=== PATIENT | male | born 1945 | race Caucasian/White ===

== ENCOUNTER 2019-09-22 06:47 | Observation (INO) | payer OTHER, SELFPAY ==
[2019-09-22] VITALS (19 sets, daily range): BP systolic 114–197; BP diastolic 66–91; PULSE 44–94; RESP 12–21; TEMP 36.5–37.1; O2SAT 14–96; BMI 40.8; BMI 39.4
--- NOTE | 2019-09-22 06:52 | CT_ITS ---
We are attempting to reach an attending provider to discuss findings. An addendum with communication details will be sent when the communication is complete. STUDY: CT BRAIN WITHOUT CONTRAST REASON FOR EXAM: Male, 74 years old. Neurological deficit, slurred speech and facial droop. RADIATION DOSAGE (If Supplied By Facility): CTDIvol = ( 44.99 ) mGy, DLP = ( 846.73 ) mGycm TECHNIQUE: Transaxial CT imaging of the brain was performed without administration of intravenous contrast material. Individualized dose optimization techniques were used for this CT. COMPARISON: No relevant priors. FINDINGS: Normal soft tissue structures. Normal calvarium. There is mild cerebral atrophy with widening of the extra-axial spaces and ventricular dilatation. Normal white matter tracts of the cerebral hemispheres. Normal basal ganglia and thalami. Normal brainstem. Normal cerebellum. There is no intracranial hemorrhage. There are no findings of an acute ischemic infarction. There is mild mucosal thickening involving the ethmoidal cells and left frontal sinus consistent with sequela of sinusitis. CT/Brain/Head without Contrast IMPRESSION: Mild generalized brain atrophy along with microangiopathic white matter disease. No acute intracranial hemorrhage or space-occupying lesion. Electronically Signed: Swati Rand MD at 7:12 EST , Service support ,
--- NOTE | 2019-09-22 06:52 | RAD_ITS ---
STUDY: X-RAY CHEST REASON FOR EXAM: Male, 74 years old. Arrhythmia. TECHNIQUE: Single AP portable view of the chest. COMPARISON: None. FINDINGS: EKG electrodes are seen. The lungs are clear and expanded. There is no demonstrated pleural abnormality. There is moderate cardiac enlargement. Normal mediastinum and george. Normal visualized pulmonary arteries. There is atherosclerotic tortuosity of the aortic arch and descending thoracic aorta. There are diffuse degenerative changes of the visualized thoracic spine. There is degenerative osteoarthritis of the bilateral shoulders. There is no demonstrated abnormality of the visualized soft tissue structures of the upper abdomen. RAD/Chest 1 View IMPRESSION: Moderate cardiomegaly. Electronically Signed: Nicola Tarango, at 8:03 EST , Service support ,
--- NOTE | 2019-09-22 06:52 | EKG12_ITS ---
Test Reason : CVA Blood Pressure : / mmHG Vent. Rate : 048 BPM Atrial Rate : 048 BPM P-R Int : 180 ms QRS Dur : 092 ms QT Int : 482 ms P-R-T Axes : 034 -28 013 degrees QTc Int : 430 ms Sinus bradycardia Low voltage QRS Possible Inferior infarct , age undetermined Abnormal ECG Confirmed by CECIL SMITH, FABIOLA ([id number]), video editor LORRIE MALONE ([id number]) on 09/26/2019 9:15:05 AM Referred By: EDUAR Confirmed By:MODE JACOB MD
--- NOTE | 2019-09-22 06:54 | ED.DCSUM_ITS ---
History of Present Illness Chief Complaint: Neuro S/Sx Informant: Family, Chief Cardiopulmonary Technologist Onset: Today Context: - - wake up Timing: Continuous Quality and Location: Slurred Speech, Expressive Aphasia Narrative: Patient is a 74-year-old [employer] male with no known medical history presenting with speech changes. Per EMS report, patient went to bed at 10 PM and was fine. When he woke up this morning his speech was slurred and he had a hard time communicating. EMS was also concerned that he was drooling out of the right side of his mouth. Fingerstick blood glucose was normal. Patient denies any t rauma or falls. He is not on any anticoagulation or any medications besides herbal supplements. He denies any pain or any other complaints at this time. Prior similar symptoms: No Recent Illness/Hospitalization: No Past Medical History - Allergies and Home Meds Allergies/Adverse Reactions: Allergies No Known Allergies Allergy (Verified 09/22/19 06:51) Primary Care Physician: Chris Santana DO [Primary Care Provider] - Past Medical History: None Surgical History: noncontributory Lives: With Family Alcohol: None Drugs: None Review of Systems General: Denies: Chills, Fever, Sweats Eyes: Denies: Visual changes - bilaterally, Diplopia Cardiovascular: Denies: Chest pain, Palpitations Respiratory: Denies: Dyspnea, Cough Gastrointestinal: Denies: Abdominal pain, Nausea, Vomiting Genitourinary: Denies: Dysuria, Hematuria, Frequency Musculoskeletal: Denies: Back pain, Extremity Pain Skin: Denies: Rash, Wounds Neurological: Reports: - - Unable to speak. Denies: Headache, Weakness, Numbness STROKE Vital Signs/Narrative: Vital Signs Temp Pulse Resp BP Pulse Ox 09/22/19 06:48 97.7 F L 50 L 18 193/89 H 93 Inital Vital Signs reviewed: Yes - NIHSS Initial 1a Level of Consciousness: 0 1b LOC Questions (Score 2 if aphasic/stupor): 2 1c LOC Commands (Only score 1st attempt): 0 2 Best Gaze (If aphasic, use reflexive mvmts.): 0 3 Visual: 0 4 Facial Palsy: 0 5 Motor Arm Right (UN = amputation/fusion): 0 5 Motor Arm Left: 0 6 Motor Leg Right: 0 6 Motor Leg Left: 0 7 Limb ataxia (Only + if out of proportion): 0 8 Sensory (Aphasia/stupor=0 or 1, coma=2): 0 9 Best Language: 2 10 Dysarthria (mute, coma=2, intubated=UN): 2 11 Extinction and Inattention (only scored if +): 0 Total Score: 6 General: Well nourished, Well developed Head: Normocephalic, Atraumatic Eyes: Perrl, EOMI ENT: Moist mucous membranes, No rhinorrhea Neck: Supple, Nontender Cardiovascular: Regular rate, Regular rhythm, No murmurs Respiratory: No distress, CTA bilaterally, Chest nontender Abdomen: Soft, Nontender, Nondistended, Normal bowel sounds Back: Nontender, Normal Inspection Extremities: Nontender, No edema Skin: Normal color, No rash Neurological: Alert, Oriented x3, Cranial nerves II-XII grossly intact, Normal Strength, Normal Sensation. Negative for: Parasthesia, Left side facial droop, Right side facial droop Psychological: Normal affect Diagnostic/Tx/Re-eval - Rhythm Strip Rhythm Strip: Sinus bradycardia Ectopy: None - EKG Initial EKG Interpretation: Sinus Bradycardia, - - This bradycardia at a rate of 48 IA interval 180 QRS 92 QT/QTc 482/430 Left axis deviation Normal ST segments - Medical Decision Making Stroke Team Activated: Yes Reviewed Inclusion/Exclusion criteria: Yes Was Patient considered for Endovascular Intervention?: Yes IV Alteplase (t-PA) Administered: No Patient is evaluated for what appears to be a wake-up stroke. Patient is an NIH of 6. He has no other complaints. Patient is hypertensive and mildly bradycardic but he is alert and following commands easily. Stat head CT shows no acute intracranial process. Tele-stroke evaluated patient and recommends transfer for potential thrombectomy. CT of the head and neck is obtained to see if that is a viable option. Patient was signed out to oncoming physician for final disposition and reviewing the results. Anticipate admission. If CTA of the head and neck shows a large vessel occlusion, patient will be transferred to [facility] or [facility] for thrombectomy. ED Disposition - Plan for ED Patient: Diagnosis: Expressive aphasia Referrals: Chris Santana DO [Primary Care Provider] -
--- NOTE | 2019-09-22 06:56 | ED.RN ---
[facility] EMERGENCY LINE CONTACT AT THIS TIME
[2019-09-22 07:18] LABS: Absolute Lymphocyte Count 1.41 X10^3/uL (0.83-4.51); Absolute Neutrophil Count 1.8 X10^3/uL (2.0-7.7); Basophil# 0.01 X10^3/uL; Basophil% 0.2 % (0-1); Eosinophil# 0.04 X10^3/uL; Hematocrit 40.2 % (40-54); Hemoglobin 12.9 g/dL (13.0-16.5); Lymphocyte # 1.41 X10^3/ul (4.0); Lymphocyte % 34.9 % (19-41); Mean Corp Hgb Conc 32.1 g/dL (32-36); Mean Corpuscular Hgb 32.7 pg (27.0-32.0); Mean Corpuscular Volume 101.8 fL (80-94); Monocyte% 17.3 % (0-10); NRBC Flagged by Analyzer 0 % (0-5); Neutrophil % 44.6 % (47-70); Platelet Count 119 K/mm3 (150-450); RBC Distribution Width CV 12.4 % (11.6-14.6); RBC Distribution Width SD 46.4 fl (35.1-43.9); Red Blood Count 3.95 M/mm3 (4.6-6.2)
--- NOTE | 2019-09-22 07:18 | CT_ITS ---
HISTORY: CVA APHASIA STARTED THIS AM TECHNIQUE: CT angiogram of the brain was performed with IV contrast. CT angiogram images of the neck were obtained with IV contrast. 3D reconstructions were reviewed to aid in vascular evaluation. NASCET criteria using the distal internal carotid arteries were used for evaluation of stenoses. A radiation dose optimization technique was used for this scan. IV Contrast dosage and agent: 100 ml [id number] Number of images including paperwork: [id number] COMPARISON: Noncontrast CT 09/22/2019 CTA neck: FINDINGS: AORTIC ARCH AND BRANCHES: No dissection. RIGHT CAROTID ARTERIES: No occlusion, significant stenosis or dissection. Mild atherosclerotic plaque at the bifurcation. LEFT CAROTID ARTERIES: No occlusion, significant stenosis or dissection. Mild to moderate atherosclerotic plaque at the bifurcation. RIGHT VERTEBRAL ARTERY: Diminutive, ends in PICA. No occlusion, significant stenosis or dissection. LEFT VERTEBRAL ARTERY: No occlusion, significant stenosis or dissection. NECK SOFT TISSUES: Unremarkable. LUNG APICES: Unremarkable. BONES: Unremarkable. IMPRESSION: No significant stenosis of either internal carotid artery. CTA head: FINDINGS: INTERNAL CAROTID ARTERIES: No significant stenosis of the intracranial segments. ANTERIOR CEREBRAL ARTERIES: No significant stenosis of the visualized segments. 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 MIDDLE CEREBRAL ARTERIES: No significant stenosis of the visualized segments. VERTEBRAL ARTERIES: Diminutive on the right, ends in PICA. No significant stenosis of the intradural/visualized segments on the left. BASILAR ARTERY: No significant stenosis. POSTERIOR CEREBRAL ARTERIES: No significant stenosis of the visualized segments. POSTERIOR COMMUNICATING ARTERIES: Visualized on the right No evidence of or vascular malformation. CT/CTA Head AND Neck W/ Contrast IMPRESSION: No arterial occlusion or vascular malformation. Anterior communicating artery aneurysm. Individualized dose optimization techniques were used for this CT. at 0756 Reported and signed by: Pricila Dill MD N.B. : The above information has been verbally conveyed by Pricila Dill MD to Dr. Javier on 09/22/2019 07:56:17 (ET). Electronically Signed: Pricila Dill MD at 7:56 EST Tel , Service support ,
--- NOTE | 2019-09-22 07:20 | ED.RN ---
DISCUSSION WITH PATIENT AND FAMILY AT THIS TIME ABOUT CARE OF PLAN FOR PATIENT. [facility] NEUROLOGIST WOULD LIKE PATIENT TRANSFERRED AT THIS TIME FOR FURTHER TREATMENT. DISCUSSION MADE TO COMPLETE CTA OF HEAD AND NECK AND DECIDED ON TREATMENT PLAN FAMILY DECIDING WHETHER TO BE TRANSFERRED TO [facility] FOR [facility]
[2019-09-22 07:22] LABS: Anion Gap 4 (5-15); BUN 24 mg/dL (7-18); BUN/Creat Ratio 19.7 RATIO (10-20); Chloride 108 mmol/L (98-107); Creatinine, Serum 1.22 mg/dL (0.70-1.30); EST Glomerular Filtration Rate 61 mL/min (>60); Est Glom Filt Rate - Afr Amer 74 mL/min (>60); Estimated Creatinine Clearance 51.51 ml/min; Glucose 97 mg/dL (74-106); Potassium 4.2 mmol/L (3.5-5.1); Sodium Level 140 mmol/L (136-145)
--- NOTE | 2019-09-22 07:23 | ED.RN ---
PATIENT TO CT FOR CTA AT THIS TIME
[2019-09-22 07:25] LABS: International Normalized Ratio 1.1; Prothrombin Time (Protime)PT. 14.2 SECONDS (11.7-14.9)
[2019-09-22 07:26] LABS: Partial Thromboplast Time 29.7 Seconds (24.1-36.2)
--- NOTE | 2019-09-22 07:57 | ED.RN ---
[facility] PAGED FOR DR WITT TO SPEAK TO [facility] NEUROLOGIST
--- NOTE | 2019-09-22 08:40 | HP.PCM_ITS ---
History of Present Illness Date of Admission: 09/22/19 Chief Complaint: slurred speech The patient is a 74 year old M with significant past medical history. He was admitted through the ED on 09/22/2019 with complaint of slurred speech. His last known well was approximately 5:30 AM this morning. He woke up and said he was able to see if you would normally but then suddenly started having slurring of speech. He was unable to communicate effectively with his family as he could not express what he wanted to say and had to write down everything he wanted to say. He denied any headache, blurred vision, mouth droop, focal weakness, numbness or tingling. He is never had symptoms like these before. Review of systems was otherwise negative. In the ED, vitals were significant for heart rate of 44 and blood pressure 146/77 was otherwise unremarkable. Chemistry was unremarkable and CBC was significant for hemoglobin of 12.9 and MCV of 101.8 but was otherwise unremarkable. Initial troponin was negative and lipid panel was also unremarkable. Brain CT showed mild generalized brain atrophy with microangiopathic white matter with no acute intracranial process. CTA of the head and neck showed no arterial occlusion or vascular malformation and an anterior communicating artery aneurysm. [] Past Medical History Allergies No Known Allergies Allergy (Verified 09/22/19 06:51) Home Medications: Ambulatory Orders Medication Instructions Recorded NK 09/22/19 Surgical History: noncontributory Psychiatric History: No pertinent psych hx Lives: With Family Smoking Status: Never smoker Alcohol: None Drugs: None - *Family History Paternal History Items: Heart Disease Review of Systems Constitutional: Denies: Chills, Fever, Malaise, Weakness, Weight Change Eyes: Denies: Blurred vision, Double vision HEENT: Denies: Dysphasia, Head Aches, Sinus Congestion, Sinus Drainage Cardiovascular: Denies: Chest Pain, Chest Pressure, Palpitations Respiratory: Denies: Cough, Shortness of Breath, Shortness of breath at rest, Shortness of breath upon exertion, Sputum production Gastrointestinal: Denies: Abdominal Pain, Nausea, Vomiting Genitourinary: Denies: Dysuria Musculoskeletal: Denies: Joint Pain, Joint Tenderness Skin: Denies: Rash, Wounds Neurological: Reports: Change in Speech, Slurred speech. Denies: Double vision, Focal weakness, Headaches, Incoordination, Numbness, Tingling, Tremor Psychiatric: Denies: Anxiety, Depression, Homicidal Ideations, Suicidal Ideations Hematologic/ Lymphatic: Denies: Easy Bruising, Easy Bleeding VTE Information - Inpt Only VTE Present on Admission: No VTE Pharm Prophylaxis ordered?: Yes Patient Problems: Active and Suspected Problems Expressive aphasia (Acute) Stroke (Acute) - Physical Exam Vitals/I&O's: Vital Signs Temp Pulse Resp BP Pulse Ox 97.8 F 46 L 15 184/82 H 96 09/22/19 08:00 09/22/19 08:00 09/22/19 08:00 09/22/19 08:00 09/22/19 08:00 Oxygen Delivery Method Room Air Weight: 276 lb 10.882 oz Body Mass Index (BMI) 40.8 Finger Stick Blood Glucose 108 General: Alert, Oriented x3, Cooperative, No apparent distress HEENT: Atraumatic, PERRLA, EOMI, Normocephalic Oral: Moist Mucosa Neck: Supple, No JVD, Negative Carotid Bruits Lungs: Clear to auscultation, Normal air movement Cardiovascular: Regular rate, No murmurs Abdomen: Bowel Sounds Present, Soft, Non Tender Extremities: No edema, Capillary Refill Less than 3 Seconds Skin: No rashes, No breakdown Musculoskeletal: No Tenderness to Palpation of Joints or Extremities Lymphatic: No Cervical, Supraclavicular, or Inguinal Adenopathy Neurological: Cranial nerves II-XII grossly intact, Motor Exam 5/5 strength throughout, Slurred Speech, Muscle tone normal, Sensory exam intact to light touch and pain, Coordination normal Psych/Mental Status: Normal Affect, Appropriate, Alert and oriented to time, place, person, mood and affect Laboratory Results 09/22/19 06:55: PT Cancelled, INR Cancelled, APTT Cancelled 09/22/19 06:55: Sodium 140, Potassium 4.2, Chloride 108 H, Carbon Dioxide 28.0, Anion Gap 4 L, BUN 24 H, Creatinine 1.22, Estim Creat Clear Calc 51.51, Est GFR (MDRD) Af Amer 74, Est GFR (MDRD) Non-Af 61, BUN/Creatinine Ratio 19.7, Glucose 97, Calcium 9.0, Troponin I < 0.015 09/22/19 07:05: WBC 4.0 L, RBC 3.95 L, Hgb 12.9 L, Hct 40.2, MCV 101.8 H, MCH 32.7 H, MCHC 32.1, RDW Std Deviation 46.4 H, RDW Coeff of Alonso 12.4, Plt Count 119 L, MPV 11.0, Immature Gran % (Auto) 2.000 H, Neut % (Auto) 44.6 L, Lymph % (Auto) 34.9, [place] % (Auto) 17.3 H, Eos % (Auto) 1.0, Baso % (Auto) 0.2, Absolute Neuts (auto) 1.8 L, Absolute Lymphs (auto) 1.41, Nucleated RBC % 0 09/22/19 07:05: PT 14.2, INR 1.1, APTT 29.[address] 09/22/19 06:52 IMPRESSION: Mild generalized brain atrophy along with microangiopathic white matter disease. No acute intracranial hemorrhage or space-occupying lesion. Electronically Signed: Swati Rand MD at 7:12 EST , Service support , ADDENDUM: 09/22/19 0722 IMPRESSION: Mild generalized brain atrophy along with microangiopathic white matter disease. No acute intracranial hemorrhage or space-occupying lesion. N.B. : The above information has been verbally conveyed by Swati Rand MD to Dr Johanny MD, on 09/22/2019 07:15:34 (ET). Electronically Signed: Swati Rand MD at 7:12 EST , Service support , Chest X-Ray 09/22/19 06:52 IMPRESSION: Moderate cardiomegaly. Electronically Signed: Nicola Tarango, at 8:03 EST , Service support , Head/Neck CTA 09/22/19 07:18 IMPRESSION: No arterial occlusion or vascular malformation. Anterior communicating artery aneurysm. Individualized dose optimization techniques were used for this CT. at 0756 Reported and signed by: Pricila Dill MD N.B. : The above information has been verbally conveyed by Pricila Dill MD to Dr. Javier on 09/22/2019 07:56:17 (ET). Electronically Signed: Pricila Dill MD at 7:56 EST Tel , Service support , ADDENDUM: 09/22/19 0803 IMPRESSION: No arterial occlusion or vascular malformation. Anterior communicating artery aneurysm. Individualized dose optimization techniques were used for this CT. at 0756 Reported and signed by: Pricila Dill MD N.B. : The above information has been verbally conveyed by Pricila Dill MD to Dr. Javier on 09/22/2019 07:56:17 (ET). Electronically Signed: Pricila Dill MD at 7:56 EST Tel , Service support , Brain MRI 09/22/19 11:16 IMPRESSION: Involutional changes of the brain, as described above. Focal gliosis of the cortex of the left parietal lobe likely from prior infarct. No restricted diffusion on the ADC map to suggest acute infarct. Electronically Signed: Benji Noble MD at 13:01 EST Tel , Service support , Assessment/Plan All Active Problems Expressive aphasia (Acute) Stroke (Acute) 74 y/o male admitted with a complaint of slurred speech 1. Acute expressive aphasia due to acute ischemic CVA * admit to PCU with telemetry * NIHSS on admission on floor was 3, but it was 6 in ED, [facility] telestroke consult was done and patient was deemed not meeting criteria for tPA. * CT brain was negative for any acute intracranial process * CTA head/neck: no evidence of arterial occlusion or vascular malformation and an anterior communicating artery aneurysm * lipid panel is WNL * EKG showed no acute ST changes * check A1C * Po aspirin 81mg daily * MRI of brain ordered: showed involutional changes of brain with focal gliosis of corerx of left parietal lobe likely from prior infarct; no evidence of acute infarct. However, per discussion with neurology, he thinks this is an acute CVA * 2D echo * 30 day event recorder upon discharge * consult neurology * PT/OT consult * 2. Bradycardia: HR was 50 on admission, and has gone as low as 44. Will check TSH. Echo pending. If it persists, will get cardiology consult. DVT prophylaxis: lovenox Code Visit OBSV E&M: 53665 Initial observation care L2
--- NOTE | 2019-09-22 11:16 | ECHOCS_ITS ---
Reason For Study: TIA/CVA Procedure This was a 2D Doppler, Color Flow transthoracic echocardiogram. The study was technically difficult. The study was technically limited. Due to body habitus. Contrast injection was performed. Exam performed portable in patient room. Left Ventricle Mild concentric left ventricular hypertrophy. The estimated ejection fraction is 65 %. Stage 1 diastolic dysfunction. No regional wall motion abnormalities noted. Right Ventricle Normal size and thickness. Normal systolic function. Atria Normal left atrium. Normal right atrium. Normal atrial septum. Mitral Valve The mitral valve is structurally normal. No prolapse or stenosis seen. Tricuspid Valve Normal tricuspid valve. Unable to estimate RV systolic pressure due to insufficient tricuspid regurgitant envelope. Aortic Valve Normal aortic valve. Trisinus/trileaflet aortic valve. Pulmonic Valve Normal pulmonic valve. Great Vessels Normal aortic root. Normal arch. Normal inferior vena cava. Inferior vena cava collapse with sniff. Pericardium/Pleural No pericardial effusion. Medication Diluted definity 7.0ml given slow IV push to enhance endocardial definition. MMode/2D Measurements & Calculations LVIDd: 5.4 cm IVSd: 1.3 cm Ao root diam: 3.2 cm LVIDs: 3.4 cm LVPWd: 1.5 cm FS: 38.1 % LA dimension(2D): 4.5 cm Time Measurements MV dec time: 0.29 sec Doppler Measurements & Calculations MV E max jalen: 42.5 cm/sec Ao V2 max: 142.8 cm/sec LV V1 max: 107.4 cm/sec MV A max jalen: 67.3 cm/sec Ao max P.2 mmHg LV V1 max P.6 mmHg MV E/A: 0.63 PA V2 max: 110.3 cm/sec Interpretation Summary Mild concentric left ventricular hypertrophy. The estimated ejection fraction is 65 %. Stage 1 diastolic dysfunction. Unable to estimate RV systolic pressure due to insufficient tricuspid regurgitant envelope. The study was technically difficult. Contrast injection was performed. There is no comparison study available. Ordering Physician: Katy Thomas Referring Physician: Chris Santana Performed By: Lawanda Michael RDCS, RVT
--- NOTE | 2019-09-22 11:16 | MRI_ITS ---
STUDY: MRI BRAIN WITHOUT CONTRAST REASON FOR EXAM: Male, 74 years old. Slurred speech TECHNIQUE: Standardized multiplanar fat and water weighted pulse sequences were obtained. COMPARISON: CT 09/22/2019 FINDINGS: There is mild cerebral atrophy with widening of the extra-axial spaces and ventricular dilatation. There are a limited number of small white matter hyperintensities, distributed throughout the deep white matter tracts of the cerebral hemispheres, consistent with mild chronic white matter ischemic changes. Focal hyperintensity of the cortex of the left parietal lobe consistent with gliosis from a prior infarct. There is no evidence for recent intracranial ischemia or other cause of cytotoxic edema on diffusion weighted imaging (DWI). Normal T2* images of the brain without demonstrated susceptibility artifact. There is no demonstrated hemosiderin stain. Normal bilateral basal ganglia. Normal thalami. There is no extra-axial fluid accumulation. Normal flow voids within the major intracranial circulation suggesting patency by spin echo criteria. There is enlargement of the sella turcica with increased CSF within the sella and flattening of the pituitary gland consistent with an empty sellar syndrome. Normal infundibular stalk, hypothalamus, and optic chiasm. Normal tectal plate and pineal gland. Normal midbrain, jose and medulla. 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 Normal basal cisterns. Normal bilateral temporal bones. Normal bilateral internal auditory canals. No demonstrated orbital abnormality, within the constraints of a routine brain study. Normal visualized paranasal sinuses. Normal calvarium and skull base. Normal visualized soft tissue structures. Normal visualized upper cervical spine. MRI/Brain without Contrast IMPRESSION: Involutional changes of the brain, as described above. Focal gliosis of the cortex of the left parietal lobe likely from prior infarct. No restricted diffusion on the ADC map to suggest acute infarct. Electronically Signed: Benji Noble MD at 13:01 EST Tel , Service support ,
[2019-09-22 12:03] LABS: Cholesterol 189 mg/dL (200); High Density Lipoprotein 57 mg/dL; Triglycerides 74 mg/dL; Very Low Density Lipoprotein 15 mg/dL (5-40)
--- NOTE | 2019-09-22 14:07 | PCM.CONS.GEN ---
Problem List (1) Stroke Status: Acute (2) Expressive aphasia Status: Acute Reason for Consult Date of Consultation: 09/22/19 Reason for Consultation: Stroke History of Present Illness: The patient is a 74 year old M with no significant past medical history admitted with expressive aphasia. Per patient was normal when he went to sleep last night 09/21/2019 and then when he woke up this morning, initially she felt that he could speak a sentence but later started having slurred speech and speech disturbances. On admission [facility] telemetry stroke was consulted by [facility] ED, NIHSS was 7 per documentation and since the time of onset was not clear, it was considered to be a wake-up stroke and patient was considered out of the TPA window and not a TPA candidate. I was consulted for possible stroke this afternoon 09/22/2019 and I saw the patient around 2 PM, patient continued to have expressive aphasia, NIHSS stroke scale was 2. and daughter at bedside, per he still continues to work, does not drive, denies any falls, does not use any cane or walker to ambulate, does not need any assistance with this ADLs. Per he does not take any medications at baseline. CT head reported nothing acute. MRI brain on my review of images does show acute left MCA stroke but per radiology report focal gliosis in the cortex of the left parietal lobe likely from prior infarct and no restricted diffusion on ADC map to suggest acute infarct but again on my review there seems to be a clear restriction diffusion on the ADC map in the left MCA distribution. CTA head/neck did not show any hemodynamically significant stenosis or occlusion. [] Past Medical History Allergies No Known Allergies Allergy (Verified 09/22/19 06:51) Home Medications: Ambulatory Orders Medication Instructions Recorded NK 09/22/19 Surgical History: noncontributory Psychiatric History: No pertinent psych hx Lives: With Family Smoking Status: Never smoker Alcohol: None Drugs: None - *Family History Paternal History Items: Heart Disease Review of Systems Constitutional: Reports: - - Complete ROS negative except as documented in HPI Patient Problems: Active and Suspected Problems Expressive aphasia (Acute) Stroke (Acute) - Physical Exam Vitals/I&O's: Vital Signs Temp Pulse Resp BP Pulse Ox 98.4 F 44 L 18 146/77 H 96 09/22/19 10:25 09/22/19 10:41 09/22/19 10:25 09/22/19 10:25 09/22/19 10:25 Oxygen Delivery Method Room Air Weight: 121 kg Body Mass Index (BMI) 39.4 Finger Stick Blood Glucose 108 Intake and Output for Last 24 Hours 09/20/19 09/21/19 09/22/19 23:59 23:59 23:59 Intake Total 60 / 60 Balance 60 / 60 General: Alert HEENT: Normocephalic Neck: Supple Lungs: Normal air movement Cardiovascular: Normal S1, Normal S2 Abdomen: Bowel Sounds Present Extremities: No cyanosis Neurological: - - Conscious, alert, AOA x3, CN II to XII grossly intact, power 5/5 both upper and lower extremities, plantars right mute, left flexor, no pronator drift, no sensory loss, no cerebellar signs, gait deferred, reflexes + B/L B/S/T/K/A, No NR, fundus not visualized, expressive aphasia present, NIHSS 2 at present, mRS 0 at baseline Psych/Mental Status: Normal Affect Laboratory Results 09/22/19 06:55: PT Cancelled, INR Cancelled, APTT Cancelled 09/22/19 06:55: Sodium 140, Potassium 4.2, Chloride 108 H, Carbon Dioxide 28.0, Anion Gap 4 L, BUN 24 H, Creatinine 1.22, Estim Creat Clear Calc 51.51, Est GFR (MDRD) Af Amer 74, Est GFR (MDRD) Non-Af 61, BUN/Creatinine Ratio 19.7, Glucose 97, Calcium 9.0, Troponin I < 0.015 09/22/19 07:05: WBC 4.0 L, RBC 3.95 L, Hgb 12.9 L, Hct 40.2, MCV 101.8 H, MCH 32.7 H, MCHC 32.1, RDW Std Deviation 46.4 H, RDW Coeff of Alonso 12.4, Plt Count 119 L, MPV 11.0, Immature Gran % (Auto) 2.000 H, Neut % (Auto) 44.6 L, Lymph % (Auto) 34.9, Cecil % (Auto) 17.3 H, Eos % (Auto) 1.0, Baso % (Auto) 0.2, Absolute Neuts (auto) 1.8 L, Absolute Lymphs (auto) 1.41, Nucleated RBC % 0 09/22/19 07:05: PT 14.2, INR 1.1, APTT 29.7 09/22/19 11:30: Troponin I < 0.015, Triglycerides 74, Cholesterol 189, LDL Cholesterol 117, VLDL Cholesterol 15, HDL Cholesterol 57 09/22/19 11:30: Hemoglobin A1c 6.0 Current Medications Aspirin (Aspirin, Baby) 81 mg PO DAILY@0800 SELINA Atorvastatin Calcium (Lipitor) 80 mg PO QHS [facility] Dextrose (D50w Syringe) 0 gm IV X1 PRN; Protocol PRN Reason: Hypoglycemia Enoxaparin Sodium (Lovenox) 40 mg SC DAILY@1000 SELINA Glucagon () 1 mg IM .X1 PRN PRN Reason: Hypoglycemia Sodium Chloride () 250 mls @ 15 mls/hr IV .[id number] PRN PRN Reason: Saline Flush Sodium Chloride () 10 - 40 ml IV UD PRN PRN Reason: SALINE FLUSH Assessment/Plan All Active Problems Expressive aphasia (Acute) Stroke (Acute) The patient is a 74 year old M with no significant past medical history admitted with expressive aphasia. Per patient was normal when he went to sleep last night 09/21/2019 and then when he woke up this morning, initially she felt that he could speak a sentence but later started having slurred speech and speech disturbances. On admission [facility] telemetry stroke was consulted by [facility] ED, NIHSS was 7 per documentation and since the time of onset was not clear, it was considered to be a wake-up stroke and patient was considered out of the TPA window and not a TPA candidate. I was consulted for possible stroke this afternoon 09/22/2019 and I saw the patient around 2 PM, patient continued to have expressive aphasia, NIHSS stroke scale was 2. and daughter at bedside, per he still continues to work, does not drive, denies any falls, does not use any cane or walker to ambulate, does not need any assistance with this ADLs. Per he does not take any medications at baseline. CT head reported nothing acute. MRI brain on my review of images does show acute left MCA stroke but per radiology report focal gliosis in the cortex of the left parietal lobe likely from prior infarct and no restricted diffusion on ADC map to suggest acute infarct but again on my review there seems to be a clear restriction diffusion on the ADC map in the left MCA distribution. 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 Impression Acute Left MCA stroke AComm Aneurysm Plan -Aspirin 81 mg p.o. once daily. Bleeding risk discussed in detail with the patient. NIHSS 7 on admission. -Lipitor 40 mg PO q hs -MRI brain images reviewed-on my review of images does show acute left MCA stroke but per radiology report focal gliosis in the cortex of the left parietal lobe likely from prior infarct and no restricted diffusion on ADC map to suggest acute infarct but again on my review there seems to be a clear restriction diffusion on the ADC map in the left MCA distribution. 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 -Neurosurgery consult for aneurysm -HbA1c 6, LDL 117 -TTE-p -30-day event recorder on discharge -Stroke risk factors discussed and stroke education provided -Permissive HTN for 24 hrs -exterminator termite goal BP < 130/80 mmHg, goal LDL < 70 and goal Hba1c < 7% -PT/OT/ST -GI/DVT prophylaxis -Fall precautions -Further medical management per hospitalist team -Please call with questions if any -Follow-up with neurology in 4 weeks -Thank you for allowing us to participate in patient's care and management This note has been generated using [employer] dictation software. It may contain incorrect words, spellings and punctuation that were not noted in the review of the note prior to signing Code Visit Inpatient E&M: 38779 Init Hosp L3
[2019-09-22 18:14] LABS: Thyroid Stim Hormone (TSH) 1.25 uIU/mL (0.358-3.74)
[2019-09-22] MEDS: Atorvastatin Calcium 80 MG Tablet PO (22:18)
[2019-09-23] VITALS (8 sets, daily range): BP systolic 123–132; BP diastolic 68–74; PULSE 47–52; RESP 16; TEMP 36.4–37.1; O2SAT 92–93; BMI 39.4
[2019-09-23 06:35] LABS: Absolute Lymphocyte Count 1.31 X10^3/uL (0.83-4.51); Absolute Neutrophil Count 1.9 X10^3/uL (2.0-7.7); Basophil# 0.01 X10^3/uL; Basophil% 0.2 % (0-1); Eosinophil# 0.04 X10^3/uL; Hematocrit 38.5 % (40-54); Hemoglobin 12.4 g/dL (13.0-16.5); Lymphocyte # 1.31 X10^3/ul (4.0); Mean Corp Hgb Conc 32.2 g/dL (32-36); Mean Corpuscular Hgb 32.5 pg (27.0-32.0); Monocyte# 0.77 X10^3/uL; Monocyte% 18.8 % (0-10); NRBC Flagged by Analyzer 0 % (0-5); Neutrophil # 1.91 X10^3/uL (2.7-7.7); Neutrophil % 46.8 % (47-70); Platelet Count 122 K/mm3 (150-450); RBC Distribution Width CV 12.6 % (11.6-14.6); RBC Distribution Width SD 47.5 fl (35.1-43.9); Red Blood Count 3.81 M/mm3 (4.6-6.2); White Blood Count 4.1 K/mm3 (4.4-11.0)
[2019-09-23 06:49] LABS: Anion Gap 5 (5-15); BUN 20 mg/dL (7-18); BUN/Creat Ratio 16.1 RATIO (10-20); Calcium,Total 8.6 mg/dL (8.5-10.1); Chloride 105 mmol/L (98-107); Creatinine, Serum 1.24 mg/dL (0.70-1.30); EST Glomerular Filtration Rate 60 mL/min (>60); Est Glom Filt Rate - Afr Amer 73 mL/min (>60); Estimated Creatinine Clearance 50.68 ml/min; Glucose 106 mg/dL (74-106); Potassium 4.2 mmol/L (3.5-5.1); Sodium Level 140 mmol/L (136-145)
[2019-09-23] MEDS: Aspirin 81 MG TAB.CHEW PO (09:59)
[2019-09-23] MEDS: Enoxaparin 40 MG/0.4 ML Syringe SC (09:59)
--- NOTE | 2019-09-23 11:37 | DCINST_ITS ---
- Discharge Diagnoses Current Active Problems: Current Active and Chronic Problems Expressive aphasia (Acute) Stroke (Acute) You will use the following diet at home:: Cardiac Your food should be the consistency of: Regular Your liquids should be the consistency of: Regular/Thin Discharge Activity: Return to Normal Activity Call your doctor if you observe: Numbness or Tingling, - - worsening speech Instructions: Stroke and Heart Disease Additional Instructions: to have speech therapy on outpatient basis Allergies/Adverse Reactions: Allergies No Known Allergies Allergy (Verified 09/22/19 06:51) Medications to take at Discharge Aspirin [Aspirin, Baby] 81 mg PO DAILY@0800 #30 tab.chew 09/23/19 Atorvastatin Calcium 40 mg PO QHS #30 tab 09/23/19 Lisinopril [Zestril] 10 mg PO DAILY #30 tab 09/23/19 The following prescriptions were given: Aspirin [Aspirin, Baby] 81 mg PO DAILY@0800 #30 tab.chew Transmission Status: Received by [facility] Atorvastatin Calcium 40 mg PO QHS #30 tab Transmission Status: Pending to [facility] Lisinopril [Zestril] 10 mg PO DAILY #30 tab Transmission Status: Received by [facility] Orders to be completed after discharge: 30-Day Event Recorder [[facility]] Time Frame: 09/23/19, Location: None Selected Primary Care Physician: Chris Santana DO [Primary Care Provider] - Please follow up with your Primary Care Physician in: one week Test Results: Test results from this visit will be discussed in further detail at your follow- up appointment, if applicable. Please Follow Up With: Rubina Vargas MD When: 1-2 weeks Proposed Discharge Date: 09/23/19
--- NOTE | 2019-09-23 11:41 | PCM.DC.SUM ---
Discharge Date and Diagnosis - Problem List Patient Problems: Active and Suspected Problems Expressive aphasia (Acute) Stroke (Acute) Date of Admission: 09/22/19 Date of Discharge: 09/23/19 - Primary Discharge Diagnosis Active and Suspected Problems Expressive aphasia (Acute) Stroke (Acute) Hospital Course and Treatment Imaging Results: Diagnostic Data Brain CT 09/22/19 06:52 IMPRESSION: Mild generalized brain atrophy along with microangiopathic white matter disease. No acute intracranial hemorrhage or space-occupying lesion. Electronically Signed: Swati Rand MD at 7:12 EST , Service support , ADDENDUM: 09/22/19 0722 IMPRESSION: Mild generalized brain atrophy along with microangiopathic white matter disease. No acute intracranial hemorrhage or space-occupying lesion. N.B. : The above information has been verbally conveyed by Swati Rand MD to Dr Johanny MD, on 09/22/2019 07:15:34 (ET). Electronically Signed: Swati Rand MD at 7:12 EST , Service support , Chest X-Ray 09/22/19 06:52 IMPRESSION: Moderate cardiomegaly. Electronically Signed: Nicola Tarango, at 8:03 EST , Service support , Head/Neck CTA 09/22/19 07:18 IMPRESSION: No arterial occlusion or vascular malformation. Anterior communicating artery aneurysm. Individualized dose optimization techniques were used for this CT. at 0756 Reported and signed by: Pricila Dill MD N.B. : The above information has been verbally conveyed by Pricila Dill MD to Dr. Javier on 09/22/2019 07:56:17 (ET). Electronically Signed: Pricila Dill MD at 7:56 EST Tel , Service support , ADDENDUM: 09/22/19 0803 IMPRESSION: No arterial occlusion or vascular malformation. Anterior communicating artery aneurysm. Individualized dose optimization techniques were used for this CT. at 0756 Reported and signed by: Pricila Dill MD N.B. : The above information has been verbally conveyed by Pricila Dill MD to Dr. Javier on 09/22/2019 07:56:17 (ET). Electronically Signed: Pricila Dill MD at 7:56 EST Tel , Service support , Brain MRI 09/22/19 11:16 IMPRESSION: Involutional changes of the brain, as described above. Focal gliosis of the cortex of the left parietal lobe likely from prior infarct. No restricted diffusion on the ADC map to suggest acute infarct. Electronically Signed: Benji Noble MD at 13:01 EST Tel , Service support , neurology- Dr Vargas Operations: None Procedures: 2-D Echocardiogram Summary of Care Provided: The patient is a 74 year old M with significant past medical history. He was admitted through the ED on 09/22/2019 with complaint of slurred speech. His last known well was approximately 5:30 AM this morning. He woke up and said he was able to see if you would normally but then suddenly started having slurring of speech. He was unable to communicate effectively with his family as he could not express what he wanted to say and had to write down everything he wanted to say. He denied any headache, blurred vision, mouth droop, focal weakness, numbness or tingling. He is never had symptoms like these before. Review of systems was otherwise negative. In the ED, vitals were significant for heart rate of 44 and blood pressure 146/77 was otherwise unremarkable. Chemistry was unremarkable and CBC was significant for hemoglobin of 12.9 and MCV of 101.8 but was otherwise unremarkable. Initial troponin was negative and lipid panel was also unremarkable. Brain CT showed mild generalized brain atrophy with microangiopathic white matter with no acute intracranial process. CTA of the head and neck showed no arterial occlusion or vascular malformation and an anterior communicating artery aneurysm. NIH stroke scale in the ED was 7 by the time of review was 3. Patient was discussed by ED doctor with [facility] tele-stroke unit and he was deemed not appropriate for TPA therapy. He was admitted and managed for expressive aphasia, likely due to acute CVA. He had MRI of the brain which showed involutional changes of the brain with focal gliosis of cortex of left parietal lobe likely from prior infarct and no evidence of acute infarct. However neurology is reviewed this and believe that it actually was an acute infarct. Patient was therefore managed for acute CVA. 2D echo done showed EF of 65% with stage I diastolic dysfunction and no regional wall motion abnormalities noted. He was started on aspirin and high intensity atorvastatin. Lipid panel done showed elevated LDL of 117. Of note, during admission, patient was also noted to be bradycardic with heart rate going down into the 40s. However according to patient and his , he had had bradycardia ever since they got with heart rate been as low as 40 and he had been followed up by his PCP and worked up but no cause was found. On day of discharge, patient speech had improved and was much clearer there was still a bit slurred. He was discharged home to have outpatient speech therapy and to also have a 30-day event recorder. 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 He is follow-up with his primary care doctor and neurology. Prior to discharge. Family was by his bedside. He feels much better and had no complaints. Review of systems otherwise negative. Labs and vitals reviewed. Medication reviewed and reconciled. o/e: Vital Signs Height 5 ft 9 in Weight: 266 lb 12.149 oz Weight in Pounds 266.8 lbs Pulse Ox 92 Temperature 98.7 F Pulse Rate 51 Respiratory Rate 16 Blood Pressure 123/74 Blood Pressure Position Semi-Fowlers General: Alert, Oriented x3, Cooperative, No apparent distress HEENT: Atraumatic, PERRLA, EOMI, Normocephalic Oral: Moist Mucosa Neck: Supple, No JVD, Negative Carotid Bruits Lungs: Clear to auscultation, Normal air movement Cardiovascular: Regular rate, No murmurs Abdomen: Bowel Sounds Present, Soft, Non Tender Extremities: No edema, Capillary Refill Less than 3 Seconds Skin: No rashes, No breakdown Musculoskeletal: No Tenderness to Palpation of Joints or Extremities Lymphatic: No Cervical, Supraclavicular, or Inguinal Adenopathy Neurological: Cranial nerves II-XII grossly intact, Motor Exam 5/5 strength throughout, Slurred Speech has improved; Muscle tone normal, Sensory exam intact to light touch and pain, Coordination normal Psych/Mental Status: Normal Affect, Appropriate, Alert and oriented to time, place, person, mood and affect Of note, patient was also started on PO lisinopril 10mg daily o/a of elevated blood pressure on admission; BP was in the 190s systolic on admission. He is to follow up with PCP for adjustment of BP med dosage as needed. Patient Problems: Active and Suspected Problems Expressive aphasia (Acute) Stroke (Acute) - Physical Exam Vitals/I&O's: Vital Signs Temp Pulse Resp BP Pulse Ox 98.7 F 51 L 16 123/74 H 92 09/23/19 09:59 09/23/19 10:59 09/23/19 09:59 09/23/19 09:59 09/23/19 09:59 Oxygen Delivery Method Room Air Weight: 266 lb 12.149 oz Body Mass Index (BMI) 39.4 Finger Stick Blood Glucose 108 Intake and Output for Last 24 Hours 09/21/19 09/22/19 09/23/19 23:59 23:59 23:59 Intake Total 660 / 660 100 / 100 Balance 660 / 660 100 / 100 Laboratory Results 09/22/19 11:30: Troponin I < 0.015, Triglycerides 74, Cholesterol 189, LDL Cholesterol 117, VLDL Cholesterol 15, HDL Cholesterol 57 09/22/19 11:30: Hemoglobin A1c 6.0 09/22/19 11:30: TSH 1.25 09/23/19 05:55: WBC 4.1 L, RBC 3.81 L, Hgb 12.4 L, Hct 38.5 L, MCV 101.0 H, MCH 32.5 H, MCHC 32.2, RDW Std Deviation 47.5 H, RDW Coeff of Alonso 12.6, Plt Count 122 L, MPV 11.0, Immature Gran % (Auto) 1.200 H, Neut % (Auto) 46.8 L, Lymph % (Auto) 32.0, Rush % (Auto) 18.8 H, Eos % (Auto) 1.0, Baso % (Auto) 0.2, Absolute Neuts (auto) 1.9 L, Absolute Lymphs (auto) 1.31, Nucleated RBC % 0 09/23/19 05:55: Sodium 140, Potassium 4.2, Chloride 105, Carbon Dioxide 30.0, Anion Gap 5, BUN 20 H, Creatinine 1.24, Estim Creat Clear Calc 50.68, Est GFR (MDRD) Af Amer 73, Est GFR (MDRD) Non-Af 60, BUN/Creatinine Ratio 16.1, Glucose 106, Calcium 8.6 Current Medications Aspirin (Aspirin, Baby) 81 mg PO DAILY@0800 [facility] Last Admin: 09/23/19 09:59 Dose: 81 mg Documented by: Atorvastatin Calcium (Lipitor) 80 mg PO QHS [facility] Last Admin: 09/22/19 22:18 Dose: 80 mg Documented by: Dextrose (D50w Syringe) 0 gm IV X1 PRN; Protocol PRN Reason: Hypoglycemia Enoxaparin Sodium (Lovenox) 40 mg SC DAILY@1000 [facility] Last Admin: 09/23/19 09:59 Dose: 40 mg Documented by: Glucagon () 1 mg IM .X1 PRN PRN Reason: Hypoglycemia Sodium Chloride () 250 mls @ 15 mls/hr IV .[id number] PRN PRN Reason: Saline Flush Lisinopril (Zestril) 10 mg PO DAILY [facility] Sodium Chloride () 10 - 40 ml IV UD PRN PRN Reason: SALINE FLUSH Discharge Diet: Low fat/ Low Cholesterol Discharge Activity: Return to Normal Activity Call your doctor if you observe: Numbness or Tingling, - - worsening speech Home Medications: Medications to take at Discharge Aspirin [Aspirin, Baby] 81 mg PO DAILY@0800 #30 tab.chew 09/23/19 Atorvastatin Calcium 40 mg PO QHS #30 tab 09/23/19 Lisinopril [Zestril] 10 mg PO DAILY #30 tab 09/23/19 Following Prescrptions Were Given to Patient: Aspirin [Aspirin, Baby] 81 mg PO DAILY@0800 #30 tab.chew Transmission Status: Received by [facility] Atorvastatin Calcium 40 mg PO QHS #30 tab Transmission Status: Received by [facility] Lisinopril [Zestril] 10 mg PO DAILY #30 tab Transmission Status: Received by [facility] Other Amb Orders: 30-Day Event Recorder [[facility]] Time Frame: 09/23/19, Location: None Selected Primary Care Physician: Chris Santana DO [Primary Care Provider] - Please follow up with your Primary Care Physician in: one week Please Follow Up With: Rubina Vargas MD When: 1-2 weeks Patient Instructions: Stroke and Heart Disease Disposition: Home Minutes spent on discharge:: 35 Patient Condition:: Stable Medical Necessity - Tobacco Use Smoking Status: Never smoker Meaningful Use Info Meaningful Use Diagnoses (Choose all that apply): None applicable Code Visit OBSV E&M: 65224 Observation care discharge
--- NOTE | 2019-09-23 13:05 | PN.NEURO_ITS ---
Patient Problems: Active and Suspected Problems Expressive aphasia (Acute) Stroke (Acute) Subjective: No issues overnight. Case discussed with the nursing staff. Per patient does snore at night and may have intermittent apneic episodes. Also has morbid obesity. - Physical Exam Vitals/I&O's: Vital Signs Temp Pulse Resp BP Pulse Ox 98.7 F 51 L 16 123/74 H 92 09/23/19 09:59 09/23/19 10:59 09/23/19 09:59 09/23/19 09:59 09/23/19 09:59 Oxygen Delivery Method Room Air Weight: 121 kg Body Mass Index (BMI) 39.4 Finger Stick Blood Glucose 108 Intake and Output for Last 24 Hours 09/21/19 09/22/19 09/23/19 23:59 23:59 23:59 Intake Total 660 / 660 100 / 100 Balance 660 / 660 100 / 100 General: Alert HEENT: Normocephalic Neck: Supple Lungs: Normal air movement Cardiovascular: Normal S1, Normal S2 Abdomen: Bowel Sounds Present Extremities: No cyanosis Neurological: - - Conscious, alert, AOA x3, CN II to XII grossly intact, power 5/5 both upper and lower extremities, plantars right mute, left flexor, no pronator drift, no sensory loss, no cerebellar signs, gait deferred, reflexes + B/L B/S/T/K/A, No NR, fundus not visualized, mild expressive aphasia present, NIHSS 1 at present, mRS 0 at baseline Psych/Mental Status: Normal Affect Laboratory Results 09/22/19 11:30: TSH 1.25 09/23/19 05:55: WBC 4.1 L, RBC 3.81 L, Hgb 12.4 L, Hct 38.5 L, MCV 101.0 H, MCH 32.5 H, MCHC 32.2, RDW Std Deviation 47.5 H, RDW Coeff of Alonso 12.6, Plt Count 122 L, MPV 11.0, Immature Gran % (Auto) 1.200 H, Neut % (Auto) 46.8 L, Lymph % (Auto) 32.0, [place] % (Auto) 18.8 H, Eos % (Auto) 1.0, Baso % (Auto) 0.2, Absolute Neuts (auto) 1.9 L, Absolute Lymphs (auto) 1.31, Nucleated RBC % 0 09/23/19 05:55: Sodium 140, Potassium 4.2, Chloride 105, Carbon Dioxide 30.0, Anion Gap 5, BUN 20 H, Creatinine 1.24, Estim Creat Clear Calc 50.68, Est GFR (MDRD) Af Amer 73, Est GFR (MDRD) Non-Af 60, BUN/Creatinine Ratio 16.1, Glucose 106, Calcium 8.6 Current Medications Aspirin (Aspirin, Baby) 81 mg PO DAILY@0800 [facility] Last Admin: 09/23/19 09:59 Dose: 81 mg Documented by: Atorvastatin Calcium (Lipitor) 80 mg PO QHS [facility] Last Admin: 09/22/19 22:18 Dose: 80 mg Documented by: Dextrose (D50w Syringe) 0 gm IV X1 PRN; Protocol PRN Reason: Hypoglycemia Enoxaparin Sodium (Lovenox) 40 mg SC DAILY@1000 [facility] Last Admin: 09/23/19 09:59 Dose: 40 mg Documented by: Glucagon () 1 mg IM .X1 PRN PRN Reason: Hypoglycemia Sodium Chloride () 250 mls @ 15 mls/hr IV .[id number] PRN PRN Reason: Saline Flush Lisinopril (Zestril) 10 mg PO DAILY [facility] Sodium Chloride () 10 - 40 ml IV UD PRN PRN Reason: SALINE FLUSH STROKE Vital Signs/Narrative: Vital Signs Temp Pulse Resp BP Pulse Ox 09/23/19 10:59 51 L 09/23/19 09:59 98.7 F 52 L 16 123/74 H 92 Diagnostic/Tx/Re-eval - Rhythm Strip Rhythm Strip: Sinus bradycardia Ectopy: None Medical Necessity - Tobacco Use Smoking Status: Never smoker Assessment/Plan All Active Problems Expressive aphasia (Acute) Stroke (Acute) The patient is a 74 year old M with no significant past medical history admitted with expressive aphasia. Per patient was normal when he went to sleep last night 09/21/2019 and then when he woke up this morning, initially she felt that he could speak a sentence but later started having slurred speech and speech disturbances. On admission [facility] telemetry stroke was consulted by [facility] ED, NIHSS was 7 per documentation and since the time of onset was not clear, it was considered to be a wake-up stroke and patient was considered out of the TPA window and not a TPA candidate. I was consulted for possible stroke this afternoon 09/22/2019 and I saw the patient around 2 PM, patient continued to have expressive aphasia, NIHSS stroke scale was 2. and daughter at bedside, per he still continues to work, does not drive, denies any falls, does not use any cane or walker to ambulate, does not need any assistance with this ADLs. Per he does not take any medications at baseline. CT head reported nothing acute. MRI brain on my review of images does show acute left MCA stroke but per radiology report focal gliosis in the cortex of the left parietal lobe likely from prior infarct and no restricted diffusion on ADC map to suggest acute infarct but again on my review there seems to be a clear restriction diffusion on the ADC map in the left MCA distribution. 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 Impression Acute Left MCA stroke AComm Aneurysm Rule out ASHLEE Plan -Aspirin 81 mg p.o. once daily. Bleeding risk discussed in detail with the patient. NIHSS 7 on admission. -Lipitor 40 mg PO q hs -MRI brain images reviewed-on my review of images does show acute left MCA stroke but per radiology report focal gliosis in the cortex of the left parietal lobe likely from prior infarct and no restricted diffusion on ADC map to suggest acute infarct but again on my review there seems to be a clear restriction diffusion on the ADC map in the left MCA distribution. 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 It may contain incorrect words, spellings and punctuation that were not noted in the review of the note prior to signing
--- NOTE | 2019-09-23 13:16 | CASEMGMT ---
After SW attempted several times to complete PHQ-9 for Stroke/TIA patient has politely declined to do screen. Sandy MARTINEZ MSW
[2019-09-23] MEDS: Lisinopril 10 MG Tablet PO (13:58)
== END 2019-09-23 11:41 | disposition home or self-care (01) ==
LOC: ED 07:39 → PCU 09:13
PROVIDERS: Admitting Provider Student in an Organized Health Care Education/Training Program; Emergency Provider Emergency Medicine; Family Provider Family Medicine; PCP Family Medicine; Visit Provider Student in an Organized Health Care Education/Training Program
DX: I63.9 Cerebral infarction, unspecified (principal); R47.01 Aphasia; R29.706 NIHSS score 6; R00.1 Bradycardia, unspecified; I67.1 Cerebral aneurysm, nonruptured; R94.31 Abnormal electrocardiogram [ECG] [EKG]
CPT/HCPCS: 36415; 70450; 70496; 70498; 70551; 71045; 80048; 80061; 83036; 84443; 84484; 85025; 85610; 85730; 92507; 92523; 92610; 93005; 93306; 94762; 96372; 97161; 97166; 97802; 97803; 99218; 99251; 99285; J7030; Q9957; Q9967; A4216; C8929; G0378; G0463

== ENCOUNTER → 2019-09-23 14:16 | Outpatient (REF) | payer OTHER, SELFPAY ==
[2019-09-23 10:27] VITALS: BMI 39.4
== END ==
LOC: CVS 14:16
PROVIDERS: Family Provider Family Medicine; PCP Family Medicine; Visit Provider Student in an Organized Health Care Education/Training Program
DX: Z86.73 Personal history of transient ischemic attack (TIA), and cerebral infarction without residual deficits (principal)
CPT/HCPCS: 93270

== ENCOUNTER 2020-10-12 18:45 | Inpatient (IN) | payer OTHER, SELFPAY ==
[2019-09-23 10:27] VITALS: BMI 39.4
[2020-10-12] VITALS (8 sets, daily range): BP systolic 138–173; BP diastolic 77–90; PULSE 56–86; RESP 18–28; TEMP 36.2–36.7; O2SAT 80–97; BMI 37.6
--- NOTE | 2020-10-12 18:55 | EKG12_ITS ---
Test Reason : SOB Blood Pressure : / mmHG Vent. Rate : 058 BPM Atrial Rate : 058 BPM P-R Int : 150 ms QRS Dur : 082 ms QT Int : 446 ms P-R-T Axes : 000 -40 -09 degrees QTc Int : 437 ms Sinus bradycardia Left axis deviation Low voltage QRS Inferior infarct , age undetermined Possible Anterolateral infarct , age undetermined Abnormal ECG Confirmed by JANET SMITH, LOUIE ([id number]), senior technical editor MANISH OSHEA ([id number]) on 10/17/2020 9:23:03 AM Referred By: KAVITHA Confirmed By:LOUIE GONZALES MD
--- NOTE | 2020-10-12 18:58 | ED.DCSUM_ITS ---
History of Present Illness Chief Complaint: Shortness of Breath Informant: Patient, Family Onset: Days - 10 days Context: Gradual Onset Current Severity: Moderate Maximum Severity: Moderate Narrative: Patient presents with cough and shortness of breath has been ongoing for the past 10 days. He does report having some fevers. He initially had some nausea and poor appetite but states that seems to be improving. He went to see the doctor today and was told he needed to go to the nearest emergency room because his oxygen level was too low. - Past Medical History (1) Hypertension Status: Chronic (2) High cholesterol Status: Chronic (3) Stroke Status: Chronic Past Medical History - Allergies and Home Meds Allergies/Adverse Reactions: Allergies No Known Allergies Allergy (Verified 10/12/20 18:45) Primary Care Physician: Chris Santana DO [Primary Care Provider] - Surgical History: noncontributory Lives: With Family Smoking Status: Former smoker - Family History Paternal Family History: Reports: Heart Disease Review of Systems General: Reports: Fever Eyes: Denies: Visual changes - bilaterally ENT: Denies: Rhinorrhea, Sore throat Cardiovascular: Denies: Chest pain Respiratory: Reports: Dyspnea, Cough Gastrointestinal: Reports: Nausea - Currently resolved, Diarrhea - Currently resolved. Denies: Abdominal pain Musculoskeletal: Denies: Swelling, Extremity Pain Skin: Denies: Rash Neurological: Denies: Headache Hematologic: Denies: Easy bruising, Easy bleeding Allergy: Denies: Uticaria Physical Exam Vital Signs/Narrative: Vital Signs Temp Pulse Resp BP Pulse Ox 10/12/20 18:49 97.9 F 63 20 H 173/88 H 97 10/12/20 18:46 97.9 F 63 25 H 173/88 H 96 Inital Vital Signs reviewed: Yes General: Well nourished, Well developed Head: Normocephalic Neck: Supple Cardiovascular: Regular rate, Regular rhythm Respiratory: - - Expiratory wheezes bilaterally Abdomen: Soft, Nontender Extremities: Nontender, No edema Skin: Normal color Neurological: Alert, Oriented x3 Psychological: Normal affect Diagnostic/Tx/Re-eval Impressions Chest X-Ray 10/12/20 19:43 IMPRESSION: Findings consistent with Covid 19 pneumonia. Clinical correlation recommended Electronically Signed: Travis Young MD at 20:11 EST , Service support , Chest CTA 10/12/20 21:15 IMPRESSION: No pulmonary embolism, aortic aneurysm, or aortic dissection. Multifocal bilateral peripheral groundglass airspace opacity consistent with pneumonia. In the setting of a global pandemic of Covid 19, this is consistent with Covid 19 pneumonia. Individualized dose optimization techniques were used for this CT. at 2223 Reported and signed by: Chris Holm MD Electronically Signed: Chris Holm MD at 22:21 EST Tel , Service support , 10/12/20 19:43 Chest 1 View (Portable) [RAD] Stat 10/12/20 21:15 CTA Chest W/WO Contrast [CT] Stat Laboratory Results 10/12/20 10/12/20 10/12/20 18:20 19:00 19:00 WBC 7.0 RBC 3.64 L Hgb 11.8 L Hct 36.5 L MCV 100.3 H MCH 32.4 H MCHC 32.3 RDW Std Deviation 48.9 H RDW Coeff of Alonso 13.2 Plt Count 324 MPV 10.4 Neut % (Auto) Not Reportable Absolute Neuts (auto) 4.5 Absolute Lymphs (auto) 0.63 L Total Counted 100 Neutrophils % (Manual) 57 Band Neutrophils % 7 H Lymphocytes % (Manual) 9 L Monocytes % (Manual) 14 H Eosinophils % (Manual) 2 Metamyelocytes % 10 H Myelocytes % 1 H Diff Path Review May foll D-Dimer Quant (PE/DVT) 5.22 H* Sodium Potassium Chloride Carbon Dioxide Anion Gap BUN Creatinine Estim Creat Clear Calc Est GFR (MDRD) Af Amer Est GFR (MDRD) Non-Af BUN/Creatinine Ratio Glucose Lactic Acid Calcium Total Bilirubin AST ALT Alkaline Phosphatase Troponin I Total Protein Albumin Globulin Albumin/Globulin Ratio Procalcitonin COVID-19 (LADY) Positive 10/12/20 10/12/20 10/12/20 19:00 19:00 19:00 WBC RBC Hgb Hct MCV MCH MCHC RDW Std Deviation RDW Coeff of Alonso Plt Count MPV Neut % (Auto) Absolute Neuts (auto) Absolute Lymphs (auto) Total Counted Neutrophils % (Manual) Band Neutrophils % Lymphocytes % (Manual) Monocytes % (Manual) Eosinophils % (Manual) Metamyelocytes % Myelocytes % Diff Path Review D-Dimer Quant (PE/DVT) Sodium 138 Potassium 4.7 Chloride 102 Carbon Dioxide 33.0 H Anion Gap 3 L BUN 22 H Creatinine 1.41 H Estim Creat Clear Calc 45.30 Est GFR (MDRD) Af Amer 63 Est GFR (MDRD) Non-Af 52 L BUN/Creatinine Ratio 15.6 Glucose 170 H Lactic Acid 2.2 H* Calcium 9.0 Total Bilirubin 0.60 AST 47 H ALT 45 Alkaline Phosphatase 77 Troponin I 0.180 H Total Protein 7.8 Albumin 2.8 L Globulin 5.0 H Albumin/Globulin Ratio 0.6 L Procalcitonin 0.07 COVID-19 (LADY) - EKG Initial EKG Interpretation: Sinus Bradycardia - Sinus bradycardia 58 bpm. No acute ischemia. - Medical Decision Making Patient was placed on oxygen on arrival. O2 sats came up into the mid 90s. I did discuss with him his wishes regarding intubation and patient states that he is okay with BiPAP mask but would not want to be intubated on a ventilator. Patient was given a dose of Decadron as well as a DuoNeb treatment. Patient's Covid test does return positive. His troponin is elevated to 0.18. D-dimer was elevated over 5. CTA of the chest reveals no PE, but multifocal pneumonia consistent with Covid pneumonia is appreciated. On repeat evaluation patient is resting comfortably. He remains tachypneic with respiratory rate of 28. His O2 sat is 92% on 6 L nasal cannula. I will speak with hospitalist regarding admission. ED Disposition - Plan for ED Patient: Disposition: Acute Care Hospital [facility] Diagnosis: COVID-19, Pneumonia, Respiratory failure Referrals: Chris Santana DO [Primary Care Provider] -
[2020-10-12] MEDS: dexAMETHasone 10 MG/ML Vial 6 MG IV (19:09)
[2020-10-12 19:34] LABS: Hematocrit 36.5 % (40-54); Hemoglobin 11.8 g/dL (13.0-16.5); Mean Corp Hgb Conc 32.3 g/dL (32-36); Mean Corpuscular Hgb 32.4 pg (27.0-32.0); Mean Corpuscular Volume 100.3 fL (80-94); Mean Platelet Vol. 10.4 fl (6.2-12.0); POSITIVE COUNT YES; POSITIVE MORPHOLOGY YES; Platelet Count 324 K/mm3 (150-450); RBC Distribution Width CV 13.2 % (11.6-14.6); RBC Distribution Width SD 48.9 fl (35.1-43.9); Red Blood Count 3.64 M/mm3 (4.6-6.2)
--- NOTE | 2020-10-12 19:43 | RAD_ITS ---
STUDY: X-RAY CHEST REASON FOR EXAM: Male, 75 years old. SOB,FEVER TECHNIQUE: AP portable COMPARISON: 09/22/2019 FINDINGS: There is interstitial thickening bilaterally within the upper and lower lobes with peripheral areas of groundglass opacity consistent with atypical viral pneumonia.. There is no demonstrated pleural abnormality. Heart is mildly enlarged. Normal mediastinum and george. Normal visualized pulmonary arteries. Normal visualized aortic arch and descending thoracic aorta. Dorsal spine and shoulders demonstrate degenerative change Normal visualized ribs, and clavicles.. There is no demonstrated abnormality of the visualized soft tissue structures of the upper abdomen. RAD/Chest 1 View (Portable) IMPRESSION: Findings consistent with Covid 19 pneumonia. Clinical correlation recommended Electronically Signed: Travis Young MD at 20:11 EST , Service support ,
[2020-10-12 19:51] LABS: Differential Indicated MANUAL DIFF
[2020-10-12] MEDS: Ipratropium/Albuterol Sulfate 3 ML AMPUL.NEB INHALATION (19:53)
[2020-10-12 20:14] LABS: ALB/GLOB Ratio 0.6 RATIO (0.9-2.4); AST(SGOT) 47 U/L (15-37); Alanine Aminotransfer ALT/SGPT 45 U/L (16-61); Albumin, Serum 2.8 g/dL (3.2-5.0); Alkaline Phosphatase 77 U/L (45-117); Anion Gap 3 (5-15); BUN 22 mg/dL (7-18); BUN/Creat Ratio 15.6 RATIO (10-20); Chloride 102 mmol/L (98-107); Creatinine, Serum 1.41 mg/dL (0.70-1.30); EST Glomerular Filtration Rate 52 mL/min (>60); Est Glom Filt Rate - Afr Amer 63 mL/min (>60); Glucose 170 mg/dL (74-106); Potassium 4.7 mmol/L (3.5-5.1); Protein, Total 7.8 g/dL (6.4-8.2); Sodium Level 138 mmol/L (136-145)
[2020-10-12 20:17] LABS: D-Dimer Quantitative (DVT/PE) 5.22 FEU/ug/m (0.27-0.49)
[2020-10-12 20:19] LABS: Lactic Acid 2.2 mmol/L (0.4-1.9); Procalcitonin 0.07 ng/mL (0.00-0.09)
[2020-10-12 20:33] LABS: Probe Check PASS; Specimen Processing Control PASS
[2020-10-12 20:38] LABS: Eosinophil 2 % (0-5); Lymphocyte 9 % (19-41); Metamyelocyte 10 % (0-1); Monocyte 14 % (0-10); Myelocyte 1 (0-0); Neutrophil-Band 7 % (0-5); Neutrophil-Segmented 57 % (47-70); Total Cells Counted 100 (MANUAL DIFF)
[2020-10-12 20:58] LABS: Neutrophil # 4.48 X10^3/uL (2.7-7.7)
[2020-10-12 20:59] LABS: Absolute Lymphocyte Count 0.63 X10^3/uL (0.83-4.51); Absolute Neutrophil Count 4.5 X10^3/uL (2.0-7.7); Lymphocyte # 0.63 X10^3/ul (4.0)
--- NOTE | 2020-10-12 21:15 | CT_ITS ---
HISTORY: PNEUMONIA X 1 WEEK. INCREASE SOB. HX OF CVA AND HERNIA REPAIR. INJECTED PATIENT 2X BEST IMAGES POSSIBLE TECHNIQUE: Helically acquired images were obtained of the chest following the intravenous administration of 100 ML of Isovue-370 Iodinated contrast. as per pulmonary angiogram protocol with 2D , without 3-D MIP reconstructions. The study was performed twice. The first time the contrast bolus was too diffuse with respiratory motion and a nondiagnostic study. The second time the contrast bolus was tighter, earlier, still fraught with respiratory motion. A radiation dose optimization technique was used for this scan. COMPARISON: Chest x-ray from about 1-1/2 hours earlier FINDINGS: # of images incl. paperwork: [id number] Multifocal bilateral peripheral greater than central groundglass airspace opacities are present with rounded margins. There fairly symmetric to be apical and basilar.. No effusions. Within the thoracic spinethere is a very mild kyphosis Vertebral body height is normal. Multilevel degenerative disc disease is mild. Many anterior enthesophytes are bridging over the intervertebral disc spaces throughout the mid to lower thoracic spine Facets are well aligned. No rib lesions are perceived. Heart is not enlarged. Thoracic aorta is normal. No aneurysms, stenoses, dissections, nor occlusions. Mediastinal and hilar adenopathy No pulmonary emboli. Visualized portions of the upper abdomen are without identified acute pathology. CT/CTA Chest W/WO Contrast IMPRESSION: No pulmonary embolism, aortic aneurysm, or aortic dissection. Multifocal bilateral peripheral groundglass airspace opacity consistent with pneumonia. In the setting of a global pandemic of Covid 19, this is consistent with Covid 19 pneumonia. Individualized dose optimization techniques were used for this CT. at 2223 Reported and signed by: Chris Holm MD Electronically Signed: Chris Holm MD at 22:21 EST Tel , Service support ,
--- NOTE | 2020-10-12 23:08 | HP.PCM_ITS ---
Problem List (1) Stroke Status: Chronic (2) Hypertension Status: Chronic (3) High cholesterol Status: Chronic (4) COVID-19 Status: Acute (5) Pneumonia Status: Acute (6) Severe acute respiratory syndrome Status: Acute (7) Expressive aphasia Status: Inactive (8) Respiratory failure Status: Inactive (9) Respiratory failure Status: Inactive History of Present Illness Date of Admission: 10/12/20 Chief Complaint: Cough The patient is a 75 year old M with a significant history of CVA; and hypertension who presents emergency department with 10 days history of a persistent cough. His cough is mostly dry but occasionally it is clear. He has tried home Mucinex. Further he has shortness of breath. He used to have fever but now his fever has resolved. He reports a previous fever of as high as 102 Fahrenheit. Occasionally he has chills. Further, he has diaphoresis. He denies any change in taste or change in smell. Past Medical History Past Medical History (Chronic Problems): Chronic Problems Stroke (Chronic) Hypertension (Chronic) High cholesterol (Chronic) Allergies No Known Allergies Allergy (Verified 10/12/20 18:45) Home Medications: Ambulatory Orders Medication Instructions Recorded Aspirin [Aspirin, Baby] 81 mg PO DAILY@0800 #30 tab.chew 09/23/19 Atorvastatin Calcium 40 mg PO QHS #30 tab 09/23/19 Lisinopril [Zestril] 10 mg PO DAILY #30 tab 09/23/19 Surgical History: herniorrhaphy, - - Surgery on thumb Psychiatric History: No pertinent psych hx Lives: With Family Smoking Status: Former smoker - *Family History Paternal History Items: Heart Disease Maternal History Items: Cancer Review of Systems Constitutional: Reports: Chills. Denies: Fever, Weight Change HEENT: Denies: Head Aches, Sinus Congestion, Sinus Drainage Cardiovascular: Denies: Chest Pain, Palpitations Respiratory: Reports: Cough, Shortness of Breath, Sputum production Gastrointestinal: Denies: Abdominal Pain, Nausea, Vomiting Genitourinary: Denies: Dysuria Musculoskeletal: Denies: Joint Pain, Joint Tenderness Skin: Denies: Rash, Wounds Neurological: Denies: Numbness, Tingling, Focal weakness Psychiatric: Denies: Anxiety, Depression, Homicidal Ideations, Suicidal Ideations Hematologic/ Lymphatic: Denies: Easy Bruising, Easy Bleeding VTE Information - Inpt Only VTE Present on Admission: No VTE Mechan Device Prophylaxis: None VTE Pharm Prophylaxis ordered?: Yes Patient Problems: Active and Suspected Problems COVID-19 (Acute) Pneumonia (Acute) Severe acute respiratory syndrome (Acute) - Physical Exam Vitals/I&O's: Vital Signs Temp Pulse Resp BP Pulse Ox 98 F 56 L 20 H 169/90 H 94 10/12/20 21:49 10/12/20 21:49 10/12/20 21:49 10/12/20 21:49 10/12/20 21:49 Oxygen Flow Rate (L/min) 4 Oxygen Delivery Method Nasal Cannula Weight: 120.7 kg Body Mass Index (BMI) 37.6 Finger Stick Blood Glucose 108 General: Alert, Oriented x3, Cooperative HEENT: Atraumatic, PERRLA, EOMI, Normocephalic Neck: Supple, No JVD, Negative Carotid Bruits Lungs: Rhonchi, Wheezes Cardiovascular: Regular rate, Normal S1, Normal S2, No murmurs Abdomen: Bowel Sounds Present, Soft, Non Tender Extremities: No edema, Capillary Refill Less than 3 Seconds Skin: No rashes, No breakdown Musculoskeletal: No Tenderness to Palpation of Joints or Extremities Neurological: Cranial nerves II-XII grossly intact Psych/Mental Status: Normal Affect, Appropriate Laboratory Results 10/12/20 18:20: COVID-19 (LADY) Positive 10/12/20 19:00: WBC 7.0, RBC 3.64 L, Hgb 11.8 L, Hct 36.5 L, MCV 100.3 H, MCH 32.4 H, MCHC 32.3, RDW Std Deviation 48.9 H, RDW Coeff of Alonso 13.2, Plt Count 324, MPV 10.4, Neut % (Auto) Not Reportable, Absolute Neuts (auto) 4.5, Absolute Lymphs (auto) 0.63 L, Total Counted 100, Neutrophils % (Manual) 57, Band Neutrophils % 7 H, Lymphocytes % (Manual) 9 L, Monocytes % (Manual) 14 H, Eosinophils % (Manual) 2, Metamyelocytes % 10 H, Myelocytes % 1 H, Diff Path Review March10/12/20 19:00: D-Dimer Quant (PE/DVT) 5.22 H* 10/12/20 19:00: Sodium 138, Potassium 4.7, Chloride 102, Carbon Dioxide 33.0 H, Anion Gap 3 L, BUN 22 H, Creatinine 1.41 H, Estim Creat Clear Calc 45.30, Est GFR (MDRD) Af Amer 63, Est GFR (MDRD) Non-Af 52 L, BUN/Creatinine Ratio 15.6, Glucose 170 H, Calcium 9.0, Total Bilirubin 0.60, AST 47 H, ALT 45, Alkaline Phosphatase 77, Troponin I 0.180 H, Total Protein 7.8, Albumin 2.8 L, Globulin 5.0 H, Albumin/Globulin Ratio 0.6 L 10/12/20 19:00: Lactic Acid 2.2 H* 10/12/20 19:00: Procalcitonin 0.07 Assessment/Plan All Active Problems COVID-19 (Acute) Pneumonia (Acute) Severe acute respiratory syndrome (Acute) Acute hypoxemic respiratory insufficiency secondary to SARS COV 2 Patient required 6 L of nasal cannula oxygen at the emergency department. COVID-19 PCR was positive. Impression of chest CTA by radiologist: No pulmonary medicine, aortic aneurysm or aortic dissection. Multifocal bilateral peripheral groundglass airspace opacity consistent with pneumonia. In the setting of a global pandemic of [place] VID-19 is consistent with COVID-19 pneumonia. Actual CTA was independently interpreted. I agree with radiologist interpretation. Chest x-ray was also consistent with COVID-19 pneumonia. Dimer was elevated. However chest CTA did not show any PE. Lactic acid elevated at 2.2; trend. Procalcitonin ordered. Tylenol for fever and Mucinex for cough ordered. Tessalon Perles ordered. Proair as needed ordered. Decadron and remdesivir ordered. His liver biochemistry and creatinine clearance is appropriate for remdesivir. Elevated troponin EKG showed diffuse Q waves. Elevated troponin likely secondary to demand ischemia from Covid. Trend troponin. Continue home aspirin. Hypertension Blood pressure is not within goal. Lisinopril continued. His cough is likely from Covid and not from FREDDY in hibitor. As needed hydralazine ordered. Trend blood pressure and adjust blood pressure medications. History of CVA Aspirin; Lipitor and blood pressure control continued. DVT prophylaxis Subcutaneous Lovenox ordered. Inpatient E&M: [id number] Init Hosp L3
[2020-10-12 23:50] LABS: Reflex Lactate? Y
[2020-10-13] VITALS (7 sets, daily range): BP systolic 135–168; BP diastolic 67–85; PULSE 52–68; RESP 18–24; TEMP 36.4–37.2; O2SAT 91–98; BMI 37.6
[2020-10-13 01:09] LABS: Lactic Acid 1.5 mmol/L (0.4-1.9)
[2020-10-13 04:05] LABS: Hematocrit 34.1 % (40-54); Hemoglobin 10.9 g/dL (13.0-16.5); Mean Corpuscular Hgb 32.4 pg (27.0-32.0); Mean Corpuscular Volume 101.5 fL (80-94); POSITIVE COUNT YES; POSITIVE MORPHOLOGY YES; Platelet Count 321 K/mm3 (150-450); RBC Distribution Width CV 13.3 % (11.6-14.6); RBC Distribution Width SD 50.1 fl (35.1-43.9); Red Blood Count 3.36 M/mm3 (4.6-6.2); White Blood Count 5.3 K/mm3 (4.4-11.0)
[2020-10-13 04:07] LABS: Differential Indicated MANUAL DIFF
[2020-10-13] MEDS: 0.9% Saline Lock 10 ML Syringe IV (04:12)
[2020-10-13 04:25] LABS: ALB/GLOB Ratio 0.6 RATIO (0.9-2.4); AST(SGOT) 31 U/L (15-37); Alanine Aminotransfer ALT/SGPT 42 U/L (16-61); Albumin, Serum 2.8 g/dL (3.2-5.0); Alkaline Phosphatase 66 U/L (45-117); Anion Gap 4 (5-15); BUN 20 mg/dL (7-18); BUN/Creat Ratio 16.3 RATIO (10-20); Calcium,Total 8.8 mg/dL (8.5-10.1); Chloride 102 mmol/L (98-107); Creatinine, Serum 1.23 mg/dL (0.70-1.30); EST Glomerular Filtration Rate 61 mL/min (>60); Est Glom Filt Rate - Afr Amer 73 mL/min (>60); Estimated Creatinine Clearance 51.93 ml/min; Globulin 4.7 g/dL (2.2-4.2); Glucose 155 mg/dL (74-106); Potassium 4.7 mmol/L (3.5-5.1); Protein, Total 7.5 g/dL (6.4-8.2); Sodium Level 137 mmol/L (136-145)
[2020-10-13 04:32] LABS: Total Cells Counted 100 (MANUAL DIFF)
[2020-10-13 04:44] LABS: Blast 1 % (0-0); Lymphocyte 14 % (19-41); Metamyelocyte 5 % (0-1); Monocyte 11 % (0-10); Myelocyte 3 (0-0); Neutrophil-Band 3 % (0-5); Neutrophil-Segmented 62 % (47-70)
[2020-10-13 04:45] LABS: Basophil 1 % (0-1)
[2020-10-13 04:46] LABS: Absolute Neutrophil Count 3.5 X10^3/uL (2.0-7.7); Lymphocyte # 0.74 X10^3/ul (4.0); Neutrophil # 3.46 X10^3/uL (2.7-7.7)
[2020-10-13 04:47] LABS: Absolute Lymphocyte Count 0.74 X10^3/uL (0.83-4.51); Platelet Estimate ADEQUATE (ADEQ)
[2020-10-13 04:48] LABS: Polychromasia RARE
[2020-10-13 04:49] LABS: Anisocytosis 1+; Macrocytosis 1+
[2020-10-13] MEDS: Benzonatate 100 MG Capsule PO (05:35)
--- NOTE | 2020-10-13 11:00 | PCS.PANDOC ---
PANDEMIC DOCUMENTATION INITIATED: Date: 10/13/2020 Time: 9662
[2020-10-13] MEDS: Enoxaparin 30 MG/0.3 ML Syringe SC (11:21)
--- NOTE | 2020-10-13 14:04 | PCM.PN.HOSP ---
Patient Problems: Active and Suspected Problems COVID-19 (Acute) Pneumonia (Acute) Severe acute respiratory syndrome (Acute) Reason for Visit: COVID 19 Subjective: Short of breath. Vitals/I&O's: Vital Signs Temp Pulse Resp BP Pulse Ox 37.1 C 56 L 19 H 142/71 H 92 10/13/20 08:09 10/13/20 08:09 10/13/20 08:09 10/13/20 08:09 10/13/20 08:09 Oxygen Flow Rate (L/min) 4 Oxygen Delivery Method Nasal Cannula Weight: 119 kg Body Mass Index (BMI) 37.6 Finger Stick Blood Glucose 108 Intake and Output for Last 24 Hours 10/11/20 10/12/20 10/13/20 23:59 23:59 23:59 Intake Total 640 / 640 Output Total 700 / 700 Balance -60 / -60 General: Alert, No apparent distress HEENT: Atraumatic, Normocephalic Neck: No Nodes, Thyroid Normal Size and Texture Lungs: Clear to auscultation, Normal air movement, No rhonchi, No wheeze Cardiovascular: Regular rate, Regular Rhythm, Normal S1, Normal S2 Abdomen: Bowel Sounds Present, Soft, Non Tender, Non-Distended Extremities: No Calf Tenderness, Edema - trace Psych/Mental Status: Normal Affect, Appropriate Laboratory Results 10/12/20 18:20: COVID-19 (LADY) Positive 10/12/20 19:00: WBC 7.0, RBC 3.64 L, Hgb 11.8 L, Hct 36.5 L, MCV 100.3 H, MCH 32.4 H, MCHC 32.3, RDW Std Deviation 48.9 H, RDW Coeff of Alonso 13.2, Plt Count 324, MPV 10.4, Neut % (Auto) Not Reportable, Absolute Neuts (auto) 4.5, Absolute Lymphs (auto) 0.63 L, Total Counted 100, Neutrophils % (Manual) 57, Band Neutrophils % 7 H, Lymphocytes % (Manual) 9 L, Monocytes % (Manual) 14 H, Eosinophils % (Manual) 2, Metamyelocytes % 10 H, Myelocytes % 1 H, Diff Path Review March10/12/20 19:00: D-Dimer Quant (PE/DVT) 5.22 H* 10/12/20 19:00: Sodium 138, Potassium 4.7, Chloride 102, Carbon Dioxide 33.0 H, Anion Gap 3 L, BUN 22 H, Creatinine 1.41 H, Estim Creat Clear Calc 45.30, Est GFR (MDRD) Af Amer 63, Est GFR (MDRD) Non-Af 52 L, BUN/Creatinine Ratio 15.6, Glucose 170 H, Calcium 9.0, Total Bilirubin 0.60, AST 47 H, ALT 45, Alkaline Phosphatase 77, Troponin I 0.180 H, Total Protein 7.8, Albumin 2.8 L, Globulin 5.0 H, Albumin/Globulin Ratio 0.6 L 10/12/20 19:00: Lactic Acid 2.2 H* 10/12/20 19:00: Procalcitonin 0.07 10/13/20 00:40: Lactic Acid 1.5 10/13/20 01:20: Troponin I 0.165 H 10/13/20 03:55: WBC 5.3, RBC 3.36 L, Hgb 10.9 L, Hct 34.1 L, MCV 101.5 H, MCH 32.4 H, MCHC 32.0, RDW Std Deviation 50.1 H, RDW Coeff of Alonso 13.3, Plt Count 321, MPV 10.0, Neut % (Auto) Not Reportable, Absolute Neuts (auto) 3.5, Absolute Lymphs (auto) 0.74 L, Total Counted 100, Neutrophils % (Manual) 62, Band Neutrophils % 3, Lymphocytes % (Manual) 14 L, Monocytes % (Manual) 11 H, Basophils % (Manual) 1, Metamyelocytes % 5 H, Myelocytes % 3 H, Blast Cells % 1 H*, Diff Path Review May foll, Platelet Estimate ADEQUATE, Polychromasia RARE, Anisocytosis 1+, Macrocytosis 1+ 10/13/20 03:55: Sodium 137, Potassium 4.7, Chloride 102, Carbon Dioxide 31.0, Anion Gap 4 L, BUN 20 H, Creatinine 1.23, Estim Creat Clear Calc 51.93, Est GFR (MDRD) Af Amer 73, Est GFR (MDRD) Non-Af 61, BUN/Creatinine Ratio 16.3, Glucose 155 H, Calcium 8.8, Total Bilirubin 0.40, AST 31, ALT 42, Alkaline Phosphatase 66, Total Protein 7.5, Albumin 2.8 L, Globulin 4.7 H, Albumin/Globulin Ratio 0.6 L 10/13/20 03:55: Troponin I 0.132 H Current Medications Acetaminophen (Acetaminophen 325 Mg Tablet) 650 mg PO Q6H PRN PRN PRN Reason: Pain Score 1-10/Temp > 100.7 F Albuterol Sulfate (Albuterol Ih 8.5 Gm (Proair) Inhaler (200 Puffs)) 2 puff INHALATION Q2H PRN PRN PRN Reason: sob/wheezing Last Admin: 10/13/20 05:35 Dose: 2 puff Documented by: Benzonatate (Benzonatate 100 Mg Capsule) 100 mg PO 4X/DAY PRN PRN PRN Reason: COUGH Last Admin: 10/13/20 05:35 Dose: 100 mg Documented by: Dexamethasone (Dexamethasone 4 Mg Tablet) 6 mg PO DAILY [facility] Enoxaparin Sodium (Enoxaparin 30 Mg/0.3 Ml Syringe) 30 mg SC BID SELINA Last Admin: 10/13/20 11:21 Dose: 30 mg Documented by: Guaifenesin (Guaifenesin 1,200 Mg Tablet) 1,200 mg PO BID [facility] Remdesivir 100 mg/ Sodium (Chloride) 250 mls @ 125 mls/hr IV DAILY@2200 [facility] Stop: 10/16/20 23:59 Sodium Chloride () 250 mls @ 15 mls/hr IV .[id number] PRN PRN Reason: Saline Flush Sodium Chloride () 250 mls @ 15 mls/hr IV .[id number] PRN PRN Reason: Additional IVPB Infusion Melatonin (Melatonin 3 Mg Tablet) 3 mg PO QHS PRN PRN PRN Reason: INSOMNIA Ondansetron HCl (Ondansetron 4 Mg/2 Ml Vial) 4 mg IV Q8H PRN PRN PRN Reason: NAUSEA/VOMITING Sodium Chloride (0.9% Saline Lock 10 Ml Syringe) 10 - 40 ml IV UD PRN PRN Reason: SALINE FLUSH Last Admin: 10/13/20 04:12 Dose: 30 ml Documented by: Medical Necessity - Tobacco Use Smoking Status: Smoker, status unknown Assessment/Plan All Active Problems COVID-19 (Acute) Pneumonia (Acute) Severe acute respiratory syndrome (Acute) 1. Acute COVID 19 pneumonia on dexa and rem-d symptoms began around 10/02 start apixaban 2.5 BID given high D-dimer 2. acute hypoxic respiratory failure 2/2 COVID 19 pneumonia/ALI wean oxygen as tolerated diuretic challenge 3. VTE proph: apixaban 4. Blast on eugenio smear monitor outside of crisis, likely will be outpt follow up with oncology. Inpatient E&M: [id number] Subs Hosp L2
[2020-10-13] MEDS: dexAMETHasone 4 MG Tablet 6 MG PO (14:39)
[2020-10-13] MEDS: guaiFENesin 1,200 MG Tablet 1200 MG PO ×2 (14:39→21:06)
[2020-10-13] MEDS: APIXABAN 2.5 MG TABLET PO (21:06)
[2020-10-14 03:00] VITALS: BP 130/83; PULSE 53; RESP 18; TEMP 36.6; O2SAT 96
[2020-10-14 05:01] VITALS: BP 157/79; PULSE 70; RESP 20; TEMP 36.7; O2SAT 93
[2020-10-14] MEDS: Benzonatate 100 MG Capsule PO (05:12)
[2020-10-14 06:33] LABS: Hematocrit 33.6 % (40-54); Hemoglobin 10.4 g/dL (13.0-16.5); Mean Corpuscular Hgb 31.2 pg (27.0-32.0); Mean Corpuscular Volume 100.9 fL (80-94); Mean Platelet Vol. 9.9 fl (6.2-12.0); POSITIVE COUNT YES; POSITIVE MORPHOLOGY YES; Platelet Count 316 K/mm3 (150-450); RBC Distribution Width CV 13.5 % (11.6-14.6); RBC Distribution Width SD 50.6 fl (35.1-43.9); Red Blood Count 3.33 M/mm3 (4.6-6.2); White Blood Count 7.1 K/mm3 (4.4-11.0)
[2020-10-14 06:46] LABS: Differential Indicated MANUAL DIFF
[2020-10-14 07:21] LABS: Eosinophil 1 % (0-5); Lymphocyte 16 % (19-41); Metamyelocyte 7 % (0-1); Monocyte 14 % (0-10); Neutrophil-Band 9 % (0-5); Neutrophil-Segmented 53 % (47-70); Total Cells Counted 100 (MANUAL DIFF)
[2020-10-14 07:23] LABS: Absolute Lymphocyte Count 1.14 X10^3/uL (0.83-4.51); Absolute Neutrophil Count 4.4 X10^3/uL (2.0-7.7); Lymphocyte # 1.14 X10^3/ul (4.0); Macrocytosis 1+; Platelet Estimate ADEQUATE (ADEQ)
[2020-10-14 07:27] LABS: ALB/GLOB Ratio 0.6 RATIO (0.9-2.4); AST(SGOT) 32 U/L (15-37); Alanine Aminotransfer ALT/SGPT 40 U/L (16-61); Albumin, Serum 2.8 g/dL (3.2-5.0); Alkaline Phosphatase 62 U/L (45-117); Anion Gap 4 (5-15); BUN 27 mg/dL (7-18); BUN/Creat Ratio 21.4 RATIO (10-20); Calcium,Total 8.8 mg/dL (8.5-10.1); Chloride 102 mmol/L (98-107); Creatinine, Serum 1.26 mg/dL (0.70-1.30); EST Glomerular Filtration Rate 59 mL/min (>60); Est Glom Filt Rate - Afr Amer 71 mL/min (>60); Estimated Creatinine Clearance 50.69 ml/min; Globulin 4.4 g/dL (2.2-4.2); Glucose 97 mg/dL (74-106); Potassium 4.5 mmol/L (3.5-5.1); Protein, Total 7.2 g/dL (6.4-8.2); Sodium Level 136 mmol/L (136-145)
[2020-10-14 08:18] VITALS: BP 169/75; PULSE 57; RESP 18; TEMP 36.8; O2SAT 93
[2020-10-14] MEDS: APIXABAN 2.5 MG TABLET PO ×2 (08:34→20:43)
[2020-10-14] MEDS: dexAMETHasone 4 MG Tablet 6 MG PO (08:34)
[2020-10-14] MEDS: guaiFENesin 1,200 MG Tablet 1200 MG PO ×2 (08:34→20:43)
[2020-10-14 11:08] VITALS: O2SAT 93
--- NOTE | 2020-10-14 13:55 | PN_ITS ---
Patient Problems: Active and Suspected Problems COVID-19 (Acute) Pneumonia (Acute) Severe acute respiratory syndrome (Acute) Reason for Visit: COVID 19 Subjective: breathing well. Vitals/I&O's: Vital Signs Temp Pulse Resp BP Pulse Ox 36.8 C 57 L 18 169/75 H 93 10/14/20 08:18 10/14/20 08:18 10/14/20 08:18 10/14/20 08:18 10/14/20 11:08 Oxygen Flow Rate (L/min) 4 Oxygen Delivery Method Nasal Cannula Weight: 119 kg Body Mass Index (BMI) 37.6 Finger Stick Blood Glucose 108 Intake and Output for Last 24 Hours 10/12/20 10/13/20 10/14/20 23:59 23:59 23:59 Intake Total 890 / 890 1200 / 1200 Output Total 700 / 700 Balance 190 / 190 1200 / 1200 General: Alert, No apparent distress, - - diaphoretic HEENT: Atraumatic, Normocephalic Oral: Moist Mucosa, No Gingival or Mucosal Lesions/ Ulcerations Neck: No Nodes, Thyroid Normal Size and Texture Lungs: Clear to auscultation, Normal air movement, No rhonchi, No wheeze Cardiovascular: Regular rate, Regular Rhythm, Normal S1, Normal S2, No murmurs Abdomen: Bowel Sounds Present, Soft, Non Tender, Non-Distended Extremities: No edema, No Calf Tenderness Skin: No rashes, No breakdown Musculoskeletal: No Tenderness to Palpation of Joints or Extremities, No Muscle Wasting Psych/Mental Status: Normal Affect, Appropriate Laboratory Results 10/14/20 06:17: WBC 7.1, RBC 3.33 L, Hgb 10.4 L, Hct 33.6 L, MCV 100.9 H, MCH 31.2, MCHC 31.0 L, RDW Std Deviation 50.6 H, RDW Coeff of Alonso 13.5, Plt Count 316, MPV 9.9, Neut % (Auto) Not Reportable, Absolute Neuts (auto) 4.4, Absolute Lymphs (auto) 1.14, Total Counted 100, Neutrophils % (Manual) 53, Band Neutrophils % 9 H, Lymphocytes % (Manual) 16 L, Monocytes % (Manual) 14 H, Eosinophils % (Manual) 1, Metamyelocytes % 7 H, Platelet Estimate ADEQUATE, Macrocytosis 1+ 10/14/20 06:17: Sodium 136, Potassium 4.5, Chloride 102, Carbon Dioxide 30.0, Anion Gap 4 L, BUN 27 H, Creatinine 1.26, Estim Creat Clear Calc 50.69, Est GFR (MDRD) Af Amer 71, Est GFR (MDRD) Non-Af 59 L, BUN/Creatinine Ratio 21.4 H, Glucose 97, Calcium 8.8, Total Bilirubin 0.50, AST 32, ALT 40, Alkaline Phosphatase 62, Total Protein 7.2, Albumin 2.8 L, Globulin 4.4 H, Albumin/Globulin Ratio 0.6 L Current Medications Acetaminophen (Acetaminophen 325 Mg Tablet) 650 mg PO Q6H PRN PRN PRN Reason: Pain Score 1-10/Temp > 100.7 F Albuterol Sulfate (Albuterol Ih 8.5 Gm (Proair) Inhaler (200 Puffs)) 2 puff INHALATION Q2H PRN PRN PRN Reason: sob/wheezing Last Admin: 10/14/20 05:13 Dose: 2 puff Documented by: Apixaban (Apixaban 2.5 Mg Tablet) 2.5 mg PO BID REPLACED BY [facility] Last Admin: 10/14/20 08:34 Dose: 2.5 mg Documented by: Benzonatate (Benzonatate 100 Mg Capsule) 100 mg PO 4X/DAY PRN PRN PRN Reason: COUGH Last Admin: 10/14/20 05:12 Dose: 100 mg Documented by: Dexamethasone (Dexamethasone 4 Mg Tablet) 6 mg PO DAILY REPLACED BY [facility] Last Admin: 10/14/20 08:34 Dose: 6 mg Documented by: Guaifenesin (Guaifenesin 1,200 Mg Tablet) 1,200 mg PO BID REPLACED BY [facility] Last Admin: 10/14/20 08:34 Dose: 1,200 mg Documented by: Remdesivir 100 mg/ Sodium (Chloride) 250 mls @ 125 mls/hr IV DAILY@2200 REPLACED BY [facility] Stop: 10/16/20 23:59 Last Infusion: 10/13/20 23:10 Dose: Infused Documented by: Sodium Chloride () 250 mls @ 15 mls/hr IV .[id number] PRN PRN Reason: Saline Flush Sodium Chloride () 250 mls @ 15 mls/hr IV .[id number] PRN PRN Reason: Additional IVPB Infusion Melatonin (Melatonin 3 Mg Tablet) 3 mg PO QHS PRN PRN PRN Reason: INSOMNIA Ondansetron HCl (Ondansetron 4 Mg/2 Ml Vial) 4 mg IV Q8H PRN PRN PRN Reason: NAUSEA/VOMITING Sodium Chloride (0.9% Saline Lock 10 Ml Syringe) 10 - 40 ml IV UD PRN PRN Reason: SALINE FLUSH Last Admin: 10/13/20 04:12 Dose: 30 ml Documented by: STROKE Vital Signs/Narrative: Vital Signs Pulse Ox 10/14/20 11:08 93 Medical Necessity - Tobacco Use Smoking Status: Smoker, status unknown Assessment/Plan All Active Problems COVID-19 (Acute) Pneumonia (Acute) Severe acute respiratory syndrome (Acute) 1. Acute COVID 19 pneumonia * on dexa and rem-d * symptoms began around 10/02, so he will need to quarantine through 10/23 * start apixaban 2.5 BID given high D-dimer 2. acute hypoxic respiratory failure * 2/2 COVID 19 pneumonia/ALI * wean oxygen as tolerated * diuretic challenge 3. VTE proph: apixaban 4. Blast on eugenio smear * monitor * outside of crisis, likely will be outpt follow up with oncology. 5. Disposition: home, likely with oxygen, in next 24-72h depending on his recovery. Today he is diaphoretic, but stable. given his advanced age he certainly needs at least another day in the hospital. Inpatient E&M: [id number] Subs Hosp L2
[2020-10-14 15:35] VITALS: BP 150/77; PULSE 61; RESP 18; TEMP 36.9; O2SAT 93
[2020-10-14 20:50] VITALS: BP 140/75; PULSE 62; RESP 18; TEMP 37; O2SAT 93
[2020-10-15 02:50] VITALS: BP 142/89; PULSE 53; RESP 18; TEMP 36.5; O2SAT 98
[2020-10-15 06:40] VITALS: BP 150/74; PULSE 76; RESP 18; TEMP 36.8; O2SAT 95
[2020-10-15 06:59] LABS: ALB/GLOB Ratio 0.7 RATIO (0.9-2.4); AST(SGOT) 27 U/L (15-37); Alanine Aminotransfer ALT/SGPT 39 U/L (16-61); Alkaline Phosphatase 65 U/L (45-117); Anion Gap 7 (5-15); BUN 30 mg/dL (7-18); BUN/Creat Ratio 23.4 RATIO (10-20); Calcium,Total 8.9 mg/dL (8.5-10.1); Chloride 101 mmol/L (98-107); Creatinine, Serum 1.28 mg/dL (0.70-1.30); EST Glomerular Filtration Rate 58 mL/min (>60); Est Glom Filt Rate - Afr Amer 70 mL/min (>60); Globulin 4.1 g/dL (2.2-4.2); Glucose 109 mg/dL (74-106); Potassium 4.5 mmol/L (3.5-5.1); Protein, Total 7.1 g/dL (6.4-8.2); Sodium Level 137 mmol/L (136-145)
[2020-10-15 08:24] VITALS: O2SAT 94
[2020-10-15] MEDS: APIXABAN 2.5 MG TABLET PO ×2 (08:36→20:54)
[2020-10-15] MEDS: dexAMETHasone 4 MG Tablet 6 MG PO (08:36)
[2020-10-15 08:40] VITALS: BP 159/79; PULSE 65; RESP 18; TEMP 36.7; O2SAT 93
--- NOTE | 2020-10-15 10:05 | CASEMGMT ---
RN CLARISSA called patient in room for initial transition planning/care coordination assessment. RN CLARISSA introduced self and role at [facility]. Patient is alert and oriented. Patient willing to participate in assessment and is able to answer all questions appropriately. Care providers, pharmacy, and demographics verified. Patient wishes to discharge home, denies need for home health at this time. Patient states he has no further needs or concerns at this time. CM to follow for discharge planning needs that may arise. PCP: Esther Specialists: none Preferred Pharmacy: [facility] Insurance: [facility] Prescription Benefit: none Living Will/HPOA: none LNOK: , son Living Arrangements: Patient lives with son and in a single story home with no steps to enter. Patient states he is independent at home. Transportation: [employer] DME/HHC: Patient states he has cane, walker, wheelchair, grab bars, and nebulizer at home. Patient has battery for nebulizer. Patient denies previous HHC. No preference for DME. Disposition Plan: Patient to discharge home with family support and follow-up plans in place. Sydney CHARLES, RN, CM
[2020-10-15] MEDS: guaiFENesin 1,200 MG Tablet 1200 MG PO ×2 (10:33→20:53)
[2020-10-15 13:11] LABS: Pathologist Review Reviewed
[2020-10-15 13:11] LABS: Pathologist Review Reviewed
[2020-10-15 13:27] LABS: Pathologist Review Reviewed
[2020-10-15 14:40] VITALS: BP 135/84; PULSE 58; RESP 18; TEMP 36.8; O2SAT 95
--- NOTE | 2020-10-15 15:18 | PCM.PN.HOSP ---
Patient Problems: Active and Suspected Problems COVID-19 (Acute) Pneumonia (Acute) Severe acute respiratory syndrome (Acute) Subjective: Patient seen and examined. He had no complaints and felt well. He was on 4 L of oxygen. Review systems otherwise negative. He has otherwise remained hemodynamically stable. Vitals/I&O's: Vital Signs Temp Pulse Resp BP Pulse Ox 98.1 F 65 18 159/79 H 93 10/15/20 08:40 10/15/20 08:40 10/15/20 08:40 10/15/20 08:40 10/15/20 08:40 Oxygen Flow Rate (L/min) 4 Oxygen Delivery Method Nasal Cannula Weight: 262 lb 5.601 oz Body Mass Index (BMI) 37.6 Finger Stick Blood Glucose 108 Intake and Output for Last 24 Hours 10/13/20 10/14/20 10/15/20 23:59 23:59 23:59 Intake Total 890 / 890 1930 / 2430 1040 / 1040 Output Total 700 / 700 Balance 190 / 190 1930 / 2430 1040 / 1040 General: Alert, Oriented x3, Cooperative HEENT: Atraumatic, PERRLA, EOMI, Normocephalic Oral: Dry Mucosa Neck: Supple, No JVD, Negative Carotid Bruits Lungs: Clear to auscultation, Normal air movement, No rhonchi, No wheeze, No rales, - - on 4L of oxygen by nasal canula Cardiovascular: Regular rate, Regular Rhythm, Normal S1, Normal S2, No murmurs Abdomen: Bowel Sounds Present, Soft, Non Tender, Non-Distended, No Hepato-splenomegaly Extremities: No clubbing, No cyanosis, No edema, Capillary Refill Less than 3 Seconds Skin: No rashes, No breakdown Musculoskeletal: No Tenderness to Palpation of Joints or Extremities Lymphatic: No Cervical, Supraclavicular, or Inguinal Adenopathy Neurological: Cranial nerves II-XII grossly intact, Neuro grossly intact, Motor Exam 5/5 strength throughout Psych/Mental Status: Normal Affect, Appropriate, Alert and oriented to time, place, person, mood and affect Microbiology Past 72 Hours 10/12/20 19:04 Blood Culture (Wb) - Left Hand Blood Culture - Preliminary No growth in 48 hours. 10/12/20 19:00 Blood Culture (Wb) - Anticubital Left Blood Culture - Preliminary No growth in 48 hours. Laboratory Results 10/12/20 19:00: Diff Path Review Reviewed 10/13/20 03:55: Diff Path Review Reviewed 10/14/20 06:17: Diff Path Review Reviewed 10/15/20 05:45: Sodium 137, Potassium 4.5, Chloride 101, Carbon Dioxide 29.0, Anion Gap 7, BUN 30 H, Creatinine 1.28, Estim Creat Clear Calc 49.90, Est GFR (MDRD) Af Amer 70, Est GFR (MDRD) Non-Af 58 L, BUN/Creatinine Ratio 23.4 H, Glucose 109 H, Calcium 8.9, Total Bilirubin 0.40, AST 27, ALT 39, Alkaline Phosphatase 65, Total Protein 7.1, Albumin 3.0 L, Globulin 4.1, Albumin/Globulin Ratio 0.7 L Diagnostic Data Chest X-Ray 10/12/20 19:43 IMPRESSION: Findings consistent with Covid 19 pneumonia. Clinical correlation recommended Electronically Signed: Travis Young MD at 20:11 EST , Service support , Chest CTA 10/12/20 21:15 IMPRESSION: No pulmonary embolism, aortic aneurysm, or aortic dissection. Multifocal bilateral peripheral groundglass airspace opacity consistent with pneumonia. In the setting of a global pandemic of Covid 19, this is consistent with Covid 19 pneumonia. Individualized dose optimization techniques were used for this CT. at 2223 Reported and signed by: Chris Holm MD Electronically Signed: Chris Holm MD at 22:21 EST Tel , Service support , Current Medications Acetaminophen (Acetaminophen 325 Mg Tablet) 650 mg PO Q6H PRN PRN PRN Reason: Pain Score 1-10/Temp > 100.7 F Albuterol Sulfate (Albuterol Ih 8.5 Gm (Proair) Inhaler (200 Puffs)) 2 puff INHALATION Q2H PRN PRN PRN Reason: sob/wheezing Last Admin: 10/14/20 20:42 Dose: 2 puff Documented by: Apixaban (Apixaban 2.5 Mg Tablet) 2.5 mg PO BID [facility] Last Admin: 10/15/20 08:36 Dose: 2.5 mg Documented by: Benzonatate (Benzonatate 100 Mg Capsule) 100 mg PO 4X/DAY PRN PRN PRN Reason: COUGH Last Admin: 10/14/20 05:12 Dose: 100 mg Documented by: Dexamethasone (Dexamethasone 4 Mg Tablet) 6 mg PO DAILY [facility] Last Admin: 10/15/20 08:36 Dose: 6 mg Documented by: Guaifenesin (Guaifenesin 1,200 Mg Tablet) 1,200 mg PO BID [facility] Last Admin: 10/15/20 10:33 Dose: 1,200 mg Documented by: Remdesivir 100 mg/ Sodium (Chloride) 250 mls @ 125 mls/hr IV DAILY@2200 [facility] Stop: 10/16/20 23:59 Last Infusion: 10/14/20 22:50 Dose: Infused Documented by: Sodium Chloride () 250 mls @ 15 mls/hr IV .[id number] PRN PRN Reason: Saline Flush Sodium Chloride () 250 mls @ 15 mls/hr IV .[id number] PRN PRN Reason: Additional IVPB Infusion Melatonin (Melatonin 3 Mg Tablet) 3 mg PO QHS PRN PRN PRN Reason: INSOMNIA Ondansetron HCl (Ondansetron 4 Mg/2 Ml Vial) 4 mg IV Q8H PRN PRN PRN Reason: NAUSEA/VOMITING Sodium Chloride (0.9% Saline Lock 10 Ml Syringe) 10 - 40 ml IV UD PRN PRN Reason: SALINE FLUSH Last Admin: 10/13/20 04:12 Dose: 30 ml Documented by: Medical Necessity - Tobacco Use Smoking Status: Smoker, status unknown Assessment/Plan All Active Problems COVID-19 (Acute) Pneumonia (Acute) Severe acute respiratory syndrome (Acute) #Acute hypoxic respiratory failure due to COVID Dexamethasone and remdesivir Breathing treatment with bronchodilators. On Eliquis 2.5 mg twice daily. #COVID-19 infection: As above #Blast cells; seen on peripheral smear. Had 1 % blast cells per CBC. To follow up with oncology on outpatient basis. DVT prophylaxis: on eliquis Inpatient E&M: [id number] [facility] Hosp L2
[2020-10-15] MEDS: 0.9% Saline Lock 10 ML Syringe IV (20:54)
[2020-10-15 20:58] VITALS: BP 135/62; PULSE 58; RESP 22; TEMP 36.7; O2SAT 97
[2020-10-16 03:05] VITALS: BP 124/68; PULSE 54; RESP 20; TEMP 36.9; O2SAT 95
[2020-10-16 06:35] LABS: Hematocrit 34.2 % (40-54); Hemoglobin 10.6 g/dL (13.0-16.5); Mean Corpuscular Hgb 31.6 pg (27.0-32.0); Mean Corpuscular Volume 102.1 fL (80-94); Mean Platelet Vol. 9.7 fl (6.2-12.0); POSITIVE COUNT YES; POSITIVE MORPHOLOGY YES; Platelet Count 325 K/mm3 (150-450); RBC Distribution Width CV 13.2 % (11.6-14.6); RBC Distribution Width SD 49.7 fl (35.1-43.9); Red Blood Count 3.35 M/mm3 (4.6-6.2); White Blood Count 8.2 K/mm3 (4.4-11.0)
[2020-10-16 06:40] LABS: Differential Indicated MANUAL DIFF
[2020-10-16 06:59] LABS: Absolute Lymphocyte Count 0.74 X10^3/uL (0.83-4.51); Absolute Neutrophil Count 6.3 X10^3/uL (2.0-7.7); Lymphocyte 9 % (19-41); Metamyelocyte 5 % (0-1); Monocyte 9 % (0-10); Neutrophil-Band 2 % (0-5); Neutrophil-Segmented 75 % (47-70); Total Cells Counted 100 (MANUAL DIFF)
[2020-10-16 07:00] LABS: Platelet Estimate ADEQUATE (ADEQ); Red Cell Morphology NORM C+C NORMAL (NORM C&C)
[2020-10-16 07:06] LABS: ALB/GLOB Ratio 0.7 RATIO (0.9-2.4); AST(SGOT) 39 U/L (15-37); Alanine Aminotransfer ALT/SGPT 51 U/L (16-61); Albumin, Serum 2.9 g/dL (3.2-5.0); Alkaline Phosphatase 61 U/L (45-117); Anion Gap 5 (5-15); BUN 32 mg/dL (7-18); BUN/Creat Ratio 26.7 RATIO (10-20); Calcium,Total 8.7 mg/dL (8.5-10.1); Chloride 101 mmol/L (98-107); EST Glomerular Filtration Rate 62 mL/min (>60); Est Glom Filt Rate - Afr Amer 75 mL/min (>60); Estimated Creatinine Clearance 53.23 ml/min; Globulin 4.3 g/dL (2.2-4.2); Glucose 107 mg/dL (74-106); Potassium 4.1 mmol/L (3.5-5.1); Protein, Total 7.2 g/dL (6.4-8.2); Sodium Level 136 mmol/L (136-145)
[2020-10-16 07:57] VITALS: O2SAT 94
[2020-10-16 09:05] VITALS: BP 131/59; PULSE 68; RESP 18; TEMP 36.9; O2SAT 95
[2020-10-16] MEDS: dexAMETHasone 4 MG Tablet 6 MG PO (09:21)
[2020-10-16] MEDS: APIXABAN 2.5 MG TABLET PO ×2 (09:21→21:42)
[2020-10-16] MEDS: guaiFENesin 1,200 MG Tablet 1200 MG PO ×2 (09:21→21:42)
--- NOTE | 2020-10-16 11:33 | PN_ITS ---
Patient Problems: Active and Suspected Problems COVID-19 (Acute) Pneumonia (Acute) Severe acute respiratory syndrome (Acute) Subjective: Patient seen and examined. He has no complaints today. he is on 3L of oxygen. He is coughing some more and says he is expectorating more. Review of symptoms otherwise negative. Vitals/I&O's: Vital Signs Temp Pulse Resp BP Pulse Ox 98.4 F 68 18 131/59 H 95 10/16/20 09:05 10/16/20 09:05 10/16/20 09:05 10/16/20 09:05 10/16/20 09:05 Oxygen Flow Rate (L/min) 2 Oxygen Delivery Method Nasal Cannula Weight: 262 lb 5.601 oz Body Mass Index (BMI) 37.6 Finger Stick Blood Glucose 108 Intake and Output for Last 24 Hours 10/14/20 10/15/20 10/16/20 23:59 23:59 23:59 Intake Total 1929 / 2449 560 / 560 Balance 1929 560 / 560 General: Alert, Oriented x3, Cooperative HEENT: Atraumatic, PERRLA, EOMI, Normocephalic Oral: Dry Mucosa Neck: Supple, No JVD, Negative Carotid Bruits Lungs: Clear to auscultation, Normal air movement, No rhonchi, No wheeze, No rales, - - on 3L of oxygen by nasal canula Cardiovascular: Regular rate, Regular Rhythm, Normal S1, Normal S2, No murmurs Abdomen: Bowel Sounds Present, Soft, Non Tender, Non-Distended, No Hepato- splenomegaly Extremities: No clubbing, No cyanosis, No edema, Capillary Refill Less than 3 Seconds Skin: No rashes, No breakdown Musculoskeletal: No Tenderness to Palpation of Joints or Extremities Lymphatic: No Cervical, Supraclavicular, or Inguinal Adenopathy Neurological: Cranial nerves II-XII grossly intact, Neuro grossly intact, Motor Exam 5/5 strength throughout Psych/Mental Status: Normal Affect, Appropriate, Alert and oriented to time, place, person, mood and affect Microbiology Past 72 Hours 10/12/20 19:04 Blood Culture (Wb) - Left Hand Blood Culture - Preliminary No growth in 48 hours. 10/12/20 19:00 Blood Culture (Wb) - Anticubital Left Blood Culture - Preliminary No growth in 48 hours. Laboratory Results 10/12/20 19:00: Diff Path Review Reviewed 10/13/20 03:55: Diff Path Review Reviewed 10/14/20 06:17: Diff Path Review Reviewed 10/16/20 06:28: WBC 8.2, RBC 3.35 L, Hgb 10.6 L, Hct 34.2 L, MCV 102.1 H, MCH 31.6, MCHC 31.0 L, RDW Std Deviation 49.7 H, RDW Coeff of Alonso 13.2, Plt Count 325, MPV 9.7, Neut % (Auto) Not Reportable, Absolute Neuts (auto) 6.3, Absolute Lymphs (auto) 0.74 L, Total Counted 100, Neutrophils % (Manual) 75 H, Band Neutrophils % 2, Lymphocytes % (Manual) 9 L, Monocytes % (Manual) 9, Metamyelocytes % 5 H, Diff Path Review May foll, Platelet Estimate ADEQUATE, RBC Morphology NORM C+C 10/16/20 06:28: Sodium 136, Potassium 4.1, Chloride 101, Carbon Dioxide 30.0, Anion Gap 5, BUN 32 H, Creatinine 1.20, Estim Creat Clear Calc 53.23, Est GFR (MDRD) Af Amer 75, Est GFR (MDRD) Non-Af 62, BUN/Creatinine Ratio 26.7 H, Glucose 107 H, Calcium 8.7, Total Bilirubin 0.40, AST 39 H, ALT 51, Alkaline Phosphatase 61, Total Protein 7.2, Albumin 2.9 L, Globulin 4.3 H, Albumin/Globulin Ratio 0.7 L Current Medications Acetaminophen (Acetaminophen 325 Mg Tablet) 650 mg PO Q6H PRN PRN PRN Reason: Pain Score 1-10/Temp > 100.7 F Albuterol Sulfate (Albuterol Ih 8.5 Gm (Proair) Inhaler (200 Puffs)) 2 puff INHALATION Q2H PRN PRN PRN Reason: sob/wheezing Last Admin: 10/14/20 20:42 Dose: 2 puff Documented by: Apixaban (Apixaban 2.5 Mg Tablet) 2.5 mg PO BID [facility] Last Admin: 10/16/20 09:21 Dose: 2.5 mg Documented by: Benzonatate (Benzonatate 100 Mg Capsule) 100 mg PO 4X/DAY PRN PRN PRN Reason: COUGH Last Admin: 10/14/20 05:12 Dose: 100 mg Documented by: Dexamethasone (Dexamethasone 4 Mg Tablet) 6 mg PO DAILY [facility] Last Admin: 10/16/20 09:21 Dose: 6 mg Documented by: Guaifenesin (Guaifenesin 1,200 Mg Tablet) 1,200 mg PO BID [facility] Last Admin: 10/16/20 09:21 Dose: 1,200 mg Documented by: Remdesivir 100 mg/ Sodium (Chloride) 250 mls @ 125 mls/hr IV DAILY@2200 [facility] Stop: 10/16/20 23:59 Last Infusion: 10/15/20 23:09 Dose: Infused Documented by: Sodium Chloride () 250 mls @ 15 mls/hr IV .[id number] PRN PRN Reason: Saline Flush Sodium Chloride () 250 mls @ 15 mls/hr IV .[id number] PRN PRN Reason: Additional IVPB Infusion Melatonin (Melatonin 3 Mg Tablet) 3 mg PO QHS PRN PRN PRN Reason: INSOMNIA Ondansetron HCl (Ondansetron 4 Mg/2 Ml Vial) 4 mg IV Q8H PRN PRN PRN Reason: NAUSEA/VOMITING Sodium Chloride (0.9% Saline Lock 10 Ml Syringe) 10 - 40 ml IV UD PRN PRN Reason: SALINE FLUSH Last Admin: 10/15/20 20:54 Dose: 10 ml Documented by: STROKE Vital Signs/Narrative: Vital Signs Temp Pulse Resp BP Pulse Ox 10/16/20 09:05 98.4 F 68 18 131/59 H 95 10/16/20 07:57 94 Medical Necessity - Tobacco Use Smoking Status: Smoker, status unknown Assessment/Plan All Active Problems COVID-19 (Acute) Pneumonia (Acute) Severe acute respiratory syndrome (Acute) #Acute hypoxic respiratory failure due to COVID * Dexamethasone and remdesivir * Breathing treatment with bronchodilators. * On Eliquis 2.5 mg twice daily. * now on 3L of oxygen. continue titrating oxygen, to maintain sats >90% #COVID-19 infection: As above #Blast cells; seen on peripheral smear. Had 1 % blast cells per CBC. To follow up with oncology on outpatient basis. DVT prophylaxis: on eliquis Disposition: for likely dc home tomorrow. Will most likely need oxygen upon discharge, and will have a walking pulse ox to determine if he meets the requirement. Inpatient E&M: [id number] Subs Hosp L2
[2020-10-16 13:04] LABS: Pathologist Review Reviewed
[2020-10-16 14:58] VITALS: BP 133/80; PULSE 60; RESP 20; TEMP 36.9; O2SAT 94
[2020-10-16 20:25] VITALS: BP 110/70; PULSE 65; RESP 18; TEMP 36.8; O2SAT 93
[2020-10-16] MEDS: 0.9% Saline Lock 10 ML Syringe IV (21:42)
[2020-10-16 21:47] VITALS: BP 134/74; PULSE 57; RESP 18; TEMP 36.7; O2SAT 98
[2020-10-17 01:21] VITALS: BP 143/83; PULSE 56; RESP 18; TEMP 36.7; O2SAT 96
[2020-10-17 06:15] VITALS: BP 138/70; PULSE 53; RESP 16; TEMP 36.7; O2SAT 94
[2020-10-17 09:36] VITALS: BP 122/70; PULSE 64; RESP 18; TEMP 36.9; O2SAT 93
[2020-10-17] MEDS: APIXABAN 2.5 MG TABLET PO (09:42)
[2020-10-17] MEDS: dexAMETHasone 4 MG Tablet 6 MG PO (09:42)
[2020-10-17] MEDS: guaiFENesin 1,200 MG Tablet 1200 MG PO (09:43)
[2020-10-17 11:38] VITALS: O2SAT 84; O2SAT 89; O2SAT 92
--- NOTE | 2020-10-17 12:12 | DCINST_ITS ---
- Discharge Diagnoses Current Active Problems: Current Active and Chronic Problems Stroke (Chronic) Hypertension (Chronic) High cholesterol (Chronic) COVID-19 (Acute) Pneumonia (Acute) Severe acute respiratory syndrome (Acute) You will use the following diet at home:: Cardiac Your food should be the consistency of: Regular Your liquids should be the consistency of: Regular/Thin Discharge Activity: Return to Normal Activity Weight Bearing Status: Weight bearing as tolerated Call your doctor if you observe: Fever of 101 or Higher, Shortness of breath, Dizziness, Fainting spells, Swelling in the ankles, Increased palpitations (irregular heartbeat) Instructions: Coronavirus Disease 2019 (COVID-19): Caring for Yourself or Others, Coronavirus Disease 2019 (COVID-19): Overview Additional Instructions: use oxygen 3L as needed for shortness of breath. Allergies/Adverse Reactions: Allergies No Known Allergies Allergy (Verified 10/12/20 18:45) Medications to take at Discharge Aspirin [Aspirin, Baby] 81 mg PO DAILY@0800 #30 tab.chew 09/23/19 Atorvastatin Calcium 40 mg PO QHS #30 tab 09/23/19 Lisinopril [Zestril] 10 mg PO DAILY #30 tab 09/23/19 Apixaban [Eliquis] 2.5 mg PO BID #28 tab 10/17/20 Dexamethasone [Decadron] 6 mg PO DAILY #5 tab 10/17/20 The following prescriptions were given: Dexamethasone [Decadron] 6 mg PO DAILY #5 tab Transmission Status: Received by [facility] Apixaban [Eliquis] 2.5 mg PO BID #28 tab Transmission Status: Received by [facility] Primary Care Physician: Chris Santana DO [Primary Care Provider] - Please follow up with your Primary Care Physician in: 1-2 weeks Test Results: Test results from this visit will be discussed in further detail at your follow- up appointment, if applicable. Proposed Discharge Date: 10/17/20
--- NOTE | 2020-10-17 12:12 | DS.PCM_ITS ---
Discharge Date and Diagnosis - Problem List Patient Problems: Active and Suspected Problems COVID-19 (Acute) Pneumonia (Acute) Severe acute respiratory syndrome (Acute) Date of Admission: 10/12/20 Date of Discharge: 10/17/20 - Primary Discharge Diagnosis Acute Problems: Active Problems COVID-19 (Acute) Pneumonia (Acute) Severe acute respiratory syndrome (Acute) acute hypoxic respiratory failure - Secondary Discharge Diagnosis Chronic Problems: Chronic Problems Stroke (Chronic) Hypertension (Chronic) High cholesterol (Chronic) Hospital Course and Treatment Imaging Results: Diagnostic Data Chest X-Ray 10/12/20 19:43 IMPRESSION: Findings consistent with Covid 19 pneumonia. Clinical correlation recommended Electronically Signed: Travis Young MD at 20:11 EST , Service support , Chest CTA 10/12/20 21:15 IMPRESSION: No pulmonary embolism, aortic aneurysm, or aortic dissection. Multifocal bilateral peripheral groundglass airspace opacity consistent with pneumonia. In the setting of a global pandemic of Covid 19, this is consistent with Covid 19 pneumonia. Individualized dose optimization techniques were used for this CT. at 2223 Reported and signed by: Chris Holm MD Electronically Signed: Chris Holm MD at 22:21 EST Tel , Service support , Operations: None Procedures: None Summary of Care Provided: The patient is a 75 year old M with an extensive past medical history as outli beba was admitted through the ED on 10/12/2020 with a complaint of a cough and shortness of breath. Cough was persistent and mostly dry. He also had a fever but fever had resolved at time of admission. He also had assisted chills and diaphoresis. Review of systems otherwise negative. CT of the chest done was negative for PE but showed multifocal bilateral peripheral groundglass opacities consistent with pneumonia and checks x-ray was also consistent with. Covid PCR test was positive. He was requiring 6L of oxygen on admission. He was therefore admitted and managed for acute hypoxic respiratory failure due to COVID-19 infection. He was started on remdesivir and dexamethasone as well as breathing treatments. He completed a course of remdesivir. His oxygen requirements gradually increased until he was on just 1 L of oxygen. Patient felt well and remained stable. Blood cultures were negative after 48 hours. He was discharged home on 10/17/2020. Patient qualify for home oxygen as his oxygen saturation dropped to 84% with ambulation on room air and 89% at rest on room air he required 3 L of oxygen to up to 92% with ambulation. He was therefore discharged home on 3 L of oxygen to use with shortness of breath as needed. Was also discharged with a prescription for p.o. dexamethasone 6 mg daily for 5 days to complete a 10-day course. He is to follow-up with his primary care doctor in 1 to 2 weeks and is to remain in isolation for total of 3 weeks since diagnosis, 21 days after diagnosis on 10/12/2020, till November 02 2020. Patient seen and examined. He had no complaints and felt much better. Review of systems was otherwise negative. Labs and vitals reviewed. Home medication reviewed and reconciled. O/E: Vital Signs Temp Pulse Resp BP Pulse Ox 98.5 F 64 18 122/70 H 89 10/17/20 09:36 10/17/20 09:36 10/17/20 09:36 10/17/20 09:36 10/17/20 11:38 [] General: Alert, Oriented x3, Cooperative HEENT: Atraumatic, PERRLA, EOMI, Normocephalic Oral: Dry Mucosa Neck: Supple, No JVD, Negative Carotid Bruits Lungs: Clear to auscultation, Normal air movement, No rhonchi, No wheeze, No rales, - - on 1L of oxygen by nasal canula Cardiovascular: Regular rate, Regular Rhythm, Normal S1, Normal S2, No murmurs Abdomen: Bowel Sounds Present, Soft, Non Tender, Non-Distended, No Hepato- splenomegaly Extremities: No clubbing, No cyanosis, No edema, Capillary Refill Less than 3 Seconds Skin: No rashes, No breakdown Musculoskeletal: No Tenderness to Palpation of Joints or Extremities Lymphatic: No Cervical, Supraclavicular, or Inguinal Adenopathy Neurological: Cranial nerves II-XII grossly intact, Neuro grossly intact, Motor Exam 5/5 strength throughout Psych/Mental Status: Normal Affect, Appropriate, Alert and oriented to time, place, person, mood and affect Plan is for discharge home today. Patient Problems: Active and Suspected Problems COVID-19 (Acute) Pneumonia (Acute) Severe acute respiratory syndrome (Acute) - Physical Exam Vitals/I&O's: Vital Signs Temp Pulse Resp BP Pulse Ox 98.5 F 64 18 122/70 H 89 10/17/20 09:36 10/17/20 09:36 10/17/20 09:36 10/17/20 09:36 10/17/20 11:38 Oxygen Flow Rate (L/min) [ 3 AMBULATION with Oxygen] Oxygen Flow Rate (L/min) [ 0 AMBULATING on Room Air] Oxygen Flow Rate (L/min) [At 0 REST on Room Air] Oxygen Flow Rate (L/min) 1 Oxygen Delivery Method Nasal Cannula Weight: 262 lb 5.601 oz Body Mass Index (BMI) 37.6 Finger Stick Blood Glucose 108 Intake and Output for Last 24 Hours 10/15/20 10/16/20 10/17/20 23:59 23:59 23:59 Intake Total 2090 / 2450 1890 / 2490 1300 / 1300 Balance 2090 / 2450 1890 / 2490 1300 / 1300 Microbiology Past 72 Hours 10/12/20 19:04 Blood Culture (Wb) - Left Hand Blood Culture - Preliminary No growth in 48 hours. 10/12/20 19:00 Blood Culture (Wb) - Anticubital Left Blood Culture - Preliminary No growth in 48 hours. Laboratory Results 10/16/20 06:28: Diff Path Review Reviewed Current Medications Acetaminophen (Acetaminophen 325 Mg Tablet) 650 mg PO Q6H PRN PRN PRN Reason: Pain Score 1-10/Temp > 100.7 F Albuterol Sulfate (Albuterol Ih 8.5 Gm (Proair) Inhaler (200 Puffs)) 2 puff INHALATION Q2H PRN PRN PRN Reason: sob/wheezing Last Admin: 10/14/20 20:42 Dose: 2 puff Documented by: Apixaban (Apixaban 2.5 Mg Tablet) 2.5 mg PO BID SELINA Last Admin: 10/17/20 09:42 Dose: 2.5 mg Documented by: Benzonatate (Benzonatate 100 Mg Capsule) 100 mg PO 4X/DAY PRN PRN PRN Reason: COUGH Last Admin: 10/14/20 05:12 Dose: 100 mg Documented by: Dexamethasone (Dexamethasone 4 Mg Tablet) 6 mg PO DAILY [facility] Last Admin: 10/17/20 09:42 Dose: 6 mg Documented by: Guaifenesin (Guaifenesin 1,200 Mg Tablet) 1,200 mg PO BID [facility] Last Admin: 10/17/20 09:43 Dose: 1,200 mg Documented by: Sodium Chloride () 250 mls @ 15 mls/hr IV .[id number] PRN PRN Reason: Saline Flush Sodium Chloride () 250 mls @ 15 mls/hr IV .[id number] PRN PRN Reason: Additional IVPB Infusion Melatonin (Melatonin 3 Mg Tablet) 3 mg PO QHS PRN PRN PRN Reason: INSOMNIA Ondansetron HCl (Ondansetron 4 Mg/2 Ml Vial) 4 mg IV Q8H PRN PRN PRN Reason: NAUSEA/VOMITING Sodium Chloride (0.9% Saline Lock 10 Ml Syringe) 10 - 40 ml IV UD PRN PRN Reason: SALINE FLUSH Last Admin: 10/16/20 21:42 Dose: 20 ml Documented by: Discharge Diet: Low fat/ Low Cholesterol Discharge Activity: Return to Normal Activity Weight Bearing Status: Weight bearing as tolerated Home Medications: Medications to take at Discharge Aspirin [Aspirin, Baby] 81 mg PO DAILY@0800 #30 tab.chew 09/23/19 Atorvastatin Calcium 40 mg PO QHS #30 tab 09/23/19 Lisinopril [Zestril] 10 mg PO DAILY #30 tab 09/23/19 Apixaban [Eliquis] 2.5 mg PO BID #28 tab 10/17/20 Dexamethasone [Decadron] 6 mg PO DAILY #5 tab 10/17/20 Following Prescriptions Were Given to Patient: Dexamethasone [Decadron] 6 mg PO DAILY #5 tab Transmission Status: Received by [facility] Apixaban [Eliquis] 2.5 mg PO BID #28 tab Transmission Status: Received by [facility] Primary Care Physician: Chris Santana DO [Primary Care Provider] - Please follow up with your Primary Care Physician in: 1-2 weeks Patient Instructions: Coronavirus Disease 2019 (COVID-19): Overview, Coronavirus Disease 2019 (COVID-19): Caring for Yourself or Others Disposition: Home Minutes spent on discharge:: 40 Patient Condition:: Stable Medical Necessity - Tobacco Use Smoking Status: Smoker, status unknown Meaningful Use Info Meaningful Use Diagnoses (Choose all that apply): None applicable Inpatient E&M: 90332 Disch Hosp
--- NOTE | 2020-10-17 13:12 | CASEMGMT ---
Pt does qualify for 3liters home oxygen with exertion at this time. Pt had stated no preference for DME company and stated had battery generator. Referral faxed to [facility] and Megan at [facility] updated on referral/discharge as well as generator, voices understanding. Pt has been independent in room and states no further needs at this time. Soumya CEJA CM
--- NOTE | 2020-10-17 14:34 | PHA.DC.MC ---
Pharmacy Service has performed discharge medication reconciliation and counseling for this patient. 1. DEXAMETHASONE 6MG PO DAILY X 5 DAYS 2. APIXABAN 2.5MG PO BID X 14 DAYS The patient's discharge medication list was reviewed for discrepancies and discrepancies were resolved. Home Medications Aspirin [Aspirin, Baby] 81 mg PO DAILY@0800 #30 tab.chew 09/23/19 Atorvastatin Calcium 40 mg PO QHS #30 tab 09/23/19 Lisinopril [Zestril] 10 mg PO DAILY #30 tab 09/23/19 Apixaban [Eliquis] 2.5 mg PO BID #28 tab 10/17/20 Dexamethasone [Decadron] 6 mg PO DAILY #5 tab 10/17/20 The patient was counseled on the following discharge medications and changes in medications for homegoing were reviewed. The Reason for Use, instructions for use, and potential side effects were reviewed for all new medications. The patient's questions regarding all of their medications were answered. The patient was able to verbally demonstrate an understanding of their discharge medications. Patient counseled via telephone due to COVID precautions.
[2020-10-17 15:52] VITALS: BP 142/83; PULSE 64; RESP 16; TEMP 36.9; O2SAT 95
--- NOTE | 2020-10-18 15:41 | CASEMGMT ---
Addendum entered by Sydney Loera 10/19/20 09:39: Call back from pt at this time. Pt states 'pretty good' since discharge. Pt states got oxygen set up and has been using. Pt states no SOB or fever since home. Pt states does not have appt set up yet with Dr. Santana, but plans to make. Pt states he was taking mucinex in the hospital and plans to take at home as well. Pt voices no suggestions for WC at this time. Pt voices no further questions/concerns/needs at this time. Soumya CEJA CM Original Note: MARCIAL ROMO Discharge F/U Phone Call Discharge date: 10/17/2020 Call date: 10/18/2020 Call time: [id number] Attempted to reach pt without success at this time, message left for pt to call this MARCIAL ROMO back if/when able. Soumya CEJA CM Admission dx: SARS COVID
== END 2020-10-17 16:16 | disposition home or self-care (01) | DRG 177 ==
LOC: ED 22:38 → ICU 23:42 → PCU 10-15 07:21 → ICU 10-15 09:49
PROVIDERS: Admitting Provider Hospitalist; Emergency Provider Emergency Medicine; PCP Family Medicine; Visit Provider Student in an Organized Health Care Education/Training Program
DX: U07.1 COVID-19 (principal); J12.89 Other viral pneumonia; J96.01 Acute respiratory failure with hypoxia; I10 Essential (primary) hypertension; E78.00 Pure hypercholesterolemia, unspecified; Z79.82 Long term (current) use of aspirin; Z79.01 Long term (current) use of anticoagulants; Z79.899 Other long term (current) drug therapy; Z87.891 Personal history of nicotine dependence; Z86.73 Personal history of transient ischemic attack (TIA), and cerebral infarction without residual deficits; Z23 Encounter for immunization
CPT/HCPCS: 36415; 71045; 71275; 80053; 83605; 84145; 84484; 85025; 85379; 87040; 87635; 93005; 94640; 97802; 99285; J7050; Q9967; A4216; U0002

== ENCOUNTER 2025-02-05 17:10 | Inpatient (IN) | payer OTHER, SELFPAY ==
[2025-02-05] VITALS (22 sets, daily range): BP systolic 115–158; BP diastolic 80–111; PULSE 46–75; RESP 12–32; TEMP 36.4–36.8; O2SAT 65–100; BMI 42.6; BMI 44.4
--- NOTE | 2025-02-05 17:15 | EKG12_ITS ---
Test Reason : SOB Blood Pressure : */* mmHG Vent. Rate : 59 BPM Atrial Rate : 59 BPM P-R Int : 192 ms QRS Dur : 128 ms QT Int : 440 ms P-R-T Axes : 74 132 -17 degrees QTcB Int : 435 ms Sinus bradycardia with sinus arrhythmia Non-specific intra-ventricular conduction block Possible Lateral infarct (cited on or before 12-Oct-2020) Abnormal ECG Confirmed by PRISCA MENSAH MD ([id number]), visual effects editor MARK JOHNSON ([id number]) on 02/06/2025 9:15:12 AM Referred By: Confirmed By: PRISCA MENSAH MD
--- NOTE | 2025-02-05 17:17 | EDS_ITS ---
HPI History of Present Illness Chief Complaint: Shortness of Breath [facility] Medical History (Updated 02/05/25 @ 17:16 by Kita Vinson) COPD (chronic obstructive pulmonary disease) Home Medications ?Medication ?Instructions ?Recorded ?Last Taken ?Type lisinopril 10 mg tablet 10 mg PO DAILY #30 tabs 09/03 12/21 Unknown Rx Allergy/AdvReac Type Severity Reaction Status Date / Time No Known Allergies Allergy Verified 02/05/25 17:17 Social History Smoking Status: Never smoker EXAM Physical Exam Const Vital Signs: 02/05/25 17:10 02/05/25 17:15 02/05/25 17:19 Temperature 97.9 F 97.5 F L Temperature Source Axillary Axillary Pulse Rate 75 62 Respiratory Rate 32 H 32 H Respiratory Effort Respiratory Depth Respiratory Pattern Blood Pressure 158/111 H 145/90 H Blood Pressure Mean 126 108 Pulse Ox 65 65 Oxygen Delivery Method Room Air Room Air High Flow Oxygen Flow Rate (L/min) 10 Fraction of Inspired Oxygen (FIO2) 02/05/25 17:33 02/05/25 17:34 02/05/25 17:46 Temperature Temperature Source Pulse Rate 74 Respiratory Rate 18 Respiratory Effort Short of Breath Labored Accessory Muscle Use Respiratory Depth Shallow Respiratory Pattern Normal Tachypnea Blood Pressure Blood Pressure Mean Pulse Ox 100 Oxygen Delivery Method High Flow High Flow Oxygen Flow Rate (L/min) 6 10 Fraction of Inspired Oxygen (FIO2) 02/05/25 17:57 02/05/25 18:10 02/05/25 18:15 Temperature 97.7 F L 97.7 F L Temperature Source Temporal Temporal Pulse Rate 60 57 L 57 L Respiratory Rate 21 H 18 18 Respiratory Effort Respiratory Depth Respiratory Pattern Tachypnea Blood Pressure 138/88 H 138/88 H Blood Pressure Mean 104 104 Pulse Ox 95 97 97 Oxygen Delivery Method Bi-pap Bi-pap Oxygen Flow Rate (L/min) Fraction of Inspired Oxygen (FIO2) 40 40 40 02/05/25 18:20 02/05/25 18:30 02/05/25 19:00 Temperature 98.3 F Temperature Source Axillary Pulse Rate 56 L 57 L 53 L Respiratory Rate 19 H 19 H 16 Respiratory Effort Respiratory Depth Respiratory Pattern Normal Blood Pressure 154/90 H 158/98 H Blood Pressure Mean 108 118 Pulse Ox 95 92 98 Oxygen Delivery Method Bi-pap Oxygen Flow Rate (L/min) Fraction of Inspired Oxygen (FIO2) 35 40 MDM MDM MDM Narrative Medical decision making narrative: HISTORY OF PRESENT ILLNESS: Chief complaint: Shortness of breath 80-year-old male history of COPD presents with shortness of breath last 2 days. Notes a cough productive of white sputum. Denies chest pain. Denies leg swelling. The patient denies recent surgery in the last 4 weeks or immobilization in the last 3 days, denies previous diagnosis of DVT or PE, hemoptysis, unilateral leg swelling or malignancy with treatment the last 6 months or palliative. No estrogen use noted. Patient denies bleeding diathesis. Denies sick contacts. Denies fever. REVIEW OF SYSTEMS: Pertinent positives: Shortness of breath Pertinent negatives: Chest pain, leg swelling PHYSICAL EXAM: Nursing triage notes reviewed, Vital signs reviewed Constitutional: please see [facility] HENT: MMM Eyes: Pupils equal round and reactive to light, Extraocular muscles intact Neck: No stridor, no JVD, full neck ROM Lungs: Conversational dyspnea, diminished breath sounds throughout, and e slight wheezing noted in anterior lung jacome. Heart: Regular rate and rhythm, No murmurs, No rubs and No gallops, 2+ distal pulses (radial, femoral, posterior tibial) in all extremities Abdomen: Soft, there is no tenderness, rigidity, rebound or guarding, no obvious peritoneal signs, no palpable pulsatile abdominal masses, no auscultated abdominal bruit : No CVAT Extremities: No edema Neuro: No new focal neurological deficits, cranial nerves II through XII intact, 5/5 strength in all present extremities. Intact sensation to light touch in all present extremities, 2+ reflexes bilateral patella tendons. Skin: No rash or lesions noted MEDICAL DECISION MAKING: Chief Complaint: please see HPI External records reviewed: Reviewed prior imaging: Reviewed CTA of the chest from 2019 which showed no pulmonary embolism, aortic aneurysm or dissection Factors affecting care: COPD, hypertension, CVA, hyperlipidemia Social determinants of health: Denies tobacco use History obtained from others: Consults: Internal medicine [facility] Narrative: The patient was initially hypoxic with a initial oxygen saturation of 65, tachypneic with respirate of 32, otherwise afebrile. Lungs with diminished breath sounds and wheezing consistent with likely COPD exacerbation. His work of breathing was not particularly elevated. He did have some conversational dyspnea. Given hypoxia patient was initially placed on nonrebreather then transferred to a high flow nasal cannula. I considered the following differential diagnosis: COPD exacerbation, ACS, arrhythmia, anemia, electro disturbance, PE, pneumonia, COVID, RSV, flu. I obtained a broad lab and imaging workup including initially a CTA of the chest I initially assessed the patient with noninvasive ventilation, breathing treatments and steroids. ALL IMAGES (IF OBTAINED) HAVE BEEN PERSONALLY REVIEWED AND INTERPRETED BY MYSELF. EKG with sinus bradycardia rate 59, Qtc 435, right ax deviation, no STEMI VBG with acute respiratory acidosis with a pH of 7.247 and a CO2 of 66 consistent with CO2 retention and likely COPD exacerbation. After VBG we decided to switch the patient over to BiPAP given CO2 retention to aid in work of breathing and decreased respiratory acidosis. BMP without significant electrolyte abnormalities, however there was significant LINDA concerning for dehydration. Given GFR is less than 30 I did not pursue contrasted study at this time. Initial troponin elevated consistent with endorgan hypoperfusion from hypoxia and type II demand ischemia from acute kidney injury CBC with no leukocytosis, mild anemia, noted thrombocytopenia Chest x-ray was read reviewed personally myself show evidence of infiltrate. Radiologist agrees my interpretation. Patient was reassessed. Appears comfortable on BiPAP. No respiratory distress. Repeat VBG showed stable CO2 retention certainly not worsening. He is not a candidate for endotracheal ovation at this time. Treated the patient with broad-spectrum antibiotics given concern for pneumonia as a precipitating cause. Discussed with hospitalist Dr. Thomas who agree to admit the patient to the ICU. The patient and/or family, caregivers express understanding. The patient and/or family, caregivers agrees with the plan. Shared decision making: I will have a discussion with the patient and or visitors regarding risk/benefits of further testing or admission. They will be made aware of of the risk/benefits inherent in this decision they will be given the opportunity to voice understanding. Total critical care time today provided was at least 60 minutes. This excludes separately billable procedures. Critical care time (if documented) is secondary to the patient having high probability of clinically significant/life threatening deterioration in the patient's condition which required my urgent intervention. Impression: 1. Acute hypoxic respiratory failure 2. Acute COPD exacerbation Dispo: Admit This note was generated with [employer] dictation software. It may contain incorrect words, spelling, and punctuation that were not noted in review of the chart prior to signing. Lab Data Labs: Laboratory Results - last 24 hr 02/05/25 17:19 WBC 6.5 RBC 3.82 L Hgb 12.5 L Hct 40.7 MCV 106.5 H MCH 32.7 H MCHC 30.7 L RDW Std Deviation 61.5 H RDW Coeff of Alonso 15.8 H Plt Count 100 L MPV 11.9 Immature Gran % (Auto) 2.000 H Neut % (Auto) 57.5 Lymph % (Auto) 17.0 L [place] % (Auto) 22.9 H Eos % (Auto) 0.3 Baso % (Auto) 0.3 Absolute Neuts (auto) 3.8 Absolute Lymphs (auto) 1.11 Nucleated RBC % 0 Sodium 137 Potassium 4.7 Chloride 101 Carbon Dioxide 24.0 Anion Gap 12 BUN 47 H Creatinine 2.53 H Estim Creat Clear Calc 31.10 L Est GFR (MDRD) Non-Af 25 L BUN/Creatinine Ratio 18.5 Glucose 162 H Lactic Acid 1.8 Calcium 8.8 Troponin T High Sens 130 H* ABG Data ABG results: ABG 02/05/25 02/05/25 17:41 19:18 Specimen Type ROLANDO ROLANDO Sample Site Not entered Not entered O2 % 6.0 40.0 VBG pH 7.25 L 7.26 L VBG pO2 57 H 47 H VBG HCO3 29 H 31 H VBG Total CO2 31 33 VBG O2 Sat (Calc) 83 H 74 H VBG Base Excess 2 4 H POC Mix VBG pCO2 Pt Tmp 66.2 H 69.9 H O2 Delivery Device Cannula BiPAP Clinical Comments Radiography Diagnostic Testing: Clinical Impression(s) from Imaging Studies Chest X-Ray 02/05/25 18:00 IMPRESSION: Cardiomegaly with subtle patchy bibasilar and right perihilar opacity, concerning for infection. Reading Location: [facility] Discharge Plan Triage Chief Complaint: Shortness of Breath ED Provider: Darren Archer Dx/Rx/DC Orders Prescriptions: No Action lisinopril 10 MG tablet 10 mg PO DAILY Qty: 30 0RF Primary Care Provider: Shanan Fajardo NP Referrals: Chris Santana DO [Non-Staff] - Print Language: Irish
[2025-02-05] MEDS: Ipratropium/Albuterol Sulfate 3 ML AMPUL.NEB INHALATION (17:22)
[2025-02-05] MEDS: MethylPREDNISolone 125 MG/2 ML Vial IV (17:22)
[2025-02-05 17:31] LABS: Absolute Lymphocyte Count 1.11 X10^3/uL (0.83-4.51); Absolute Neutrophil Count 3.8 X10^3/uL (2.0-7.7); Basophil# 0.02 X10^3/uL; Basophil% 0.3 % (0-1); Eosinophil# 0.02 X10^3/uL; Eosinophils% 0.3 % (0-5); Hematocrit 40.7 % (40-54); Hemoglobin 12.5 g/dL (13.0-16.5); Lymphocyte # 1.11 X10^3/ul (0.83-4.51); Mean Corp Hgb Conc 30.7 g/dL (32-36); Mean Corpuscular Hgb 32.7 pg (27.0-32.0); Mean Corpuscular Volume 106.5 fL (80-94); Mean Platelet Vol. 11.9 fl (6.2-12.0); Monocyte% 22.9 % (0-10); NRBC Flagged by Analyzer 0 % (0-5); Neutrophil # 3.76 X10^3/uL (2.7-7.7); Neutrophil % 57.5 % (47-70); Platelet Count 100 K/mm3 (150-450); RBC Distribution Width CV 15.8 % (11.6-14.6); RBC Distribution Width SD 61.5 fl (35.1-43.9); Red Blood Count 3.82 M/mm3 (4.6-6.2); White Blood Count 6.5 K/mm3 (4.4-11.0)
[2025-02-05 17:44] LABS: Blood Gas Specimen Type VEN; O2 Delivery Device Cannula; SITE Not entered; VBG BASE EXCESS 2 mmol/L (-1.0-3.5); VBG Bicarbonate 29 mmol/L (22-26); VBG PO2 57 mmHg (25-40); VBG SO2 83 % (50-70); VBG TCO2 31 mmol/L (23-33); VBG pCO2 66.2 mmHg (41-51); VBG pH 7.25 (7.32-7.42)
[2025-02-05 17:49] LABS: Lactic Acid 1.8 mmol/L (0.0-2.0)
[2025-02-05 17:53] LABS: Anion Gap 12 (5-15); BUN 47 mg/dL (4-19); BUN/Creat Ratio 18.5 RATIO (10-20); Calcium,Total 8.8 mg/dL (7.6-11.0); Chloride 101 mmol/L (98-108); Creatinine, Serum 2.53 mg/dL (0.70-1.20); EST Glomerular Filtration Rate 25 (>60); Glucose 162 mg/dL (70-99); Potassium 4.7 mmol/L (3.3-5.1); Sodium Level 137 mmol/L (133-145)
[2025-02-05 17:56] LABS: Troponin T High Sensitivity 130 ng/L (<=22)
--- NOTE | 2025-02-05 18:00 | RAD_ITS ---
PROCEDURE: CHEST 1 VIEW (PORTABLE) 02/05/2025 REASON FOR EXAM: SOB TECHNIQUE: Frontal view of the chest. COMPARISON: None FINDINGS: Hardware: None Heart: There is severe cardiomegaly. Lungs: Subtle patchy bibasilar airspace opacities and right perihilar region. No pneumothorax. Bones: Degenerative changes are identified within the thoracic spine. Other: RAD/Chest 1 View (Portable) IMPRESSION: Cardiomegaly with subtle patchy bibasilar and right perihilar opacity, concerni ng for infection. Reading Location: [facility]
--- NOTE | 2025-02-05 18:26 | CPS ---
[1820] Pt. switched to AVAPS settings to help pt. rid of excess carbon dioxide. Tidal volumes increased and pt. able to tolerate increase in pressures.
[2025-02-05] MEDS: Ceftriaxone 1 GM/50 ML BAG IV (19:11)
[2025-02-05 19:22] LABS: Blood Gas Specimen Type VEN; O2 Delivery Device BiPAP; SITE Not entered; VBG BASE EXCESS 4 mmol/L (-1.0-3.5); VBG Bicarbonate 31 mmol/L (22-26); VBG PO2 47 mmHg (25-40); VBG SO2 74 % (50-70); VBG TCO2 33 mmol/L (23-33); VBG pCO2 69.9 mmHg (41-51); VBG pH 7.26 (7.32-7.42)
--- NOTE | 2025-02-05 19:29 | HP.PCM.HOS_ITS ---
HPI - General General Date of Admission: 02/05/25 Date of Service: 02/05/25 Chief Complaint: shortness of breath HPI Narrative GILBERTO YANEZ, is a 80 M with a PMH as outlined who presents via the ED on 02/05/2025 with a compaint of shortness of breath for 2 days prior to admission. He ahd an associated cough productive of white sputum, and denied any chest pain or leg swelling. says he does not have a history of COPD though it is in the records that he does have COPD. She denies any contact with any sick family members. Review of systems otherwise negative. Vitals in the ED were BP of 158/98, ME of 53, RR of 16 and temp of 98.3F. She was saturating at 98% on BIPAP. CBC showed hb of 12.5, platelets of 100 and chemistry showed sodium of 137, potassium of 4.7 and bicarb of 24. Cr was 2.53. Initial troponin was 130. VBG showed pH of 7.26, pO2 of 47 and pCO2 of 69.9. CXR showed cardiomegaly with subtle patchy bibasilar and right perihilar opacity, concerning for infection. HE is being admitted to be managed for acute hypoxic and hypercapnic respiratory failure due to COPD exacerbation and community acquired pneumonia. [facility] Medical History (Updated 02/05/25 @ 19:[address] Katy Thomas MD) COPD (chronic obstructive pulmonary disease) Home Medications ?Medication ?Instructions ?Recorded ?Last Taken ?Type lisinopril 10 mg tablet 10 mg PO DAILY #30 tabs 09/03 12/21 Unknown Rx Allergy/AdvReac Type Severity Reaction Status Date / Time No Known Allergies Allergy Verified 02/05/25 17:17 Social History Smoking Status: Never smoker ROS ROS Narrative Mainly obtained from patient's and son as patient was on BiPAP Review of Systems ROS Unobtainable: Denies due to encephalopathy Constitutional Constitutional: Reports fatigue, malaise and weakness; Denies anorexia, chills or fever(s) Eyes Eyes: Denies change in vision ENT HEENT: Denies dysphagia, headache(s) or sore throat Cardiovascular Cardiovascular: Reports dyspnea on exertion; Denies chest pain, edema, lightheadedness, orthopnea, palpitations, paroxysmal nocturnal dyspnea, rapid heart rate or syncope Respiratory/Chest Respiratory/Chest: Reports cough, dyspnea, shortness of breath at rest, shortness of breath with exertion and wheezing; Denies productive cough Gastrointestinal Gastrointestinal: Denies abdominal pain, constipation, diarrhea, dyspepsia, nausea or vomiting Genitourinary Genitourinary: Denies dysuria Neurologic Neurologic: Denies confusion, dizziness, focal weakness, headache(s), numbness, paresthesias, seizures or syncope Psychiatric Psychiatric: Denies anxiety or depression Vital Signs Vital Signs Vital Signs: 02/05/25 17:10 02/05/25 17:15 02/05/25 17:19 Temperature 97.9 F 97.5 F L Temperature Source Axillary Axillary Pulse Rate 75 62 Respiratory Rate 32 H 32 H Respiratory Effort Respiratory Depth Respiratory Pattern Blood Pressure 158/111 H 145/90 H Blood Pressure Mean 126 108 Pulse Ox 65 65 Oxygen Delivery Method Room Air Room Air High Flow Oxygen Flow Rate (L/min) 10 Fraction of Inspired Oxygen (FIO2) 02/05/25 17:33 02/05/25 17:34 02/05/25 17:46 Temperature Temperature Source Pulse Rate 74 Respiratory Rate 18 Respiratory Effort Short of Breath Labored Accessory Muscle Use Respiratory Depth Shallow Respiratory Pattern Normal Tachypnea Blood Pressure Blood Pressure Mean Pulse Ox 100 Oxygen Delivery Method High Flow High Flow Oxygen Flow Rate (L/min) 6 10 Fraction of Inspired Oxygen (FIO2) 02/05/25 17:57 02/05/25 18:10 02/05/25 18:15 Temperature 97.7 F L 97.7 F L Temperature Source Temporal Temporal Pulse Rate 60 57 L 57 L Respiratory Rate 21 H 18 18 Respiratory Effort Respiratory Depth Respiratory Pattern Tachypnea Blood Pressure 138/88 H 138/88 H Blood Pressure Mean 104 104 Pulse Ox 95 97 97 Oxygen Delivery Method Bi-pap Bi-pap Oxygen Flow Rate (L/min) Fraction of Inspired Oxygen (FIO2) 40 40 40 02/05/25 18:20 02/05/25 18:30 02/05/25 19:00 Temperature 98.3 F Temperature Source Axillary Pulse Rate 56 L 57 L 53 L Respiratory Rate 19 H 19 H 16 Respiratory Effort Respiratory Depth Respiratory Pattern Normal Blood Pressure 154/90 H 158/98 H Blood Pressure Mean 108 118 Pulse Ox 95 92 98 Oxygen Delivery Method Bi-pap Oxygen Flow Rate (L/min) Fraction of Inspired Oxygen (FIO2) 35 40 Weight Weight: 296 lb 15.402 oz Body Mass Index (BMI) 42.6 Physical Exam Const alert, oriented x3 and no apparent distress Constitutional Narrative: Class III obesity. On BiPAP General Appearance: cooperative HEENT normocephalic, head/scalp atraumatic, hearing grossly normal bilaterally and moist oral mucous membranes Mouth: oral and palatal mucosa normal Eyes PERRL and EOMs intact bilaterally Neck no lymphadenopathy and supple Resp Resp Narrative: moderately diminished breath sounds bibasally, bilateral wheezing, mild crackles. On BIPAP Cardio regular rate, regular rhythm, S1 normal heart sound, S2 normal heart sound and no murmurs GI normal to inspection, nondistended, normoactive bowel sounds, soft to palpation, non-tender and non-distended Extremity normal to inspection, full ROM and no clubbing, cyanosis or edema Neuro oriented x3, CN's II-XII intact bilaterally, moves all extremities and no focal motor deficits Sensorium / Orientation: awake and alert Motor Exam: strength 5/5 throughout Psych affect normal Results Lab / Micro Data 02/05/25 17:19 02/05/25 17:19 Labs: Laboratory Results - last 24 hr 02/05/25 17:19: WBC 6.5, RBC 3.82 L, Hgb 12.5 L, Hct 40.7, MCV 106.5 H, MCH 32.7 H, MCHC 30.7 L, RDW Std Deviation 61.5 H, RDW Coeff of Alonso 15.8 H, Plt Count 100 L, MPV 11.9, Immature Gran % (Auto) 2.000 H, Neut % (Auto) 57.5, Lymph % (Auto) 17.0 L, Castro % (Auto) 22.9 H, Eos % (Auto) 0.3, Baso % (Auto) 0.3, Absolute Neuts (auto) 3.8, Absolute Lymphs (auto) 1.11, Nucleated RBC % 0, Sodium 137, Potassium 4.7, Chloride 101, Carbon Dioxide 24.0, Anion Gap 12, BUN 47 H, C reatinine 2.53 H, Estim Creat Clear Calc 31.10 L, Est GFR (MDRD) Non-Af 25 L, BUN/Creatinine Ratio 18.5, Glucose 162 H, Lactic Acid 1.8, Calcium 8.8, Troponin T High Sens 130 H* Micro: Microbiology 02/05/25 17:19 Mucosa - Nose SARS-CoV-2, Influenza & RSV (PCR) - Final ABG Data ABG results: ABG 02/05/25 02/05/25 17:41 19:18 Specimen Type ROLANDO ROLANDO Sample Site Not entered Not entered O2 % 6.0 40.0 VBG pH 7.25 L 7.26 L VBG pO2 57 H 47 H VBG HCO3 29 H 31 H VBG Total CO2 31 33 VBG O2 Sat (Calc) 83 H 74 H VBG Base Excess 2 4 H POC Mix VBG pCO2 Pt Tmp 66.2 H 69.9 H O2 Delivery Device Cannula BiPAP Clinical Comments Imaging Radiology Impression Chest X-Ray 02/05/25 18:00 IMPRESSION: Cardiomegaly with subtle patchy bibasilar and right perihilar opacity, concerning for infection. [facility] Assessment & Plan Assessment/Plan (1) Respiratory failure: (2) Severe acute respiratory syndrome: (3) COPD exacerbation: PLAN: Plan #Acute hypoxic and hypercapnic respiratory failure due to COPD exacerbation and probable community acquired pneumonia * Admit to ICU on account of patient being on BiPAP. * Admitted with a complaint of shortness of breath which acutely worsened this morning. His saturation at home was low in the 70s but he did not want to come in because it was Thursday. However his shortness of breath worsened so he came into the ED where he was saturating at 65% on room air. * Chest x-ray showed severe cardiomegaly with subtle patchy bibasilar airspace opacities and right perihilar region with no pneumothorax and cardiomegaly with subtle patchy bibasilar and right perihilar opacity concerning for infection. * BNP not checked * Initial troponin is elevated at 130. This likely due to demand ischemia. * Consult critical care. Started on IV Solu-Medrol 40 mg every 8. Titrate oxygen to maintain saturation above 90%. * Started on IV ceftriaxone and azithromycin due to chest x-ray findings concerning for pneumonia. * breathing treatment with bronchodilators * In light of patient's class III obesity I suspect that patient likely has undiagnosed obstructive sleep apnea that is contributing to his symptoms also. Will benefit from follow-up with pulmonology on outpatient basis. * Repeat ABG. * # COPD exacerbation: As above #Elevated troponins: * Troponins are 130 on admission. * This likely due to demand ischemia. Will cycle troponins and check 2D echo * #LINDA: * Creatinine is 2.53 with baseline creatinine from October 2020 being 1.2. * Will hydrate with IV fluids and trend creatinine. * If it does not improve we will do further workup with renal ultrasound check Marguerite and Fe urea. * Hold lisinopril due to LINDA * #Hypertension: On lisinopril. Will hold due to LINDA. IV hydralazine prn # Class III obesity: BMI is 42.6. Complicates acute care, expected recovery and prognosis. DVT prophylaxis: Lovenox CODE STATUS: presumptive full code * Patient'x and son counseled extensively about different types of CODE STATUS including full code, DNR CCA and DNR CCA. * states she spoke to the patient about intubation earlier he wants to be intubated. However she wanted to talk to him about chest compressions and would make a decision and let us know. I informed patient's and son that in the interim patient will have to be made presumptive full code and they are in agreement. * Total [id number] time 17 minutes. * Total critical care time spent: 72 minutes. Charges/Coding Visit Charges Inpatient E&M: 82236 Init Hosp L3 Procedures Hospitalists Procedures: 12528 Advncd Care Plan 30 Min
[2025-02-05] MEDS: Azithromycin 500 MG in 0.9% Normal Saline (250mL Bag) 250 ML 250 MG IV (19:49)
[2025-02-05 20:20] LABS: Troponin T High Sens 2 HR 116 ng/L (<=22)
[2025-02-05 20:52] LABS: Allen Test Positive; Base Excess 1 mmol/L (-2 to +2); Bicarbonate 28.4 mmol/L (22-26); Blood Gas Specimen Type ART; Mode Not entered; O2 Delivery Device BiPAP; PO2 87 mmHG (75-100); SITE L Radial; SO2 95 % (95-99); Total Carbon Dioxide 30 mmol/L; pCO2 64.7 mmHg (35-45); pH 7.25 (7.35-7.45)
[2025-02-05] MEDS: 0.9% Normal Saline (1000mL) 1,000 ML 125 ML IV (21:06)
[2025-02-05] MEDS: Methylprednisolone Sod Succ 40 MG/ML VIAL IV (21:08)
[2025-02-05 21:55] LABS: Pro- Brain NATRIURETIC PEPTIDE 11172 pg/mL (<=1800)
[2025-02-05 21:57] LABS: Troponin T High Sens 4 HR 105 ng/L (<=22)
[2025-02-06] VITALS (22 sets, daily range): BP systolic 106–134; BP diastolic 54–88; PULSE 44–78; RESP 14–22; TEMP 36.4–37.3; O2SAT 88–98; BMI 44.4
[2025-02-06] MEDS: Ipratropium/Albuterol Sulfate 3 ML AMPUL.NEB INHALATION ×4 (01:45→18:59)
[2025-02-06] MEDS: Sodium Bicarbonate 8.4% 50 ML Syringe 100 MEQ IV (02:33)
[2025-02-06 04:32] LABS: Allen Test Positive; Base Excess 6 mmol/L (-2 to +2); Bicarbonate 32.9 mmol/L (22-26); Blood Gas Specimen Type ART; Mode Not entered; O2 Delivery Device BiPAP; PEEP 8; PO2 82 mmHG (75-100); RR 16; SITE L Radial; SO2 94 % (95-99); Total Carbon Dioxide 35 mmol/L; pCO2 69.5 mmHg (35-45); pH 7.28 (7.35-7.45)
[2025-02-06] MEDS: 0.9% Normal Saline (1000mL) 1,000 ML 125 ML IV (04:50)
[2025-02-06] MEDS: Methylprednisolone Sod Succ 40 MG/ML VIAL IV (04:53)
[2025-02-06 05:22] LABS: Hematocrit 39.3 % (40-54); Hemoglobin 12.1 g/dL (13.0-16.5); Mean Corp Hgb Conc 30.8 g/dL (32-36); Mean Corpuscular Hgb 32.4 pg (27.0-32.0); Mean Corpuscular Volume 105.1 fL (80-94); Mean Platelet Vol. 11.9 fl (6.2-12.0); POSITIVE COUNT YES; POSITIVE DIFFERENTIAL YES; POSITIVE MORPHOLOGY YES; Platelet Count 86 K/mm3 (150-450); RBC Distribution Width CV 15.2 % (11.6-14.6); RBC Distribution Width SD 59.4 fl (35.1-43.9); Red Blood Count 3.74 M/mm3 (4.6-6.2); White Blood Count 3.5 K/mm3 (4.4-11.0)
[2025-02-06 05:23] LABS: Differential Indicated MANUAL DIFF
[2025-02-06 05:45] LABS: Anion Gap 11 (5-15); BUN 43 mg/dL (4-19); BUN/Creat Ratio 19.4 RATIO (10-20); Calcium,Total 8.5 mg/dL (7.6-11.0); Carbon Dioxide 26.1 mmol/L (21.0-32.0); Chloride 105 mmol/L (98-108); Creatinine, Serum 2.24 mg/dL (0.70-1.20); EST Glomerular Filtration Rate 29 (>60); Estimated Creatinine Clearance 33.84 ml/min (50-250); Glucose 163 mg/dL (70-99); Potassium 5.4 mmol/L (3.3-5.1); Sodium Level 142 mmol/L (133-145)
--- NOTE | 2025-02-06 07:08 | PCM.PN.HOSP ---
Reason for Visit Reason for Visit: Diagnoses SARS-associated coronavirus as the cause of diseases classified elsewhere (02/05/25) Chronic obstructive pulmonary disease with (acute) exacerbation (02/05/25) Respiratory failure, unspecified, unspecified whether with hypoxia or hypercapnia (02/05/25) Subjective Subjective Breathing well. Oxygen able to be weaned down to 2l nc. Objective Data Objective Data Vital Signs: Vital Signs Temp Pulse Resp BP Pulse Ox O2 Del Method O2 Flow Rate 36.4 C L 63 20 H 129/88 H 94 Bi-pap 10 02/06/25 04:00 02/06/25 07:01 02/06/25 07:01 02/06/25 07:00 02/06/25 07:01 02/06/25 07:00 02/05/25 17:46 FiO2 50 02/06/25 07:01 Oxygen Flow Rate (L/min) 10 Oxygen Delivery Method Bi-pap Weight: 132.676 kg Body Mass Index (BMI) 44.4 Intake & Output: Intake and Output for Last 24 Hours 02/04/25 02/05/25 02/06/25 23:59 23:59 23:59 Intake Total 305 / 305 966.67 / 966.67 Balance 305 / 305 966.67 / 966.67 Lab / Micro Data 02/06/25 05:00 02/06/25 05:00 Labs: Laboratory Results - last 24 hr 02/05/25 17:19: WBC 6.5, RBC 3.82 L, Hgb 12.5 L, Hct 40.7, MCV 106.5 H, MCH 32.7 H, MCHC 30.7 L, RDW Std Deviation 61.5 H, RDW Coeff of Alonso 15.8 H, Plt Count 100 L, MPV 11.9, Immature Gran % (Auto) 2.000 H, Neut % (Auto) 57.5, Lymph % (Auto) 17.0 L, Lea % (Auto) 22.9 H, Eos % (Auto) 0.3, Baso % (Auto) 0.3, Absolute Neuts (auto) 3.8, Absolute Lymphs (auto) 1.11, Nucleated RBC % 0, Sodium 137, Potassium 4.7, Chloride 101, Carbon Dioxide 24.0, Anion Gap 12, BUN 47 H, Creatinine 2.53 H, Estim Creat Clear Calc 31.10 L, Est GFR (MDRD) Non-Af 25 L, BUN/Creatinine Ratio 18.5, Glucose 162 H, Lactic Acid 1.8, Calcium 8.8, Troponin T High Sens 130 H* 02/05/25 19:20: Troponin T Hi Sens 2 Hr 116 H* 02/05/25 21:25: Troponin T Hi Sens 4Hr 105 H*, [place] [id number] H 02/06/25 05:00: WBC 3.5 L, RBC 3.74 L, Hgb 12.1 L, Hct 39.3 L, MCV 105.1 H, MCH 32.4 H, MCHC 30.8 L, RDW Std Deviation 59.4 H, RDW Coeff of Alonso 15.2 H, Plt Count 86 L, MPV 11.9, Neut % (Auto) Not Reportable, Sodium 142, Potassium 5.4 H, Chloride 105, Carbon Dioxide 26.1, Anion Gap 11, BUN 43 H, Creatinine 2.24 H, Estim Creat Clear Calc 33.84 L, Est GFR (MDRD) Non-Af 29 L, BUN/Creatinine Ratio 19.4, Glucose 163 H, Calcium 8.5 Micro: Microbiology 02/05/25 17:19 Mucosa - Nose SARS-CoV-2, Influenza & RSV (PCR) - Final ABG Data ABG results: ABG 02/05/25 02/05/25 02/05/25 17:41 19:18 20:48 Specimen Type ROLANDO ROLANDO ART Sample Site Not entered Not entered L Radial pH 7.25 L Bicarbonate Actual 28.4 H Total CO2 30 Base Excess 1 O2 Saturation 95 O2 % 6.0 40.0 40.0 ABG pCO2 64.7 H ABG pO2 87 Flynn Test Positive VBG pH 7.25 L 7.26 L VBG pO2 57 H 47 H VBG HCO3 29 H 31 H VBG Total CO2 31 33 VBG O2 Sat (Calc) 83 H 74 H VBG Base Excess 2 4 H POC Mix VBG pCO2 Pt Tmp 66.2 H 69.9 H Respiration Rate O2 Delivery Device Cannula BiPAP BiPAP Vent Mode Not entered Tidal Volume POC PEEP Crit Call To/Read Back Blood Gas Notified Whom Blood Gas Notified Time Clinical Comments 02/06/25 04:27 Specimen Type ART Sample Site L Radial pH 7.28 L Bicarbonate Actual 32.9 H Total CO2 35 Base Excess 6 H O2 Saturation 94 L O2 % 50.0 ABG pCO2 69.5 H* ABG pO2 82 Flynn Test Positive VBG pH VBG pO2 VBG HCO3 VBG Total CO2 VBG O2 Sat (Calc) VBG Base Excess POC Mix VBG pCO2 Pt Tmp Respiration Rate 16 O2 Delivery Device BiPAP Vent Mode Not entered Tidal Volume 550.0 POC PEEP 8 Crit Call To/Read Back Yes Blood Gas Notified Whom White Blood Gas Notified Time 04:29:49 Clinical Comments Radiography Diagnostic Testing: Radiology Impression Chest X-Ray 02/05/25 18:00 IMPRESSION: Cardiomegaly with subtle patchy bibasilar and right perihilar opacity, concerning for infection. [facility] Physical Exam Const alert and no apparent distress HEENT head/scalp atraumatic and moist oral mucous membranes Resp normal respiratory effort, no retractions, no use of accessory muscles and clear to auscultation bilaterally Cardio regular rate, regular rhythm, S1 normal heart sound and S2 normal heart sound GI normal to inspection, nondistended, normoactive bowel sounds, soft to palpation, non-tender and non-distended Extremity normal to inspection and full ROM Neuro Sensorium / Orientation: awake and alert Assessment & Plan Assessment/Plan (1) Acute respiratory failure with hypoxia and hypercapnia: PLAN: Improving. Weaned down to 2l NC. 2/2 COPD exacerbation and pneumonia on BiPAP. Wean oxygen as tolerated. (2) COPD exacerbation: PLAN: on methylprednisolone and BDs may have been exacerbated by PNA (3) Pneumonia: PLAN: suspected pneumococcal. abx with CTX and azithromycin check urinary antigens and SCx. (4) LINDA (acute kidney injury): PLAN: Suspected. Last available creatinine is from 2020. Check urine studies. Avoid nephrotoxic agents. hold lisinopril cotinue IVF (5) Elevated troponin I level: PLAN: trending down. 2/2 demand ischemia. no additional work up, unless change in status/symptoms PLAN: Plan VTE prophylaxis: LMWH. Charges/Coding Visit Charges Inpatient E&M: 45851 Subs Hosp L2
--- NOTE | 2025-02-06 07:26 | CON.PCM.CC_ITS ---
Assessment & Plan Assessment/Plan (1) Acute respiratory failure with hypoxia and hypercapnia: (2) LINDA (acute kidney injury): PLAN: Plan RECOMMENDATIONS: 1. Stop continuous IV fluids. 2. Recommend PAP therapy with naps and nightly. 3. Obtain echocardiogram. 4. Consider gentle diuresis if respiratory status does not continue to improve. 5. Stop IV steroids. 6. Continue as needed bronchodilator therapy. 7. Will continue empiric antibiotics for now. 8. Continue Lovenox for DVT prophylaxis. 9. Encourage incentive spirometer use and mobilize patient as tolerated. 10. The patient is medically stable for transfer out of the intensive care unit. IMPRESSIONS: 1. Acute respiratory failure with hypoxemia and hypercapnia The patient presented with several days of worsening shortness of breath with radiographic evidence of airspace opacities and significant cardiomegaly. While there was initial concern for a COPD exacerbation related to pneumonia, I suspect that the patient's presentation is far more likely to be related to congestive heart failure. He has never been formally diagnosed with COPD and only has a very remote smoking history. In addition, he reported no symptom relief with the use of his home albuterol inhaler. Accordingly, the patient's continuous IV fluids have been discontinued. He has been weaned from BiPAP to nasal cannula oxygen at 2 L/min. Will plan to obtain a follow-up echocardiogram today. In the interim, the patient may require eventual institution of gentle diuresis. Bronchodilator therapy and antimicrobials can be continued for now. However, corticosteroids will be discontinued. 2. Acute kidney injury Unclear baseline, as last chemistry profile in our system was back in 2019. The patient may have experienced progression of underlying medical renal disease over that time. Regardless, there is no overt indication for any form of renal replacement therapy. Continue to monitor urine output. 3. Morbid obesity/hypertension/troponin elevation Complicates care, management, recovery and prognosis. Continue to hold home FRDEDY inhibitor given presenting renal insufficiency. PT/OT to evaluate the patient today. Echocardiogram is pending. This note was generated with [employer] dictation software. It may contain incorrect words, spelling, and punctuation that were not noted in checking the note before signing. HPI Consult Data Date of Consult: 02/06/25 HPI Narrative Reason for Consultation: Respiratory failure HPI Narrative: The patient is an 80-year-old male, with a history as outlined below, who presented to the emergency department on February 05 with progressive shortness of breath of approximately 2 days duration. The patient reported that he has never been formally diagnosed with COPD. He has a very remote smoking history, having quit completely 50+ years ago. He does not utilize supplemental oxygen at his baseline. He has never been diagnosed with asthma. In addition, he has never been evaluated for obstructive sleep apnea. The patient does report that he has access to an albuterol inhaler at home, but it does not provide any symptom relief. The patient denied the presence of a productive cough. On presentation to the emergency department, the patient was documented to be afebrile hemodynamically stable. He was initially hypoxemic, requiring high flow oxygen and was then transition to BiPAP support. Laboratory evaluation revealed a normal white blood cell count with a hemoglobin of 12.5 g/dL and platelet count of 100,000. ABG was notable for a pH of 7.28 with a PCO2 of 65 and PO2 of 87. Troponins were increased to 130 with a BNP of 11,172. Chest x- ray demonstrated cardiomegaly with patchy bilateral airspace opacities. The patient was subsequently placed on supplemental IV fluids and initiated on antimicrobial therapy. He was admitted to the medical intensive care unit. As of this morning, the patient has been weaned to nasal cannula oxygen at 2 L/min. Given the patient's significantly elevated BNP, his supplemental IV fluids were discontinued. An order for an echocardiogram has been placed. [facility] Medical History (Updated 02/06/25 @ 07:[address] Shad Moffett, DO) COPD (chronic obstructive pulmonary disease) Home Medications ?Medication ?Instructions ?Recorded ?Last Taken ?Type lisinopril 10 mg tablet 10 mg PO DAILY #30 tabs 09/03 12/21 Unknown Rx Allergy/AdvReac Type Severity Reaction Status Date / Time No Known Allergies Allergy Verified 02/05/25 17:17 Social History Smoking Status: Never smoker ROS ROS Narrative 10 systems were reviewed with pertinent positives as noted in the HPI above. Physical Exam Const alert and no apparent distress Constitutional Narrative: Morbidly obese. Resting comfortably in bed. General Appearance: cooperative HEENT normocephalic, head/scalp atraumatic and moist oral mucous membranes General Ear: hearing grossly impaired Eyes PERRL, EOMs intact bilaterally and conjunctivae normal Neck supple General: trachea midline Chest inspection of chest normal Resp Resp Narrative: Poor patient dependent inspiratory effort. Lung jacome are clear bilaterally. Cardio regular rate and regular rhythm GI normal to inspection, nondistended, normoactive bowel sounds Extremity no clubbing, cyanosis or edema Skin no rashes or lesions noted Neuro CN's II-XII intact bilaterally, moves all extremities and no focal motor deficits Psych cooperative and affect normal Lab / Micro Data 02/06/25 05:00 02/06/25 05:00 Labs: Laboratory Results - last 24 hr 02/05/25 17:19: WBC 6.5, RBC 3.82 L, Hgb 12.5 L, Hct 40.7, MCV 106.5 H, MCH 32.7 H, MCHC 30.7 L, RDW Std Deviation 61.5 H, RDW Coeff of Alonso 15.8 H, Plt Count 100 L, MPV 11.9, Immature Gran % (Auto) 2.000 H, Neut % (Auto) 57.5, Lymph % (Auto) 17.0 L, Faulk % (Auto) 22.9 H, Eos % (Auto) 0.3, Baso % (Auto) 0.3, Absolute Neuts (auto) 3.8, Absolute Lymphs (auto) 1.11, Nucleated RBC % 0, Sodium 137, Potassium 4.7, Chloride 101, Carbon Dioxide 24.0, Anion Gap 12, BUN 47 H, C reatinine 2.53 H, Estim Creat Clear Calc 31.10 L, Est GFR (MDRD) Non-Af 25 L, BUN/Creatinine Ratio 18.5, Glucose 162 H, Lactic Acid 1.8, Calcium 8.8, Troponin T High Sens 130 H* 02/05/25 19:20: Troponin T Hi Sens 2 Hr 116 H* 02/05/25 21:25: Troponin T Hi Sens 4Hr 105 H*, [place] [address] H 02/06/25 05:00: WBC 3.5 L, RBC 3.74 L, Hgb 12.1 L, Hct 39.3 L, MCV 105.1 H, MCH 32.4 H, MCHC 30.8 L, RDW Std Deviation 59.4 H, RDW Coeff of Alonso 15.2 H, Plt Count 86 L, MPV 11.9, Neut % (Auto) Not Reportable, Sodium 142, Potassium 5.4 H, Chloride 105, Carbon Dioxide 26.1, Anion Gap 11, BUN 43 H, Creatinine 2.24 H, E stim Creat Clear Calc 33.84 L, Est GFR (MDRD) Non-Af 29 L, BUN/Creatinine Ratio 19.4, Glucose 163 H, Calcium 8.5 Micro: Microbiology 02/05/25 17:19 Mucosa - Nose SARS-CoV-2, Influenza & RSV (PCR) - Final ABG Data ABG results: ABG 02/05/25 02/05/25 02/05/25 17:41 19:18 20:48 Specimen Type ROLANDO ROLANDO ART Sample Site Not entered Not entered L Radial pH 7.25 L Bicarbonate Actual 28.4 H Total CO2 30 Base Excess 1 O2 Saturation 95 O2 % 6.0 40.0 40.0 ABG pCO2 64.7 H ABG pO2 87 Flynn Test Positive VBG pH 7.25 L 7.26 L VBG pO2 57 H 47 H VBG HCO3 29 H 31 H VBG Total CO2 31 33 VBG O2 Sat (Calc) 83 H 74 H VBG Base Excess 2 4 H POC Mix VBG pCO2 Pt Tmp 66.2 H 69.9 H Respiration Rate O2 Delivery Device Cannula BiPAP BiPAP Vent Mode Not entered Tidal Volume POC PEEP Crit Call To/Read Back Blood Gas Notified Whom Blood Gas Notified Time Clinical Comments 02/06/25 04:27 Specimen Type ART Sample Site L Radial pH 7.28 L Bicarbonate Actual 32.9 H Total CO2 35 Base Excess 6 H O2 Saturation 94 L O2 % 50.0 ABG pCO2 69.5 H* ABG pO2 82 Flynn Test Positive VBG pH VBG pO2 VBG HCO3 VBG Total CO2 VBG O2 Sat (Calc) VBG Base Excess POC Mix VBG pCO2 Pt Tmp Respiration Rate 16 O2 Delivery Device BiPAP Vent Mode Not entered Tidal Volume 550.0 POC PEEP 8 Crit Call To/Read Back Yes Blood Gas Notified Whom White Blood Gas Notified Time 04:29:49 Clinical Comments Imaging Radiology Impression Chest X-Ray 02/05/25 18:00 IMPRESSION: Cardiomegaly with subtle patchy bibasilar and right perihilar opacity, concerning for infection. Reading Location: [facility] Charges/Coding Visit Charges Inpatient E&M: 78563 Init Hosp L3
--- NOTE | 2025-02-06 07:30 | ECHOCS_ITS ---
Reason For Study Reason For Study: DYSPNEA/SOB Procedure This was a 2D Doppler, Color Flow transthoracic echocardiogram. The study was technically difficult. Exam performed portable in ICU/CCU. Left Ventricle Normal LV size. Mild concentric left ventricular hypertrophy. Left ventricular systolic function is normal. The left ventricular ejection fraction is 55 %. No regional wall motion abnormalities noted. Right Ventricle Normal RV size. Normal systolic function. Pulmonic Valve The pulmonic valve is not well visualized. Great Vessels Normal aortic root. The pulmonary artery is normal size. Inferior vena cava collapse with respiration. Pericardium/Pleural No pericardial effusion. Medication Diluted definity 3ml given slow IV push to enhance endocardial definition. MMode/2D Measurements & Calculations LVIDd: 5.7 cm IVSd: 1.2 cm Ao root diam: 3.3 cm LVIDs: 3.9 cm LVPWd: 1.2 cm RVDd: 3.9 cm FS: 31.5 % LAV(MOD-bp): 86.1 ml LA dimension(2D): 4.6 cm LA A4 area: 27.6 cm2 LAV(MOD-bp) Indexed: 35.9 ml/m2 LAV(MOD-sp2): 83.3 ml LAV(MOD-sp4): 89.2 ml RA A4 area: 31.0 cm2 TAPSE: 1.9 cm Time Measurements MV dec time: 0.39 sec Doppler Measurements & Calculations MV E max thuan: 67.2 cm/sec Lat Peak E' Thuan: 7.4 cm/sec Med Peak E' Thuan: 6.0 cm/sec MV A max thuan: 95.9 cm/sec E/E' lat: 9.1 E/E' med: 11.3 MV E/A: 0.70 Ao V2 max: 148.7 cm/sec LV V1 max: 120.0 cm/sec PA V2 max: 108.7 cm/sec Ao max P.9 mmHg LV V1 max P.8 mmHg ECHO/Echo Complete W/ Contrast Interpretation Summary Normal LV size. Left ventricular systolic function is normal. The left ventricular ejection fraction is 55 %. Mild concentric left ventricular hypertrophy. Contrast injection was performed. Ordering Physician: Miguelangel Granados Referring Physician: MANISH BEDOYA Performed By: Linda Mandujano RDCS
[2025-02-06 07:59] LABS: Lymphocyte 15 % (19-41); Neutrophil-Band 3 % (0-5); Neutrophil-Segmented 81 % (47-70); Total Cells Counted 100 (MANUAL DIFF)
[2025-02-06 08:01] LABS: Myelocyte 1 % (0-0); Pathologist Review May foll; Platelet Estimate SLT DEC (ADEQ); Red Cell Morphology NORM C+C NORMAL (NORM C&C)
[2025-02-06 08:02] LABS: Absolute Lymphocyte Count 0.53 X10^3/uL (0.83-4.51); Absolute Neutrophil Count 2.9 X10^3/uL (2.0-7.7)
[2025-02-06 08:48] LABS: Procalcitonin 0.21 ng/mL (<=0.10)
[2025-02-06 11:03] LABS: Bacteria 0 SEEN /hpf (None Seen); Color, Urine Yellow (Yellow); Glucose, Dipstick Normal (Normal); Ketone-Dipstick Negative (Negative); Leukocyte Esterase-Dipstick Negative /ul (Negative); Mucous, Urine 0 SEEN /hpf (<or=2+); Nitrite-Dipstick Negative (Negative); Occult Blood-Urine 150 /ul (Negative); Protein-Dipstick 30 mg/dl (Negative); Red Blood Cells-Urine 0 SEEN /hpf (0-5); Squamous Epithelial Cells - UA 0 SEEN /hpf (0-5); Urine Bilirubin Dipstick Negative (Negative); Urine Clarity Clear (Clear); Urine Urobilinogen Normal (Normal); White Blood Cells 0 SEEN /hpf (0-5)
[2025-02-06] MEDS: Enoxaparin 40 MG/0.4 ML Syringe SC (11:40)
--- NOTE | 2025-02-06 14:50 | CASEMGMT ---
Addendum entered by Kamryn Morse 02/06/25 14:59: Pt is now listed as [facility] Aid regarding insurance Original Note: RN CM Assessment Face to Face with patient for initial transition planning/care coordination assessment. RN CM introduced self and role at [facility], pt voices understanding. Pt is A&Ox4 and is resting comfortably in the chair and is calm. Pt son (Adriana) and DIL @ bedside. Care providers, pharmacy, and demographics verified. Admitting dx: acute hypoxic and hypercapnic RF LACE Strata: 2 PCP: Shanna Fajardo Specialists: Denies Preferred Pharmacy: [facility] Insurance: Toan Mittal Liaison, has seen the pt. Pt denies wanting to talk to the pt [employer] Inspector as the pt denies any concerns about this Prescription Benefit: Denies LNOK: Teresa Morse (W), Adriana Morse (Son), Daniel Morse (Son) Living Arrangements: Pt lives with his and son (Daniel) in a single story home with a flat entrance ADLs/IADLs: Reports independent Transportation: Hires drivers and denies concerns DME: Functioning BGM with sufficient supplies. FWW. Crutches. W/C. Shower chair. Grab bars. Pt is currently requiring additional oxygen and may qualify for home oxygen use. A verbal list of local in-network DME companies were provided to the pt at this time. Pt prefers [facility]. HHC/SNF: Denies history or needs Pt?s goal: Home Plan: Home with family, follow for additional oxygen needs. See PT and OT notes. At this time, the pt denies the need for HH, OP Tx, or SNF. Pt states that he feels safe returning home with his family once he is medically ready and denies further questions or concerns at this time. CM to follow. Rubens Morse RN, CM
[2025-02-06] MEDS: Ceftriaxone 1 GM/50 ML BAG IV (20:38)
[2025-02-06] MEDS: 0.9% Saline Lock 10 ML Syringe IV (20:39)
[2025-02-06] MEDS: Azithromycin 500 MG in 0.9% Normal Saline (250mL Bag) 250 ML 255 MG IV (21:19)
[2025-02-06 22:22] LABS: Urine Sodium 59 mmol/L (Not Establ.)
[2025-02-07] VITALS (11 sets, daily range): BP systolic 103–129; BP diastolic 67–82; PULSE 52–68; RESP 12–20; TEMP 36–36.6; O2SAT 92–99; BMI 45.1
[2025-02-07] MEDS: Ipratropium/Albuterol Sulfate 3 ML AMPUL.NEB INHALATION ×3 (00:33→19:33)
--- NOTE | 2025-02-07 00:50 | CPS ---
Pt said he will keep bipap on as long as he can. RN aware.
--- NOTE | 2025-02-07 01:20 | CPS ---
pt spo2 dropped to 83% on .28 Fio2 increased to 40% oxygen
[2025-02-07 08:00] LABS: Absolute Lymphocyte Count 1.04 X10^3/uL (0.83-4.51); Absolute Neutrophil Count 4.3 X10^3/uL (2.0-7.7); Basophil# 0.02 X10^3/uL; Basophil% 0.3 % (0-1); Eosinophil# 0.01 X10^3/uL; Eosinophils% 0.1 % (0-5); Hematocrit 38.3 % (40-54); Hemoglobin 11.8 g/dL (13.0-16.5); Lymphocyte # 1.04 X10^3/ul (0.83-4.51); Lymphocyte % 14.4 % (19-41); Mean Corp Hgb Conc 30.8 g/dL (32-36); Mean Corpuscular Hgb 32.3 pg (27.0-32.0); Mean Corpuscular Volume 104.9 fL (80-94); Mean Platelet Vol. 11.8 fl (6.2-12.0); Monocyte% 23.6 % (0-10); NRBC Flagged by Analyzer 0 % (0-5); Neutrophil # 4.34 X10^3/uL (2.7-7.7); Neutrophil % 60.2 % (47-70); POSITIVE COUNT YES; POSITIVE DIFFERENTIAL YES; Platelet Count 93 K/mm3 (150-450); RBC Distribution Width CV 15.7 % (11.6-14.6); RBC Distribution Width SD 59.9 fl (35.1-43.9); Red Blood Count 3.65 M/mm3 (4.6-6.2); White Blood Count 7.2 K/mm3 (4.4-11.0)
[2025-02-07 08:02] LABS: Differential Indicated SCAN CRITERIA MET
[2025-02-07 08:29] LABS: Anion Gap 11 (5-15); BUN 50 mg/dL (4-19); BUN/Creat Ratio 21.5 RATIO (10-20); Calcium,Total 8.6 mg/dL (7.6-11.0); Carbon Dioxide 24.4 mmol/L (21.0-32.0); Chloride 105 mmol/L (98-108); Creatinine, Serum 2.33 mg/dL (0.70-1.20); Differential Comment SCANNED; EST Glomerular Filtration Rate 27 (>60); Glucose 100 mg/dL (70-99); Platelet Estimate MOD DEC (ADEQ); Potassium 4.9 mmol/L (3.3-5.1); Sodium Level 140 mmol/L (133-145)
--- NOTE | 2025-02-07 09:24 | PN.HOSP_ITS ---
Reason for Visit Reason for Visit: Diagnoses SARS-associated coronavirus as the cause of diseases classified elsewhere (02/05/25) Pneumonia, unspecified organism (02/05/25) Chronic obstructive pulmonary disease with (acute) exacerbation (02/05/25) Acute respiratory failure with hypoxia (02/05/25) Acute respiratory failure with hypercapnia (02/05/25) Respiratory failure, unspecified, unspecified whether with hypoxia or hypercapnia (02/05/25) Acute kidney failure, unspecified (02/05/25) Other specified abnormal findings of blood chemistry (02/05/25) Subjective Subjective Breathing ok. Still coughing. Objective Data Objective Data Vital Signs: Vital Signs Temp Pulse Resp BP Pulse Ox O2 Del Method O2 Flow Rate 36.6 C 63 14 129/82 H 99 Nasal Cannula 4 02/07/25 07:29 02/07/25 07:34 02/07/25 07:34 02/07/25 07:29 02/07/25 07:34 02/07/25 09:05 02/07/25 07:49 FiO2 40 02/07/25 03:00 Oxygen Flow Rate (L/min) 4 Oxygen Delivery Method Nasal Cannula Weight: 134.6 kg Body Mass Index (BMI) 45.1 Intake & Output: Intake and Output for Last 24 Hours 02/05/25 02/06/25 02/07/25 23:59 23:59 23:59 Intake Total 305 / 305 2194.59 / 2194.59 Output Total 600 / 600 Balance 305 / 305 1594.59 / 1594.59 Lab / Micro Data 02/07/25 07:43 02/07/25 07:43 Labs: Laboratory Results - last 24 hr 02/06/25 10:28: Urine Color Yellow, Urine Clarity Clear, Urine pH 6.0, Ur Specific [place] 1.020, Urine Protein 30 H, Urine Glucose (UA) Normal, Urine Ketones Negative, Urine Occult Blood 150 H, Urine Nitrite Negative, Urine Bilirubin Negative, Urine Urobilinogen Normal, Ur Leukocyte Esterase Negative, Urine RBC 0 SEEN, Urine WBC 0 SEEN, Ur Squamous Epith Cells 0 SEEN, Urine Bacteria 0 SEEN, Urine Mucus 0 SEEN, Ur Random Sodium 59, Urine Creatinine 92.00 02/07/25 07:43: WBC 7.2, RBC 3.65 L, Hgb 11.8 L, Hct 38.3 L, MCV 104.9 H, MCH 32.3 H, MCHC 30.8 L, RDW Std Deviation 59.9 H, RDW Coeff of Alonso 15.7 H, Plt Count 93 L, MPV 11.8, Immature Gran % (Auto) 1.400 H, Neut % (Auto) 60.2, Lymph % (Auto) 14.4 L, [place] % (Auto) 23.6 H, Eos % (Auto) 0.1, Baso % (Auto) 0.3, Absolute Neuts (auto) 4.3, Absolute Lymphs (auto) 1.04, Nucleated RBC % 0, Differential Comment SCANNED, Platelet Estimate MOD DEC, Sodium 140, Potassium 4.9, Chloride 105, Carbon Dioxide 24.4, Anion Gap 11, BUN 50 H, Creatinine 2.33 H, Estim Creat Clear Calc 32.80 L, Est GFR (MDRD) Non-Af 27 L, BUN/Creatinine Ratio 21.5 H, Glucose 100 H, Calcium 8.6 Micro: Microbiology 02/06/25 10:28 Urine, Clean Catch Legionella Antigen - Final 02/06/25 10:28 Urine, Clean Catch Streptococcus pneumoniae Antigen (M - Final 02/05/25 17:19 Mucosa - Nose SARS-CoV-2, Influenza & RSV (PCR) - Final Radiography Diagnostic Testing: Radiology Impression Echocardiogram 02/06/25 07:30 Interpretation Summary Normal LV size. Left ventricular systolic function is normal. The left ventricular ejection fraction is 55 %. Mild concentric left ventricular hypertrophy. Contrast injection was performed. Ordering Physician: Miguelangel Granados Referring Physician: MANISH BEDOYA Performed By: Linda Mandujano RDCS Physical Exam Const alert and no apparent distress HEENT head/scalp atraumatic and moist oral mucous membranes Resp normal respiratory effort and no retractions Resp Narrative: bilateral crackles. Cardio regular rate, regular rhythm, S1 normal heart sound and S2 normal heart sound GI normal to inspection, nondistended, normoactive bowel sounds and soft to palpation Extremity General Extremity: edema bilateral upper extremity and lower extremity Neuro Sensorium / Orientation: awake and alert Psych affect normal Assessment & Plan Assessment/Plan (1) Acute respiratory failure with hypoxia and hypercapnia: PLAN: Improving. Weaned down to 2l NC. 2/2 COPD exacerbation and pneumonia Wean oxygen as tolerated. (2) Pneumonia: PLAN: suspected pneumococcal. abx with CTX and azithromycin check urinary antigens negative. SCx pending. (3) LINDA (acute kidney injury): PLAN: FENa calculated at 0.99%, consistent with prerenal azotemia. Avoid nephrotoxic agents. hold lisinopril cotinue IVF Creatinine stable. Continue to monitor. (4) Elevated troponin I level: PLAN: trending down. 2/2 demand ischemia. no additional work up, unless change in status/symptoms (5) (HFpEF) heart failure with preserved ejection fraction: PLAN: Acute Add furosemide monitor PLAN: Plan VTE prophylaxis: LMWH. Charges/Coding Visit Charges Inpatient E&M: 89720 Subs Hosp L2
[2025-02-07] MEDS: Enoxaparin 40 MG/0.4 ML Syringe SC (12:34)
[2025-02-07] MEDS: Furosemide 40 MG/4 ML Vial IV (13:58)
[2025-02-07] MEDS: 0.9% Saline Lock 10 ML Syringe IV ×2 (13:58→20:10)
[2025-02-07] MEDS: Ceftriaxone 1 GM/50 ML BAG IV (20:10)
[2025-02-07] MEDS: Azithromycin 500 MG in 0.9% Normal Saline (250mL Bag) 250 ML 255 MG IV (20:48)
[2025-02-08] VITALS (12 sets, daily range): BP systolic 92–144; BP diastolic 65–80; PULSE 57–72; RESP 17–20; TEMP 36.2–37; O2SAT 86–98; BMI 45.1
--- NOTE | 2025-02-08 05:12 | CPS ---
pt not wearing bipap this night, 2L nasal o2 most of the night.
[2025-02-08 06:47] LABS: Absolute Lymphocyte Count 1.02 X10^3/uL (0.83-4.51); Absolute Neutrophil Count 3.9 X10^3/uL (2.0-7.7); Basophil# 0.02 X10^3/uL; Basophil% 0.3 % (0-1); Eosinophil# 0.05 X10^3/uL; Eosinophils% 0.8 % (0-5); Hematocrit 40.3 % (40-54); Hemoglobin 12.2 g/dL (13.0-16.5); Lymphocyte # 1.02 X10^3/ul (0.83-4.51); Lymphocyte % 15.7 % (19-41); Mean Corp Hgb Conc 30.3 g/dL (32-36); Mean Corpuscular Hgb 32.4 pg (27.0-32.0); Mean Corpuscular Volume 106.9 fL (80-94); Mean Platelet Vol. 11.9 fl (6.2-12.0); Monocyte# 1.39 X10^3/uL; Monocyte% 21.5 % (0-10); NRBC Flagged by Analyzer 0 % (0-5); Neutrophil % 60.2 % (47-70); POSITIVE COUNT YES; Platelet Count 90 K/mm3 (150-450); RBC Distribution Width CV 15.8 % (11.6-14.6); RBC Distribution Width SD 62.4 fl (35.1-43.9); Red Blood Count 3.77 M/mm3 (4.6-6.2); White Blood Count 6.5 K/mm3 (4.4-11.0)
[2025-02-08 07:00] LABS: Anion Gap 9 (5-15); BUN 49 mg/dL (4-19); BUN/Creat Ratio 22.8 RATIO (10-20); Calcium,Total 8.7 mg/dL (7.6-11.0); Chloride 105 mmol/L (98-108); Creatinine, Serum 2.13 mg/dL (0.70-1.20); EST Glomerular Filtration Rate 30 (>60); Estimated Creatinine Clearance 35.91 ml/min (50-250); Glucose 114 mg/dL (70-99); Potassium 5.1 mmol/L (3.3-5.1); Sodium Level 142 mmol/L (133-145)
[2025-02-08] MEDS: Ipratropium/Albuterol Sulfate 3 ML AMPUL.NEB INHALATION ×2 (07:07→19:50)
--- NOTE | 2025-02-08 08:21 | PN.HOSP_ITS ---
Reason for Visit Reason for Visit: Diagnoses SARS-associated coronavirus as the cause of diseases classified elsewhere (02/05/25) Unspecified diastolic (congestive) heart failure (02/05/25) Pneumonia, unspecified organism (02/05/25) Chronic obstructive pulmonary disease with (acute) exacerbation (02/05/25) Acute respiratory failure with hypoxia (02/05/25) Acute respiratory failure with hypercapnia (02/05/25) Respiratory failure, unspecified, unspecified whether with hypoxia or hypercapnia (02/05/25) Acute kidney failure, unspecified (02/05/25) Other specified abnormal findings of blood chemistry (02/05/25) Subjective Subjective Breathing better. Decreased edema. HR noted to be tachycardic. Objective Data Objective Data Vital Signs: Vital Signs Temp Pulse Resp BP Pulse Ox O2 Del Method O2 Flow Rate 36.2 C L 64 18 92/65 97 Nasal Cannula 4 02/08/25 02:50 02/08/25 02:50 02/08/25 02:50 02/08/25 02:50 02/08/25 05:13 02/08/25 05:13 02/08/25 05:13 FiO2 40 02/07/25 03:00 Oxygen Flow Rate (L/min) 4 Oxygen Delivery Method Nasal Cannula Weight: 134.8 kg Body Mass Index (BMI) 45.1 Intake & Output: Intake and Output for Last 24 Hours 02/06/25 02/07/25 02/08/25 23:59 23:59 23:59 Intake Total 2194.59 / 2194.59 305 / 305 Output Total 600 / 600 2425 / 2425 Balance 1594.59 / 1594.59 -2120 / -2120 Lab / Micro Data 02/08/25 06:08 02/08/25 06:08 Labs: Laboratory Results - last 24 hr 02/07/25 07:43: Differential Comment SCANNED, Platelet Estimate MOD DEC, Sodium 140, Potassium 4.9, Chloride 105, Carbon Dioxide 24.4, Anion Gap 11, BUN 50 H, C reatinine 2.33 H, Estim Creat Clear Calc 32.80 L, Est GFR (MDRD) Non-Af 27 L, B UN/Creatinine Ratio 21.5 H, Glucose 100 H, Calcium 8.6 02/08/25 06:08: WBC 6.5, RBC 3.77 L, Hgb 12.2 L, Hct 40.3, MCV 106.9 H, MCH 32.4 H, MCHC 30.3 L, RDW Std Deviation 62.4 H, RDW Coeff of Alonso 15.8 H, Plt Count 90 L, MPV 11.9, Immature Gran % (Auto) 1.500 H, Neut % (Auto) 60.2, Lymph % (Auto) 15.7 L, [place] % (Auto) 21.5 H, Eos % (Auto) 0.8, Baso % (Auto) 0.3, Absolute Neuts (auto) 3.9, Absolute Lymphs (auto) 1.02, Nucleated RBC % 0, Sodium 142, Potassium 5.1, Chloride 105, Carbon Dioxide 29.0, Anion Gap 9, BUN 49 H, C reatinine 2.13 H, Estim Creat Clear Calc 35.91 L, Est GFR (MDRD) Non-Af 30 L, B UN/Creatinine Ratio 22.8 H, Glucose 114 H, Calcium 8.7 Micro: Microbiology 02/06/25 13:07 Sputum, Expectorated/Coughed Gram Stain - Final 02/06/25 10:28 Urine, Clean Catch Legionella Antigen - Final 02/06/25 10:28 Urine, Clean Catch Streptococcus pneumoniae Antigen (M - Final 02/05/25 17:19 Mucosa - Nose SARS-CoV-2, Influenza & RSV (PCR) - Final Physical Exam Const alert and no apparent distress HEENT head/scalp atraumatic and moist oral mucous membranes Resp normal respiratory effort and no retractions Resp Narrative: coarse crackles. Cardio regular rate, regular rhythm, S1 normal heart sound and S2 normal heart sound GI normal to inspection, nondistended, normoactive bowel sounds, soft to palpation, non-tender and non-distended Extremity normal to inspection and full ROM Neuro Sensorium / Orientation: awake and alert Assessment & Plan Assessment/Plan (1) Acute respiratory failure with hypoxia and hypercapnia: PLAN: Improving. Weaned down to 2l NC. 2/2 COPD exacerbation and pneumonia Wean oxygen as tolerated. (2) Pneumonia: PLAN: suspected pneumococcal. abx with CTX and azithromycin check urinary antigens negative. SCx pending. (3) LINDA (acute kidney injury): PLAN: Improving. Monitor. (4) Elevated troponin I level: PLAN: trending down. 2/2 demand ischemia. no additional work up, unless change in status/symptoms (5) (HFpEF) heart failure with preserved ejection fraction: PLAN: Acute continue IV furosemide monitor (6) Tachycardia: PLAN: Read as junctional on EKG. Looks more afib to me. Started on metoprolol monitor. PLAN: Plan VTE prophylaxis: LMWH. Charges/Coding Visit Charges Inpatient E&M: 33041 Subs Hosp L2
[2025-02-08] MEDS: Furosemide 40 MG/4 ML Vial IV ×2 (08:58→18:20)
[2025-02-08] MEDS: 0.9% Saline Lock 10 ML Syringe IV ×3 (08:58→21:46)
[2025-02-08] MEDS: Enoxaparin 40 MG/0.4 ML Syringe SC (08:59)
--- NOTE | 2025-02-08 10:13 | EKG12_ITS ---
Test Reason : AF Blood Pressure : */* mmHG Vent. Rate : 115 BPM Atrial Rate : * BPM P-R Int : * ms QRS Dur : 80 ms QT Int : 390 ms P-R-T Axes : * -41 24 degrees QTcB Int : 539 ms Critical Test Result: Arrhythmia Accelerated Junctional rhythm with frequent and consecutive Premature ventricular complexes Left axis deviation Low voltage QRS Inferior infarct , age undetermined Possible Anterolateral infarct Prolonged QT Abnormal ECG When compared with ECG of 05-Feb-2025 17:22, Significant changes have occurred Confirmed by MAKENNA SMITH, PRISCA ([id number]), deputy editor in chief MANISH OSHEA ([id number]) on 02/09/2025 8:42:42 AM Referred By: MIRANDA Confirmed By: PRISCA MENSAH MD
[2025-02-08] MEDS: Metoprolol Tartrate 50 MG Tablet PO (11:01)
--- NOTE | 2025-02-08 21:34 | CPS ---
Patient refused PAP therapy for night time use.
[2025-02-08] MEDS: Ceftriaxone 1 GM/50 ML BAG IV (21:46)
[2025-02-08] MEDS: Azithromycin 500 MG in 0.9% Normal Saline (250mL Bag) 250 ML 255 MG IV (22:56)
[2025-02-09] VITALS (13 sets, daily range): BP systolic 109–119; BP diastolic 72–82; PULSE 56–70; RESP 16–19; TEMP 36.1–36.9; O2SAT 71–98; BMI 45.2
[2025-02-09 06:44] LABS: Basophil# 0.02 X10^3/uL; Basophil% 0.4 % (0-1); Eosinophil# 0.09 X10^3/uL; Eosinophils% 1.7 % (0-5); Hematocrit 39.8 % (40-54); Hemoglobin 12.3 g/dL (13.0-16.5); Lymphocyte % 16.9 % (19-41); Mean Corp Hgb Conc 30.9 g/dL (32-36); Mean Corpuscular Hgb 32.7 pg (27.0-32.0); Mean Corpuscular Volume 105.9 fL (80-94); Mean Platelet Vol. 12.2 fl (6.2-12.0); Monocyte# 1.28 X10^3/uL; Monocyte% 24.1 % (0-10); NRBC Flagged by Analyzer 0 % (0-5); Neutrophil # 2.95 X10^3/uL (2.7-7.7); Neutrophil % 55.4 % (47-70); POSITIVE COUNT YES; Platelet Count 88 K/mm3 (150-450); RBC Distribution Width CV 15.2 % (11.6-14.6); Red Blood Count 3.76 M/mm3 (4.6-6.2); White Blood Count 5.3 K/mm3 (4.4-11.0)
[2025-02-09 06:59] LABS: Anion Gap 9 (5-15); BUN 40 mg/dL (4-19); BUN/Creat Ratio 21.2 RATIO (10-20); Calcium,Total 9.1 mg/dL (7.6-11.0); Chloride 100 mmol/L (98-108); Creatinine, Serum 1.89 mg/dL (0.70-1.20); EST Glomerular Filtration Rate 35 (>60); Estimated Creatinine Clearance 40.51 ml/min (50-250); Glucose 103 mg/dL (70-99); Potassium 4.9 mmol/L (3.3-5.1); Sodium Level 144 mmol/L (133-145)
[2025-02-09] MEDS: Ipratropium/Albuterol Sulfate 3 ML AMPUL.NEB INHALATION ×3 (07:28→19:55)
--- NOTE | 2025-02-09 08:40 | PCM.PN.HOSP ---
Reason for Visit Reason for Visit: Diagnoses SARS-associated coronavirus as the cause of diseases classified elsewhere (02/05/25) Unspecified diastolic (congestive) heart failure (02/05/25) Pneumonia, unspecified organism (02/05/25) Chronic obstructive pulmonary disease with (acute) exacerbation (02/05/25) Acute respiratory failure with hypoxia (02/05/25) Acute respiratory failure with hypercapnia (02/05/25) Respiratory failure, unspecified, unspecified whether with hypoxia or hypercapnia (02/05/25) Acute kidney failure, unspecified (02/05/25) Tachycardia, unspecified (02/05/25) Other specified abnormal findings of blood chemistry (02/05/25) Subjective Subjective Breathing well. Improved edema. Objective Data Objective Data Vital Signs: Vital Signs Temp Pulse Resp BP Pulse Ox O2 Del Method O2 Flow Rate 36.4 C L 61 16 117/73 98 Nasal Cannula 3 02/09/25 03:45 02/09/25 07:28 02/09/25 07:28 02/09/25 03:45 02/09/25 07:28 02/09/25 07:28 02/09/25 07:28 FiO2 95 02/08/25 09:11 Oxygen Flow Rate (L/min) 3 Oxygen Delivery Method Nasal Cannula Weight: 135 kg Body Mass Index (BMI) 45.2 Intake & Output: Intake and Output for Last 24 Hours 02/07/25 02/08/25 02/09/25 23:59 23:59 23:59 Intake Total 305 / 305 50 / 50 255 / 255 Output Total 2425 / 2425 4875 / 4875 500 / 500 Balance -2120 / -2120 -4825 / -4825 -245 / -245 Lab / Micro Data 02/09/25 05:35 02/09/25 05:35 Labs: Laboratory Results - last 24 hr 02/09/25 05:35: WBC 5.3, RBC 3.76 L, Hgb 12.3 L, Hct 39.8 L, MCV 105.9 H, MCH 32.7 H, MCHC 30.9 L, RDW Std Deviation 59.0 H, RDW Coeff of Alonso 15.2 H, Plt Count 88 L, MPV 12.2 H, Immature Gran % (Auto) 1.500 H, Neut % (Auto) 55.4, Lymph % (Auto) 16.9 L, [place] % (Auto) 24.1 H, Eos % (Auto) 1.7, Baso % (Auto) 0.4, Absolute Neuts (auto) 3.0, Absolute Lymphs (auto) 0.90, Nucleated RBC % 0, Sodium 144, Potassium 4.9, Chloride 100, Carbon Dioxide 35.0 H, Anion Gap 9, BUN 40 H, Creatinine 1.89 H, Estim Creat Clear Calc 40.51 L, Est GFR (MDRD) Non-Af 35 L, BUN/Creatinine Ratio 21.2 H, Glucose 103 H, Calcium 9.1 Micro: Microbiology 02/06/25 13:07 Sputum, Expectorated/Coughed Gram Stain - Final 02/06/25 13:07 Sputum, Expectorated/Coughed Respiratory Culture - Final Presumptive C albicans 02/06/25 10:28 Urine, Clean Catch Legionella Antigen - Final 02/06/25 10:28 Urine, Clean Catch Streptococcus pneumoniae Antigen (M - Final 02/05/25 17:19 Mucosa - Nose SARS-CoV-2, Influenza & RSV (PCR) - Final Physical Exam Const alert and no apparent distress HEENT head/scalp atraumatic and moist oral mucous membranes Resp Resp Narrative: coarse wheezes bilaterally. Cardio regular rate, regular rhythm, S1 normal heart sound and S2 normal heart sound GI normal to inspection, nondistended, normoactive bowel sounds, soft to palpation, non-tender and non-distended Extremity Extremity Narrative: resolved UE edema. Improved LE edema. Assessment & Plan Assessment/Plan (1) Acute respiratory failure with hypoxia and hypercapnia: PLAN: Improving. Weaned down to 2l NC. 2/2 pneumonia and CHF exacerbation. Wean oxygen as tolerated. (2) Pneumonia: PLAN: suspected pneumococcal. abx with CTX and azithromycin check urinary antigens negative. SCx showing C. albicans (which is likely a contaminant) (3) (HFpEF) heart failure with preserved ejection fraction: PLAN: Acute continue IV furosemide monitor (4) LINDA (acute kidney injury): PLAN: Improving. Monitor. (5) Elevated troponin I level: PLAN: trending down. 2/2 demand ischemia. no additional work up, unless change in status/symptoms (6) Tachycardia: PLAN: Resolved Read as junctional on EKG. On second look of EKG, it does not look like afib. Continue on metoprolol, but will decrease dose from 50 BID to 25 BID given HR in the 50s. PLAN: Plan VTE prophylaxis: LMWH. DW family at bedside. Charges/Coding Visit Charges Inpatient E&M: 14710 Subs Hosp L2
[2025-02-09] MEDS: Furosemide 40 MG/4 ML Vial IV ×2 (10:04→17:37)
[2025-02-09] MEDS: 0.9% Saline Lock 10 ML Syringe IV ×3 (10:04→22:00)
[2025-02-09] MEDS: Metoprolol Tartrate 50 MG Tablet PO (10:05)
[2025-02-09] MEDS: Enoxaparin 40 MG/0.4 ML Syringe SC (10:05)
[2025-02-09] MEDS: Ceftriaxone 1 GM/50 ML BAG IV (21:59)
[2025-02-09] MEDS: Metoprolol Tartrate 25 MG Tablet PO (22:05)
[2025-02-09] MEDS: Azithromycin 500 MG in 0.9% Normal Saline (250mL Bag) 250 ML 255 MG IV (22:47)
--- NOTE | 2025-02-09 23:00 | CPS ---
Pt Refusing BiPAP
[2025-02-10] VITALS (8 sets, daily range): BP systolic 100–126; BP diastolic 67–88; PULSE 64–76; RESP 12–20; TEMP 36.6–36.9; O2SAT 88–94; BMI 45.1
[2025-02-10] MEDS: Ipratropium/Albuterol Sulfate 3 ML AMPUL.NEB INHALATION ×3 (01:10→13:16)
--- NOTE | 2025-02-10 08:14 | PCM.PN.HOSP ---
Reason for Visit Reason for Visit: Diagnoses SARS-associated coronavirus as the cause of diseases classified elsewhere (02/05/25) Unspecified diastolic (congestive) heart failure (02/05/25) Pneumonia, unspecified organism (02/05/25) Chronic obstructive pulmonary disease with (acute) exacerbation (02/05/25) Acute respiratory failure with hypoxia (02/05/25) Acute respiratory failure with hypercapnia (02/05/25) Respiratory failure, unspecified, unspecified whether with hypoxia or hypercapnia (02/05/25) Acute kidney failure, unspecified (02/05/25) Tachycardia, unspecified (02/05/25) Other specified abnormal findings of blood chemistry (02/05/25) Subjective Subjective Feeling better. Objective Data Objective Data Vital Signs: Vital Signs Temp Pulse Resp BP Pulse Ox O2 Del Method O2 Flow Rate 36.6 C 76 18 126/82 H 90 Nasal Cannula 2 02/10/25 04:00 02/10/25 04:00 02/10/25 04:00 02/10/25 04:00 02/10/25 04:00 02/10/25 04:00 02/10/25 04:00 FiO2 95 02/08/25 09:11 Oxygen Flow Rate (L/min) 2 Oxygen Delivery Method Nasal Cannula Weight: 134.8 kg Body Mass Index (BMI) 45.1 Intake & Output: Intake and Output for Last 24 Hours 02/08/25 02/09/25 02/10/25 23:59 23:59 23:59 Intake Total 50 / 50 805 / 805 255 / 255 Output Total 4875 / 4875 2450 / 2450 1460 / 1460 Balance -4825 / -4825 -1645 / -1645 -1205 / -1205 Lab / Micro Data 02/09/25 05:35 02/10/25 07:30 Micro: Microbiology 02/06/25 13:07 Sputum, Expectorated/Coughed Gram Stain - Final 02/06/25 13:07 Sputum, Expectorated/Coughed Respiratory Culture - Final Presumptive C albicans 02/06/25 10:28 Urine, Clean Catch Legionella Antigen - Final 02/06/25 10:28 Urine, Clean Catch Streptococcus pneumoniae Antigen (M - Final 02/05/25 17:19 Mucosa - Nose SARS-CoV-2, Influenza & RSV (PCR) - Final Physical Exam Const alert and no apparent distress HEENT head/scalp atraumatic and moist oral mucous membranes Resp normal respiratory effort, no retractions, no use of accessory muscles and clear to auscultation bilaterally Cardio regular rate, regular rhythm, S1 normal heart sound and S2 normal heart sound GI normal to inspection, nondistended, normoactive bowel sounds, soft to palpation, non-tender and non-distended Extremity Extremity Narrative: decreased LE edema. Assessment & Plan Assessment/Plan (1) Acute respiratory failure with hypoxia and hypercapnia: PLAN: Improving. Weaned down to 2l NC. 2/2 pneumonia and CHF exacerbation. Wean oxygen as tolerated. Oxygen testing reviewed and patient is ambulatory in home and in the community and requires home oxygen with portability. Requires oxygen 2l/m with rest and activity. (2) Pneumonia: PLAN: suspected pneumococcal. abx with CTX and azithromycin check urinary antigens negative. SCx showing C. albicans (which is likely a contaminant) (3) (HFpEF) heart failure with preserved ejection fraction: PLAN: Acute Change furosemide to PO. monitor (4) LINDA (acute kidney injury): PLAN: Improving. Monitor. (5) Elevated troponin I level: PLAN: trending down. 2/2 demand ischemia. no additional work up, unless change in status/symptoms (6) Tachycardia: PLAN: Resolved Read as junctional on EKG. On second look of EKG, it does not look like afib. Continue on metoprolol, but will decrease dose from 50 BID to 25 BID given HR in the 50s. PLAN: Plan VTE prophylaxis: LMWH. DW family at bedside. DC home with oxygen.
[2025-02-10 08:28] LABS: Anion Gap 11 (5-15); BUN 37 mg/dL (4-19); BUN/Creat Ratio 20.1 RATIO (10-20); Calcium,Total 9.3 mg/dL (7.6-11.0); Carbon Dioxide 37.4 mmol/L (21.0-32.0); Chloride 95 mmol/L (98-108); Creatinine, Serum 1.83 mg/dL (0.70-1.20); EST Glomerular Filtration Rate 36 (>60); Glucose 110 mg/dL (70-99); Sodium Level 143 mmol/L (133-145)
[2025-02-10 09:23] LABS: Phosphorus 3.5 mg/dL (2.7-4.5)
[2025-02-10] MEDS: Metoprolol Tartrate 25 MG Tablet PO (10:04)
[2025-02-10] MEDS: Furosemide 40 MG/4 ML Vial IV (10:04)
[2025-02-10] MEDS: Enoxaparin 40 MG/0.4 ML Syringe SC (10:04)
[2025-02-10] MEDS: 0.9% Saline Lock 10 ML Syringe IV (10:05)
--- NOTE | 2025-02-10 13:36 | PCM.DC.SUM ---
Providers Date of Admission: 02/05/25 Primary Care Physician: COURT Adkins Consultations 02/05/25 20:31 Consult: Biophysics Scientist / Pulmonary Medicine Routine Consulting Provider: Intensivists/Pulmonary Med Reason for Consult: acute hypxoxic and hypercapnic resp failure EMERGENT Consult: No MD Notified: Yes Date Notified: 02/05/25 Time Notified: 05:46 Method of Notification: Text Reason For Visit: ACUTE HYPOXIC AND HYPERCAPNIC RESPIRATORY Diagnosis Discharge Diagnosis (1) Acute respiratory failure with hypoxia and hypercapnia: Status: Acute Code(s): J96.01 - Acute respiratory failure with hypoxia; J96.02 - Acute respiratory failure with hypercapnia Plan: Improving. Weaned down to 2l NC. 2/2 pneumonia and CHF exacerbation. Wean oxygen as tolerated. Oxygen testing reviewed and patient is ambulatory in home and in the community and requires home oxygen with portability. Requires oxygen 2l/m with rest and activity. (2) Pneumonia: Status: Acute Code(s): J18.9 - Pneumonia, unspecified organism Plan: suspected pneumococcal. abx with CTX and azithromycin check urinary antigens negative. SCx showing C. albicans (which is likely a contaminant) (3) (HFpEF) heart failure with preserved ejection fraction: Status: Acute Code(s): I50.30 - Unspecified diastolic (congestive) heart failure Plan: Acute Change furosemide to PO. monitor (4) LINDA (acute kidney injury): Status: Acute Code(s): N17.9 - Acute kidney failure, unspecified Plan: Improving. Monitor. (5) Elevated troponin I level: Status: Acute Code(s): R79.89 - Other specified abnormal findings of blood chemistry Plan: trending down. 2/2 demand ischemia. no additional work up, unless change in status/symptoms (6) Tachycardia: Status: Acute Code(s): R00.0 - Tachycardia, unspecified Plan: Resolved Read as junctional on EKG. On second look of EKG, it does not look like afib. Continue on metoprolol, but will decrease dose from 50 BID to 25 BID given HR in the 50s. Plan VTE prophylaxis: LMWH. DW family at bedside. DC home with oxygen. Medications at Discharge Home Medications amoxicillin 875 mg-potassium clavulanate 125 mg tablet 1 tab PO BID #6 tabs 02/10/25 furosemide 40 mg tablet 40 mg PO DAILY #30 tabs 02/10/25 metoprolol tartrate 25 mg tablet 25 mg PO BID #60 tabs 02/10/25 Hospital Course Operations None Procedures 2-D Echocardiogram Summary of Care Provided Minutes Spent on Discharge: 32 Hospital Course: Patient presents with hypoxic respiratory failure secondary to CHF exacerbation as well as pneumonia. Patient was treated for pneumonia with ceftriaxone and azithromycin. Strep and Legionella antigens were negative. Sputum culture showed C albicans but not felt to be a true pathogen. Overall patient is doing well and will be discharged with Augmentin upon discharge. Additionally patient did have heart failure and has been diuresed and has actually responded well with diuresis. He did have some LINDA but that actually improved once the diuresis was initiated. Patient had acute HFpEF with an EF of 55% on 2D echocardiogram from February 06. Patient required oxygen upon discharge he is currently requiring 2 L with rest and activity. Given the LINDA, his lisinopril will be discontinued. He did have some transient tachycardia which appeared to be more junctional and that is improved with initiation of metoprolol. Weight / BMI Weight Weight: 134.8 kg Body Mass Index (BMI) 45.1 ABG / Lab / Microbiology Data 02/09/25 05:35 02/10/25 07:30 Laboratory: Laboratory Results - last 24 hr 02/10/25 07:30: Sodium 143, Potassium 5.0, Chloride 95 L, Carbon Dioxide 37.4 H, Anion Gap 11, BUN 37 H, Creatinine 1.83 H, Estim Creat Clear Calc 41.80 L, Est GFR (MDRD) Non-Af 36 L, BUN/Creatinine Ratio 20.1 H, Glucose 110 H, Calcium 9.3, Phosphorus 3.5, Magnesium 2.0 Microbiology: Microbiology 02/06/25 13:07 Sputum, Expectorated/Coughed Gram Stain - Final 02/06/25 13:07 Sputum, Expectorated/Coughed Respiratory Culture - Final Presumptive C albicans 02/06/25 10:28 Urine, Clean Catch Legionella Antigen - Final 02/06/25 10:28 Urine, Clean Catch Streptococcus pneumoniae Antigen (M - Final 02/05/25 17:19 Mucosa - Nose SARS-CoV-2, Influenza & RSV (PCR) - Final D/C Instructions Discharge Diet: 8 Cup Fluid Restriction and 2000 mg Sodium Diet DC O2, CPAP, BIPAP Needs Home O2 Discharge instructions: Yes Type of respiratory needs?: Oxygen Oxygen frequency: Continuous Continuous oxygen liters per minute: 2 DC home with Oxygen: Yes Home O2 MD Review: I have reviewed the oxygen testing, and the patient qualifies for home oxygen equipment and portability. The patient is mobile in the home and the community. Meaningful Use Info Meaningful Use Meaningful Use Diagnoses (Choose all that apply): CHF CHF FREDDY/ARB ordered at discharge?: No Reason FREDDY/ARB not ordered?: Normal EF Documented LVEF (%): 55 Ischemic Stroke Statin Dosing Therapy Reference: STATIN DOSE THERAPY REFERENCE: * Patients > 75 years receive moderate or high dose statin therapy. * Patients 75 years or YOUNGER should receive HIGH intensity statin dose unless contraindicated. You will be required to document reason for non-treatment if statin daily dose does not meet guidelines. HIGH DOSE STATIN THERAPY DAILY Atorvastatin > than or = to 40 mg Rosuvastatin > than or = to 20 mg Amlodipine + Atorvastatin > than or = to 2.5/40 mg Ezetimibe + Simvastatin 10/80 mg Simvastatin 80mg Discharge Plan Admission Admit Date/Time: 02/05/25 19:48 Primary Reason for Your Visit: Pneumonia. Heart failure exacerbation. Attending Provider: Shad Moffett Primary Care Provider: Shanna Fajardo NP Consulting Providers: Katy Thomas Discharge Orders/Prescriptions Prescriptions: New metoprolol tartrate 25 mg Tablet 25 mg PO BID Qty: 60 0RF furosemide 40 mg tablet 40 mg PO DAILY Qty: 30 0RF amoxicillin-pot clavulanate 875-125 mg tablet 1 tab PO BID Qty: 6 0RF Discontinued lisinopril 10 MG tablet 10 mg PO DAILY Qty: 30 0RF Referrals / Follow Up: Chris Santana DO [Non-Staff] - Within 2 Weeks Shanna Fajardo STRAINER MILL OPERATOR, STRAINER MILL OPERATOR-C [Primary Care Provider] - Disposition Disposition (needs filled in before D/C Order can be placed): Home, Self Care Charges/Coding Visit Charges Inpatient E&M: 00170 Disch Hosp >30min
--- NOTE | 2025-02-10 14:34 | CASEMGMT ---
Patient has order for discharge. Patient qualifies for home oxygen at discharge, script received. RN CM in to discuss needs at discharge. RN CM confirmed that [place] [facility] [place]. Patient denies further needs or help at discharge. Patient had no further questions or concerns. RN CM [place] [facility] [place] [facility] and arranged for tank to be delivered to room prior to discharge. RN CM updated discharge plan.
--- NOTE | 2025-02-10 14:36 | PHA.DC.MC.R ---
Pharmacy [facility] has performed discharge medication reconciliation and counseling for this patient. Prescriptions sent to [facility] and [facility], patient would like medications transferred to [facility] retail. This [facility] called retail to request transfer and then delivery to [facility]. 1. AMOXICILLIN/CLAVULANATE 875/125MG PO BID X 3 DAYS 2. FUROSEMIDE 40MG PO DAILY 3. METOPROLOL TARTRATE 25MG PO BID The patient's discharge medication list was reviewed for discrepancies and discrepancies were resolved. The patient was counseled on the following discharge medications and changes in medications for homegoing were reviewed. The Reason for Use, instructions for use, and potential side effects were reviewed for all new medications. The patient's questions regarding all of their medications were answered. The patient was able to verbally demonstrate an understanding of their discharge medications. Patient counseled by pharmacy operations specialist, Edil. Medications at Discharge Home Medications amoxicillin 875 mg-potassium clavulanate 125 mg tablet 1 tab PO BID #6 tabs 02/10/25 furosemide 40 mg tablet 40 mg PO DAILY #30 tabs 02/10/25 metoprolol tartrate 25 mg tablet 25 mg PO BID #60 tabs 02/10/25
== END 2025-02-10 15:45 | disposition home or self-care (01) | DRG 189 ==
LOC: ED 17:54 → ICU 19:56 → PCU 02-06 14:57
PROVIDERS: Internal Medicine; Internal Medicine Critical Care Medicine; Admitting Provider Student in an Organized Health Care Education/Training Program; Emergency Provider Emergency Medicine; PCP Nurse Practitioner Family
DX: J96.01 Acute respiratory failure with hypoxia (principal); I50.31 Acute diastolic (congestive) heart failure; J13 Pneumonia due to Streptococcus pneumoniae; I24.89 Other forms of acute ischemic heart disease; N17.9 Acute kidney failure, unspecified; I47.19 Other supraventricular tachycardia; J44.1 Chronic obstructive pulmonary disease with (acute) exacerbation; Z68.41 Body mass index [BMI] 40.0-44.9, adult; J44.0 Chronic obstructive pulmonary disease with (acute) lower respiratory infection; I11.0 Hypertensive heart disease with heart failure; J96.02 Acute respiratory failure with hypercapnia; E66.813 Obesity, class 3; Z79.899 Other long term (current) drug therapy; Z87.891 Personal history of nicotine dependence
CPT/HCPCS: 36415; 36600; 71045; 80048; 81001; 82570; 82803; 83605; 83735; 83880; 84100; 84145; 84300; 84484; 85025; 87070; 87205; 87449; 87631; 93005; 93306; 94002; 94003; 94640; 94762; 97162; 97166; 97530; 97535; 97802; 99284; Q9957; A4216; C8929; J1940